=== PATIENT | female | born 1950 | race Caucasian/White ===

== ENCOUNTER → 2020-03-18 | Outpatient (REF) | payer MEDICARE, OTHER ==
[2020-03-18 16:25] LABS: BLOOD UREA NITROGEN 38 MG/DL (7-18); CALCIUM LEVEL 9.4 MG/DL (8.8-10.2); CARBON DIOXIDE LEVEL 29 MEQ/L (21-32); CHLORIDE LEVEL 104 MEQ/L (98-107); CREATININE FOR GFR 0.88 MG/DL (0.55-1.30); GLOMERULAR FILTRATION RATE > 60.0 (>39); GLUCOSE, FASTING 100 MG/DL (70-100); POTASSIUM SERUM 4.4 MEQ/L (3.5-5.1); SODIUM LEVEL 137 MEQ/L (136-145)
== END ==
LOC: M PLALAB 13:08
PROVIDERS: ATTEND Surgery
DX: C50.912 Malignant neoplasm of unspecified site of left female breast (principal)

== ENCOUNTER → 2020-03-24 | Outpatient (CLI) | payer MEDICARE, OTHER ==
[~2020-03-24] MED LIST: INDE120C5 PO
[2020-03-24 12:42] VITALS: BP 140/82
--- NOTE | 2020-03-24 16:33 | REP ---
INDICATION: C50.912 LT AXILLARY LYMPH NODE BIOPSY. COMPARISON: None TECHNIQUE: Ultrasound guidance provided for biopsy of 2 nodules in the left axilla. FINDINGS: Ultrasound guidance provided for biopsy of 2 nodules in the left axilla. IMPRESSION: Ultrasound guidance provided for biopsy of 2 nodules in the left axilla. RECOMMENDATION: Clinical follow-up. <Electronically signed by Royce Loera > 03/24/20 0343
--- NOTE | 2020-03-27 13:42 | ROOPDOC ---
[facility] Report Of Operation Report of Operation DATE OF PROCEDURE: 03/24/20 Pre- procedure DIAGNOSIS: Left axillary lymph node with thickened cortex Post-procedure DIAGNOSIS: Left axillary lymph node with thickened cortex and suspicious Left axillary suspicious nodule PROCEDURE: Ultrasound guided biopsy of the Left axillary lymph node with thickened cortex with clip placement and Ultrasound guided biopsy of the left axillary suspicious nodule with clip placement SURGEON: Yesy Martinez BLOOD LOSS: minimal COMPLICATIONS: none Lidocaine 1% LOT [id number] Expiration 05/2023 Sodium Bicarbonate 8.4% LOT [id number] Expiration 08/2020 LEFT AXILLARY SUSPICIOUS NODULE BIOPSY Hydromark clip LOT [id number] Oxesqkqije68/2023 SHAPE 4 Bx device: TEMNO 18G x 20 cm LOT [id number] Expiration 12/2022 LEFT AXILLARY LYMPH NODE WITH THICKENED CORTEX Hydromark clip LOT [id number] Expiration 12/2022 SHAPE 3 Bx device: TEMNO 18G x 20 cm LOT [id number] Expiration 12/2022 Informed consent was obtained. The most common risk and possible complications including bleeding, hematoma, bruising, infection, injury to surrounding structures were explained to the patient and the patient expressed understanding. Patient was placed on the bed in the supine position. Appropriate time out was done stating patients name, date of , and the procedure to be performed. The ultrasound was used to confirm the location of enlarged lymph node with cortex measuring 4.2 mm. Upon examination of left axillary lymph node, a small hypoechoic nodule with Doppler flow was noted which was considered suspicious on my evaluation. Decision was made to biopsy the lymph node with thickened cortex and the suspicious axillary nodule. Consent was addended and patient placed her initials next to the addendum. The left axilla was prepped and draped in the usual fashion. The procedure was started with targeting of the suspicious nodule as it was harder to see on sonography. The nodule was inferior and medial to the suspicious lymph node which was in the upper axilla and more lateral. Plain Lidocaine 1% and 8.4% sodium bicarbonate 10:1 mix was used to anesthetize the skin, the biopsy site and tissues along the anticipated biopsy tract. Small skin incision was made with blade number 11. Temno 18G cannula with introducer was inserted through the incision and advanced under the ultrasound guidance to position immediately adjacent to the suspicious axillary nodule. Next, the introducer was removed and Temno 18G biopsy device was places in the cannula. The nodule was very hard to spear through and was rolling. It appeared very dense. Extreme care was used as the vein was seen in the proximity of the nodule. Pre-biopsy imaging, and post-biopsy imaging were captured. Five good core biopsies were taken at various levels of the lesion. Specimen was placed in formaldehyde, labeled with left axillary nodule and patients name, and sent to pathology for evaluation. Next, the biopsy device and cannula were withdrawn and a clip introducer was inserted into the position immediately adjacent to the biopsied lymph node. The SHAPE 4 Hydromark clip was deployed under sonographic guidance. Post-clip placement image was captured. Manual pressure over the biopsy cavity and tract was held intermittent through the procedure due to intermittent bleeding. Upon completion of this biopsy site evaluation, additional pressure was held to assure adequate hemostasis, prior to moving toward the lymph node. No bleeding was noted upon removal of the post biopsy pressure. At this point, our attention was turned toward the left axillary lymph node with thickened cortex. Plain Lidocaine 1% and 8.4% sodium bicarbonate 10:1 mix was used to anesthetize the skin, the biopsy site and tissues along the anticipated biopsy tract. Small skin incision was made with blade number 11. Temno 18G cannula with introducer was inserted through the incision and advanced under the ultrasound guidance to position immediately adjacent to the enlarged lymph node with 4.2 mm cortex. Next, the introducer was removed and Temno 18G biopsy device was places in the cannula. Pre-biopsy imaging, and post-biopsy imaging were captured. Five good core biopsies were taken at various levels of the lesion. Specimen was placed in formaldehyde, labeled with appropriate biopsy site and patients name, and sent to pathology for evaluation. Next, the biopsy device and cannula were withdrawn and a clip introducer was inserted into the position immediately adjacent to the biopsied lymph node. The SHAPE 3 Hydromark clip was deployed under sonographic guidance. Post-clip placement image was captured. Manual pressure over the biopsy cavity and tract was held again intermittently throughout the procedure due to intermittent bleeding. Upon completion of this biopsy site evaluation, additional pressure was held to assure adequate hemostasis. No bleeding was noted upon removal of the post biopsy pressure. Postprocedural dressing was placed. Patient tolerated procedure well. Discharge instructions were discussed with the patient and the patient expressed understanding. YESY MARTINEZ DO Mar 27, 2020 13:42
== END ==
LOC: M WHCPRO 09:28
PROVIDERS: ATTEND Surgery
DX: C77.3 Secondary and unspecified malignant neoplasm of axilla and upper limb lymph nodes (principal); C50.912 Malignant neoplasm of unspecified site of left female breast

== ENCOUNTER → 2020-03-26 | Outpatient (CLI) | payer MEDICARE, OTHER ==
[~2020-03-26] MED LIST changes: +PROHANCE 279.3MG/ML 15ML VIAL As Ordered ONE
--- NOTE | 2020-03-29 08:43 | REP ---
INDICATION: MALIGNANT NEOPLASM LT BREAST. Status post ultrasound-guided needle biopsy left breast lesion February 18, 2020 at [facility]. Status post ultrasound-guided needle biopsy left axillary lymph node March 24, 2020. COMPARISON: Comparison mammography February 18, 2020 and February 12, 2020. TECHNIQUE: Three [place] MRI imaging was performed with a dedicated breast coil. Axial, coronal, and sagittal T1 and T2 weighted scans were obtained with and without fat saturation in the usual fashion. The study includes dynamically acquired post gadolinium-enhanced imaging with image subtraction. Maximum intensity projection and multi planar reformation imaging is included as well. This study is interpreted with the aid of Monitoring Division[employer], an FDA approved computer aided detection (CAD) software program, on a dedicated breast MRI workstation. The gadolinium enhancement dose is 13 mL of intravenous ProHance. FINDINGS: There are scattered fibroglandular elements bilaterally. There is a mild pattern of background parenchymal enhancement. In the left breast medially there are 2 spiculated enhancing suspicious mass is 1 very superficial and anterior in the medial aspect of the left breast measuring 8 mm in greatest diameter and the other located 2.7 cm posterior to the 1st in the medial left breast. This 2nd lesion measures 7 mm in greatest diameter. These both spiculated morphologically and both display post biopsy marker clips in their periphery. No other suspicious lesion is seen within the left breast. No suspicious lesion is seen in the right breast on pre or postcontrast imaging. There are 2 lymph nodes in the left axilla which are larger than the rest of the lymph nodes in either breast. These are not definitely abnormal by MR criteria. They measure 1 cm each in short axis dimension. Each of these displays in magnetic field susceptibility artifact from a ultrasound-guided needle biopsy marker clip. There is some post biopsy edema in the axillary subcutaneous tissues. There are 4 - 5 other axillary lymph nodes visible which are smaller and not enlarged. No internal mammary adenopathy is appreciated. Study is otherwise unremarkable. IMPRESSION: BI-RADS category 6 known left breast malignancy with 2 suspicious spiculated small masses in the medial aspect of the left breast, each of which displays a marker clip post biopsy. Marker clips are noted in 2 biopsied left axillary lymph nodes. These 2 nodes are the largest lymph nodes visible in either axilla. No other suspicious finding. <Electronically signed by Nelson Garcia > 03/29/20 1225
== END ==
LOC: M RAD 14:16
PROVIDERS: ATTEND Surgery
DX: C50.912 Malignant neoplasm of unspecified site of left female breast (principal)
CPT/HCPCS: A9576; C8908

== ENCOUNTER → 2020-04-23 | Outpatient (CLI) | payer MEDICARE, OTHER ==
[~2020-04-23] MED LIST changes: -PROHANCE 279.3MG/ML 15ML VIAL As Ordered ONE
== END ==
LOC: M LABSMTC 11:11
PROVIDERS: ATTEND Anesthesiology
DX: Z01.812 Encounter for preprocedural laboratory examination (principal); Z20.822 Contact with and (suspected) exposure to COVID-19

== ENCOUNTER 2020-04-28 10:48 | Day surgery (SDC) | payer MEDICARE, OTHER ==
[~2020-04-28] VITALS: Ht 152.4 cm; Wt 67.5 kg
[~2020-04-28 10:48] MED LIST changes: +HEPARIN SOD (PORCINE) 5000UNITS/ML 1ML VIAL/SYRINGE SQ ONE; +LIDOCAINE 1% MDV 20ML VIAL SQ PRN; +LR 1,000 ML IV ONE; +NS 1,000 ML IV ONE; +ceFAZolin SOD 2 GM in IV 1 EA IV ONE
--- OUTSIDE RECORDS SUMMARY | 2020-04-28 10:53 | CCD | Continuity of Care Document ---
Author Author [facility] Organization [facility] Address [address] [place] [address] Phone Support Name Relationship Address Phone Jeff Flowers PRS [address] [place] [address] Doctor Provided, Family No PRS Unknown Unava ilable Anuja Lopez PRS [address] [place] [address] Allergies, Adverse Reactions, Alerts No known allergies. Medications Medication Status Dose Units Route Directions Qty Days Start Date End Date Instructions Tramadol Discontinued 50 MG PO 2 Times Per Day 60 August 08, 2018 10:53am January 17, 2019 8:51am Conjugated Estrogens (Premarin) 0.625 mg tablet Discontinued 0.625 MG PO Once Per Day January 17, 2019 9:13am 2020 9:23am Propranolol Discontinued 120 MG PO Once Per Day January 17, 2019 9:14am 2020 9:23am Conjugated Estrogens (Premarin) 0.625 mg tablet Active 0.625 MG PO Once Per Day 2020 9:23am Propranolol Discontinued 120 MG PO Once Per Day 2020 9:23am 2020 9:39am Propranolol Active 120 MG PO Once Per Day 2020 9:39am Conjugated Estrogens (Premarin) 0.3 MG tablet Discontinued 0.6 MG PO Once Per Day May 02, 2018 11:34am August 08, 2018 10:13am Propranolol Discontinued 2 TAB PO Once Per Day 180 July 21, 2014 7:43am August 31, 2015 9:02am Naproxen Sodium (Aleve) 220 MG tablet Discontinued 220 MG PO Every 12 Hours 100 July 21, 2014 7:43am October 05, 2016 8:45am prn Conjugated Estrogens (Premarin) 0.625 MG tablet Discontinued 0.625 MG PO Once Per Day 90 July 21, 2014 7:43am August 31, 2015 9:02am Aspirin (Aspirin Low-Strength) 81 MG tablet,chewable Active 81 MG PO Once Per Day July 21, 2014 7:43am Conjugated Estrogens (Premarin) 0.625 MG tablet Discontinued 0.625 MG PO Once Per Day 90 August 31, 2015 9:02am October 05, 2016 9:36am Acetaminophen (Acetaminophen Extra Strength) 500 MG ta blet Discontinued 1000 MG PO Every 6 hours October 05, 2016 8:45am November 212016 10:05am Tramadol Discontinued 50 MG PO 2 Times Per Day 60 October 05, 2016 9:36am November 21, 2016 10:30am Conjugated Estrogens (Premarin*) 0.625 MG tablet Discontinued 0.625 MG PO Once Per Day 90 October 05, 2016 9:36am October 04, 2017 1:05pm Propranolol Discontinued 120 MG PO Once Per Day 90 October 05, 2016 9:36am October 04, 2017 1:05pm Tramadol Discontinued 50 MG PO 2 Times Per Day 60 November 21, 2016 10:30am January 30, 2017 9:40am Tramadol Discontinued 50 MG PO 2 Times Per Day 60 January 30, 2017 9:40am June 28, 2017 1:21pm Tramadol Discontinued 50 MG PO 2 Times Per Day 60 June 28, 2017 1:21pm August 21, 2017 8:40am Omeprazole Discontinued 20 MG PO Once Per Day 90 June 28, 2017 1:21pm July 03, 2018 6:41am Omeprazole Discontinued 20 MG PO Once Per Day 90 June 28, 2017 1:21pm January 17, 2019 8:51am Tramadol Discontinued 50 MG PO 2 Times Per Day 60 August 21, 2017 8:40am October 30, 2017 11:51am Conjugated Estrogens (Premarin) 0.625 MG tablet Discontinued 0.625 MG PO Once Per Day October 04, 2017 1:05pm July 03, 2018 7:21am Conjugated Estrogens (Premarin) 0.625 MG tablet Discontinued 0.625 MG PO Once Per Day 90 October 04, 2017 1:05pm November 05, 2018 1:58pm Propranolol Discontinued 120 MG PO Once Per Day 90 October 04, 2017 1:05pm July 03, 2018 7:21am Propranolol Discontinued 120 MG PO Once Per Day October 04, 2017 1:05pm November 05, 2018 1:58pm Tramadol Discontinued 50 MG PO 2 Times Per Day 60 October 30, 2017 11:52am November 27, 2017 8:35am Tramadol Discontinued 50 MG PO 2 Times Per Day 60 November 27, 2017 8:35am January 10, 2018 3:10pm Tramadol Discontinued 50 MG PO 2 Times Per Day 60 January 10, 2018 3:10pm May 09, 2018 2:07pm Tramadol Discontinued 50 MG PO 2 Times Per Day 60 May 09, 2018 2:07pm May 09, 2018 2:12pm Tramadol Discontinued 50 MG PO 2 Times Per Day 60 May 09, 2018 2:12pm May 09, 2018 2:13pm Tramadol Discontinued 50 MG PO 2 Times Per Day 60 May 09, 2018 2:13pm July 02, 2018 9:50am Tramadol Discontinued 50 MG PO 2 Times Per Day 60 July 02, 2018 9:50am July 03, 2018 10:59am Tramadol Discontinued 50 MG PO 2 Times Per Day 60 July 02, 2018 9:50am August 08, 2018 10:53am Conjugated Estrogens (Premarin) 0.625 mg tablet Discontinued 0.625 MG PO Once Per Day 90 November 05, 2018 1:57pm January 17, 2019 9:18am Propranolol Discontinued 120 MG PO Once Per Day 90 November 05, 2018 1:58pm January 17, 2019 9:18am Problems Active Problems Medical Problem Onset Date Status Migraine Active Breast cancer Active Postmenopausal disorder Active Inactive/Resolved Problems Medical Problem Onset Date Status Acute appendicitis Res olved Acute appendicitis with rupture Resolved Procedures Procedure Date Performed Status US BREAST BIOPSY W/ GUID ADDL Decemb er 2019 11:10am active US BREAST BIOPSY W/ GUIDANCE Decembe r 2019 11:10am active DIG MAMMO DIAG LT 2D ONLY February 022019 11:12am active US Breast - Limited Unilat February 12, 2020 8:34am completed 3D DIG MAMMO DIAG YOSSI February 12, 2020 3:45pm completed Relevant Diagnostic Tests and/or Laboratory Data Laboratory Results Test Date/Time Result Interpretation Reference Range Result Comment Performing Site White Blood Count January 20 0 8:15am 6.4 10e3/uL 4.45-10.71 [facility], [address] [facility] [address] Red Blood Count January 21, 2020 8:15am 4.41 10e6/uL 4.20-5.40 [facility], [address] [place] [address] Hemoglobin January 21, 2020 8:15am 12.7 g/dL 10.7-15.4 [facility], [address] [place] [address] Hematocrit January 21, 2020 8:15am 40.9 % 37-47 [facility], [address] [place] [address] Mean Corpuscular Volume January 8:15am 92.7 fl 80-96 [facility], [address] [place], [place] [id number] Mean Corpuscular Hemoglobin January 21, 2020 8:15am 28.8 pg 27-31 [facility], [address] [place], [place] [id number] Mean Corpuscular Hemoglobin Concent January 21, 2020 8:15am 31.1 g/dl 33-37 [facility], [address] [place] [address]402 Red Cell Distribution Width January 21, 2020 8:15am 14 % 11-15 [facility], [address] [place], [place] [id number] Platelet Count January 21, 2020 8:15am 260 10e3/ul 130-472 [facility], [address] [place], [place] [id number] Mean Platelet Volume January 21, 2020 8:15am 9.7 fl 9.1-13.1 [facility], [address] [place] [address] 24198 Neutrophils (%) (Auto) January 8:15am 50.9 % 41-77 [facility], [address] [place] [address] 22752 Absolute Neutrophil January 20, 2 020 8:15am 3.3 # 1.7-7.6 [facility], [address] [place] [address] 12973 Lymphocytes (%) (Auto) January 8:15am 38.8 % 14-46 [facility], [address] [place] [address]61 Lymphocytes # (Auto) January 21, 2020 8:15am 2.5 # 0.6-4.6 [facility], [address] [place] [address] 86868 Monocytes (%) (Auto) January 21, 2020 8:15am 6.1 % 4-12 [facility], [address] [place] [address] 85550 Monocytes # January 21, 2020 8:15am 0.4 # 0.2-1.2 [facility], [address] [place] [address] 97606 Eosinophils (%) (Auto) January 8:15am 3.0 % 0-7 [facility], [address] [place] [address] 52576 Absolute Eosinophils (CBC) January 21, 2020 8:15am 0.2 # 0.0-0.5 [facility], [address] [place] [address] 27402 Basophils (%) (Auto) January 21, 2020 8:15am 0.9 % 0.4-1.3 [facility], [address] [place] [address] 65576 Absolute Basophils (CBC) January 202019 8:15am 0.1 # 0.0-0.2 [facility], [address] [place] [address] 22813 Immature Granulocyte % (Auto) Novemb 2019 8:15am 0.3 % 0-2 [facility], [address] [place] [address] 39397 Absolute Immature Granulocyte (auto January 21, 2020 8:15am 0.0 # 0-0.1 [facility], [address] [place] [address] 71634 Add Manual Differential January 8:15am No [facility], [address] [place] [address] 11705 Blood Urea Nitrogen January 20 020 8:15am 18 mg/dL 9 [facility], [address] [place] [address] 95409 Sodium Level January 21, 2020 8:15am 140 mmol/L 132-146 [facility], [address] [place] [address] 77214 Potassium Level January 21, 2020 8:15am 4.6 mmol/L 3.5-5.5 [facility], [address] [place] [address] 03125 Chloride Level January 21, 2020 8:15am 105 mmol/l 99-109 [facility], [address] [place] [address] 86695 Carbon Dioxide Level January 21, 2020 8:15am 30 mmol/l 20-31 [facility], [address] [place] [address] 70946 Anion Gap January 21, 2020 8:15am 10 mmol/l 8-16 [facility], [address] [place] [address] 58332 Glucose Level January 21, 2020 8:15am 104 mg/dL 74-106 [facility], [address] [place] [address] 7[address]20 Creatinine January 21, 2020 8:15am 0.8 mg/dL 0.5-1.1 [facility], [address] [place] [address] 31695 Glomerular Filtration Rate Calc Nove mber 2019 8:15am Greater than 60 ml/min ABOVE 60 [facility], [address] [place] [address] 01363 Alanine Aminotransferase (ALT/SGPT) January 21, 2020 8:15am 14 U/L 10-49 [facility], [address] [place] [address] 38290 Aspartate Amino Transf (AST/SGOT) No vember 2019 8:15am 17 U/L 0-33 [facility], [address] [place] [address] Alkaline Phosphatase January 21, 2020 8:15am 62 U/L 45-129 [facility], [address] [place] [address] 62825 Calcium Level January 21, 2020 8:15am 9.1 mg/dL 8.5-10.1 [facility], [address] [place] [address] 27048 Total Bilirubin January 21, 2020 8:15am 0.3 mg/dL 0.3-1.2 [facility], [address] [place] [address] 81578 Albumin January 21, 2020 8:15am 3.3 g/dL 3.2-4.8 [facility], [address] [place] [address] 08566 Serum Total Protein January 20 8:15am 7.1 g/dL 5.7-8.2 [facility], [address] [place] [address] 81144 Triglycerides Level January 20 8:15am 255 mg/dL 0-150 [facility], [address] [place] [address] 58267 Cholesterol Level January 20 0 8:15am 247 mg/dL 120-200 [facility], [address] [place] [address] 48299 HDL Cholesterol January 21, 2020 8:15am 63 mg/dL HDL Less than 40 mg/dL: Major risk for CHDHDL Greater than 59 mg/dL: Low risk for CHD [facility], [address] [facility] [address] LDL Cholesterol, Calculated January 21, 2020 8:15am 133 mg/dL 0-100 [facility], [address] [facility] [address] Surgical Pathology Specimen February 18, 2020 11:11am See scanned report [facility], [address] [facility] [address] Diagnostic Imaging Reports Report Dictated Date/Time Dictated By Status Radiology Report February 13, 2020 9:27a m Lucille Santo MD completed [facility] [address] [place] [address] [phone] NAME SEX PT STATUS ACCOUNT NUMBER JORGE RUANO REG REF [id number] ORDERING PHYSICIAN LOCATION MEDICAL RECORD NO. Anuja JORGE LUIS Lopez MAMMO [id number] ATTENDING PHYSICIAN DATE OF DATE OF EXAM/TIME Anuja Lopez NP 1950 02[birth year]12/20833 TYPE / EXAM US Breast - Limited Unilat REASON FOR EXAM LEFT BREAST LUMP COMPARISON: None Multiple images of the left breast at the 8:00 location were obtained, encompassing the area of clinical concern. FINDINGS: There are 2 solid masses identified ON seen at 8:00 just beneath the skin measuring approximately 7.3 x 7.8 x 0.8 by 6.1 mm. The second is demonstrated mid depth at 8:00 measuring approximately 8.2 x 8.7 x 9.3 mm with posterior shadowing and tolerated than wide appearance indistinct margins. Both masses are considered highly suspicious for neoplasia. IMPRESSION: Two suspicious masses at 8:00. Ultrasound-guided biopsy of both masses is recommended for further evaluation. OVERALL FINAL ASSESSMENT OF FINDINGS BI-RADS 5 - Highly Suggestive of Malignancy Reported By Lucille Santo MD on 02/13/20926 Signed By Lucille Santo MD on 02/13/20928 Date Time CC: Anuja KANG John; Lucille Santo MD Techn: JOSE RAUL Trans Dt/Tm: Trans by: DT Prt Dt/Tm: [id number]: Total DLP = 0.00 mGy-cm 7369-4006: Total Radiation Dose = 0.0000 mSv Lifetime Dose: 0 mSv Radiology Report February 13, 2020 3:55p m Lucille Santo MD [facility] [address] [place] [address] [phone] NAME SEX PT STATUS ACCOUNT NUMBER JORGE RUANO REG REF [id number] ORDERING PHYSICIAN LOCATION MEDICAL RECORD NO. 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 FINDINGS: Craniocaudad and oblique lateral views of the breasts were obtained. The b reasts are primarily of fat density. There is an 8 mm mass seen in the medial aspect of the left breast in the palpable region indicated by the patient. There is an additional 8mm mass seen posterior to that region which appears to be connected to the palpable area TARGETED ULTRASOUND OF THE LEFT BREAST. COMPARISON: None FINDINGS: Ultrasound left breast in the palpable region reveals a subcutaneous mass measuring approximately 0.73 x 0.7 85.61 cm with ill-defined margins and features highly suspicious of neoplasia. A second mass is seen posteriorly and slightly medially at 8:00 with posterior shadowing measuring approximately 0.82 x 0.87 x 0.93 cm that also has features considered highly suspicious for neoplasia. Ultrasound left axilla revealed morphologically normal lymph nodes. However one lymph node had a cortical thickness of approximately 4.1 mm. IMPRESSION: There is an area of spiculated mass seen in the corresponds to the palpable region in the left breast. A second area is noted posteriorly and appears to be connected to the first mass. This mass is also considered highly suspicious for malignancy. Both masses are identified on ultrasound. Ultrasound-guided biopsy is recommended for further evaluation. Ultrasound the axilla revealed one lymph node that has a cortical thickness of 4 mm. This area will be rescanned and co nsidered for biopsy as well at the time of biopsy of the 2 masses in the left breast.. OVERALL FINAL ASSESSMENT OF FINDINGS BI-RADS 5 - Highly Suggestive of Malignancy OVERALL FINAL ASSESSMENT OF THE BREAST COMPOSITION Breast Density Classification: A Description: The breasts are almost entirely fatty. Reported By Lucille Santo MD on 02/13/20 1555 Signed By Lucille Santo MD on 02/13/20 1630 Date Time CC: Anuja Lopez; Lucille Santo MD Techn: PELBU Trans Dt/Tm: Trans by: DT Prt Dt/Tm: : Total DLP = 0.00 mGy-cm : Total Radiation Dose = 0.0000 mSv Lifetime Dose: 0 mSv Health Concerns Health Concerns may be documented in an alternate section. Advance Directives Advance Directive Response Recorded Date/Time Advanced Directive No Ma 2018 1:17pm Does Patient have a DNR? No July 24, 2018 1:17pm Healthcare Proxy No July 24, 2018 1:17pm Living Will No July 24, 2018 1:17pm Chief Complaint and Reason for Visit Chief Complaint Medicare Annual Well ness subsequent Encounter to Establish Care Z09,E78.5 LUMP LEFT BREAST BIOPSY X 2 Test result Reason for Visit Migraine Encounters Encounter Location(s) Ar rival/Admit Date Discharge/Depart Date Provider(s) Departed Physician/Provider Office Visit -[facility] May 27, 2019 7:59am May 27, 2019 9:17am Jeff Flowers MD Departed Physician/Provider Office Visit -[facility] 2020 9:09am 2020 10:08am Anuja Lopez Registered Referred -Laboratory January 21, 2020 8:07am Anuja Lopez Registered Referred -Mammography February 12, 2020 7:34am Anuja Lopez Registered Referred -Ultrasound February 18, 2020 9:48am Anuja Lopez Departed Physician/Provider Office Visit -[facility] February 25, 2020 1:56pm February 25, 2020 2:41pm Anuja Lopez Recent Diagnosis Onset Date Migraine Assessments Diagnosis Onset Date Res olution Status Migraine acute Family History Relationship Condition A ge at Onset Recorded Date/Time Not Specified Vision disorder Unknown Diabetes mellitus Unkn own Cerebrovascular accident (CVA) Unknown Carcinoma of prostate Unknown Blindness of both eyes Unknown Functional Status No Functional Status information available Goals Goals may be documented in an alternate section. Immunizations No Immunization Information Available Mental Status No Mental Status Information Available Medical Equipment No Medical Equipment Information available Insurance Providers Guarantor JORGE RUANO Address [address] [place] [address] Contact Info. Home Phone: Payer Policy Id Coverage Id Subscriber's Name Subscriber Id Effective Date Expiration Date MEDICARE [employer] [id number] Jorge Ruano [id number] 2014 [facility] [id number] Jorge Ruano [id number] 2014 [facility] SA[facility] [id number] Jorge Ruano [id number] MEDICARE [id number] Jorge Ruano [id number] Self Pay Self N/A [facility] [id number] Jorge Ruano [id number] Plan of Treatment DUE FOR FLU SHOT, PNEUMONIA SHOT, SHINGRIX WANTS TO THINK ABOUT IT. IS IN HOSPITAL. DOESN'T WANT TO DO THEM TODAY. RTC MAY 2020 Doing well. Continue current plan and recheck 12 months for next annual wellness visit. Future Tests Future scheduled test information is unavailable Pending Tests Pending diagnostic test information is unavailable Future Visits Future appointment information is unavailable Referrals to Other Providers Referral information is unavailable Future Procedures Future procedure information is unavailable Future Medications Future medication information is unavailable Patient Instructions Patient instructions are unavailable Social History Smoking Status Status Date of Observation Never smoker December 22, 2019 11:0 8am Observation Status Date of Observation Not July 24, 2018 Observation Status Observation Response Rigoberto e of Response Smoking Status Never smoker December 22, 2019 10:08am Alcohol Use No July 24, 2018 1:17pm Substance Use No July 1:17pm Assigned Sex Female Vital Signs Vital Reading Result Ref erence Range Collection Date/Time Height 61 [in_i] May 27, 2019 9:07am Weight 151.12 [lb_av] May 27, 2019 9:07am Body Temperature 98 [degF] 97.6-99.5 May 27, 2019 9:07am Heart Rate 82 /min 60-100 May 27, 2019 9:07am Respiratory rate 18 /min 12-May 27, 2019 9:07am Oxygen saturation by Pulse oximetry 98 % 95- 100 May 27, 2019 9:07am BP Systolic 102 mm[Hg] May 27, 2019 9:07am BP Diastolic 64 mm[Hg] May 27, 2019 9:07am BMI (Body Mass Index) 28.5 kg/m2 May 27, 2019 9:07am Height 61 [in_i] 2020 9:20am Weight 148.05 [lb_av] 2020 9:20am Heart Rate 68 /min 60-100 2020 9:20am Respiratory rate 18 /min -2020 9:20am Oxygen saturation by Pulse oximetry 98 % 95- 100 2020 9:20am BP Systolic 120 mm[Hg] 2020 9:20am BP Diastolic 60 mm[Hg] 2020 9:20am BMI (Body Mass Index) 27.9 kg/m2 2020 9:20am
--- OUTSIDE RECORDS SUMMARY | 2020-04-28 10:53 | CCD ---
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 Name Role Phone Chary Park MD Unavailable Unavailable Chary Park MD Unavailable Unavailable Chary Park MD Unavailable Unavailable Chary Park MD Unavailable Unavailable Chary Park MD Unavailable Unavailable Chary Park MD Unavailable Unavailable John, H Anuja JIRA ADMINISTRATOR Unavailable Unavailable John, H Anuja JIRA ADMINISTRATOR Unavailable Unavailable John, H Anuja JIRA ADMINISTRATOR Unavailable Unavailable John, H Anuja JIRA ADMINISTRATOR Unavailable Unavailable John, H Anuja JIRA ADMINISTRATOR Unavailable Unavailable John, H Anuja JIRA ADMINISTRATOR Unavailable Unavailable John, H Anuja JIRA ADMINISTRATOR Unavailable Unavailable John, H Anuja JIRA ADMINISTRATOR Unavailable Unavailable John, H Anuja JIRA ADMINISTRATOR Unavailable Unavailable John, H Anuja JIRA ADMINISTRATOR Unavailable Unavailable John, H Anuja JIRA ADMINISTRATOR Unavailable Unavailable John, H Anuja JIRA ADMINISTRATOR Unavailable Unavailable John, H Anuja JIRA ADMINISTRATOR Unavailable Unavailable John, H Anuja JIRA ADMINISTRATOR Unavailable Unavailable John, H Anuja JIRA ADMINISTRATOR Unavailable Unavailable John, H Anuja JIRA ADMINISTRATOR Unavailable Unavailable John, H Anuja JIRA ADMINISTRATOR Unavailable Unavailable John, H Anuja JIRA ADMINISTRATOR Unavailable Unavailable John, H Anuja JIRA ADMINISTRATOR Unavailable Unavailable John, H Anuja JIRA ADMINISTRATOR Unavailable Unavailable John, H Anuja JIRA ADMINISTRATOR Unavailable Unavailable John, H Anuja JIRA ADMINISTRATOR Unavailable Unavailable John, H Anuja JIRA ADMINISTRATOR Unavailable Unavailable John, H Anuja JIRA ADMINISTRATOR Unavailable Unavailable John, H Anuja JIRA ADMINISTRATOR Unavailable Unavailable Jonh, H Anuja JIRA ADMINISTRATOR Unavailable Unavailable John, H Anuja JIRA ADMINISTRATOR Unavailable Unavailable John, H Anuja JIRA ADMINISTRATOR Unavailable Unavailable John, H Anuja JIRA ADMINISTRATOR Unavailable Unavailable John, H Anuja JIRA ADMINISTRATOR Unavailable Unavailable John, H Anuja JIRA ADMINISTRATOR Unavailable Unavailable John, H Anuja JIRA ADMINISTRATOR Unavailable Unavailable Ojhn, H Anuja JIRA ADMINISTRATOR Unavailable Unavailable John, H Anuja JIRA ADMINISTRATOR Unavailable Unavailable John, H Anuja JIRA ADMINISTRATOR Unavailable Unavailable John, H Anuja JIRA ADMINISTRATOR Unavailable Unavailable John, H Anuja JIRA ADMINISTRATOR Unavailable Unavailable John, H Anuja JIRA ADMINISTRATOR Unavailable Unavailable John, H Anuja JIRA ADMINISTRATOR Unavailable Unavailable John, H Anuja JIRA ADMINISTRATOR Unavailable Unavailable John, H Anuja JIRA ADMINISTRATOR Unavailable Unavailable John, H Anuja JIRA ADMINISTRATOR Unavailable Unavailable John, H Anuja JIRA ADMINISTRATOR Unavailable Unavailable John, H Anuja JIRA ADMINISTRATOR Unavailable Unavailable John, H Anuja JIRA ADMINISTRATOR Unavailable Unavailable John, H Anuja JIRA ADMINISTRATOR Unavailable Unavailable John, H Anuja JIRA ADMINISTRATOR Unavailable Unavailable John, H Anuja JIRA ADMINISTRATOR Unavailable Unavailable John, H Anuja JIRA ADMINISTRATOR Unavailable Unavailable John, H Anuja JIRA ADMINISTRATOR Unavailable Unavailable John, H Anuja JIRA ADMINISTRATOR Unavailable Unavailable John, H Anuja JIRA ADMINISTRATOR Unavailable Unavailable John, H Anuja JIRA ADMINISTRATOR Unavailable Unavailable John, H Anuja JIRA ADMINISTRATOR Unavailable Unavailable John, H Anuja JIRA ADMINISTRATOR Unavailable Unavailable John, H Anuja JIRA ADMINISTRATOR Unavailable Unavailable John, H Anuja JIRA ADMINISTRATOR Unavailable Unavailable Ramiro Holland MD Unavailable Unavailable Ramiro Holland MD Unavailable Unavailable Ramiro Holland MD Unavailable Unavailable Ramiro Holland MD Unavailable Unavailable Ramiro Holland MD Unavailable Unavailable Ramiro Holland MD Unavailable Unavailable Ramiro Holland MD Unavailable Unavailable Ramiro Holland MD Unavailable Unavailable Ramiro Holland MD Unavailable Unavailable Ramiro Holland MD Unavailable Unavailable Ramiro Holland MD Unavailable Unavailable Ramiro Holland MD Unavailable Unavailable Ramiro Holland MD Unavailable Unavailable Ramiro Holland MD Unavailable Unavailable Ramiro Holland MD Unavailable Unavailable Ramiro Holland MD Unavailable Unavailable Ramiro Holland MD Unavailable Unavailable Ramiro Holland MD Unavailable Unavailable Ramiro Holland MD Unavailable Unavailable Ramiro Holland MD Unavailable Unavailable Ramiro Holland MD Unavailable Unavailable Ramiro Holland MD Unavailable Unavailable Ramiro Holland MD Unavailable Unavailable Ramiro Holland MD Unavailable Unavailable Ramiro Holland MD Unavailable Unavailable Ramiro Holland MD Unavailable Unavailable Ramiro Holland MD Unavailable Unavailable Ramiro Holland MD Unavailable Unavailable Ramiro Holland MD Unavailable Unavailable Ramiro Holland MD Unavailable Unavailable Ramiro Holland MD Unavailable Unavailable Ramiro Holland MD Unavailable Unavailable Ramiro Holland MD Unavailable Unavailable Ramiro Holland MD Unavailable Unavailable Ramiro Holland MD Unavailable Unavailable Ramiro Holland MD Unavailable Unavailable Ramiro Holland MD Unavailable Unavailable Ramiro Holland MD Unavailable Unavailable Ramiro Holland MD Unavailable Unavailable Ramiro Holland MD Unavailable Unavailable Ramiro Hloland MD Unavailable Unavailable Ramiro Holland MD Unavailable Unavailable Ramiro Holland MD Unavailable Unavailable Ramiro Holland MD Unavailable Unavailable Ramiro Holland MD Unavailable Unavailable Ramiro Holland MD Unavailable Unavailable Ramiro Holland MD Unavailable Unavailable Ramiro Holland MD Unavailable Unavailable Ramiro Holland MD Unavailable Unavailable Ramiro Holland MD Unavailable Unavailable Ramiro Holland MD Unavailable Unavailable Ramiro Holland MD Unavailable Unavailable Ramiro Holland MD Unavailable Unavailable Ramiro Holland MD Unavailable Unavailable Ramiro Holland MD Unavailable Unavailable Ramiro Holland MD Unavailable Unavailable Ramiro Holland MD Unavailable Unavailable Ramiro Holland MD Unavailable Unavailable Ramiro Holland MD Unavailable Unavailable Ramiro Holland MD Unavailable Unavailable Ramiro Holland MD Unavailable Unavailable Ramiro Holland MD Unavailable Unavailable Ramiro Holland MD Unavailable Unavailable Ramiro Holland MD Unavailable Unavailable Ramiro Holland MD Unavailable Unavailable Ramiro Holland MD Unavailable Unavailable Ramiro Holland MD Unavailable Unavailable Ramiro Holland MD Unavailable Unavailable Ramiro Holland MD Unavailable Unavailable Ramiro Holland MD Unavailable Unavailable Ramiro Holland MD Unavailable Unavailable Ramiro Holland MD Unavailable Unavailable Ramiro Holland MD Unavailable Unavailable Ramiro Holland MD Unavailable Unavailable Ramiro Holland MD Unavailable Unavailable Ramiro Holland MD Unavailable Unavailable Ramiro Holland MD Unavailable Unavailable Ramiro Holland MD Unavailable Unavailable Ramiro Holland MD Unavailable Unavailable Ramiro Holland MD Unavailable Unavailable Ramiro Holland MD Unavailable Unavailable Ramiro Holland MD Unavailable Unavailable Ramiro Holland MD Unavailable Unavailable Ramiro Holland MD Unavailable Unavailable Ramiro Holland MD Unavailable Unavailable Ramiro Holland MD Unavailable Unavailable Ramiro Holland MD Unavailable Unavailable Ramiro Holland MD Unavailable Unavailable Ramiro Holland MD Unavailable Unavailable Doctor Provided, Family PHYS No Family Unavailable U navailable YENI DC MD Unavailable Unavailable YENI DC MD Unavailable Unavailable YENI DC MD Unavailable Unavailable YENI DC MD Unavailable Unavailable YENI DC MD Unavailable Unavailable YENI DC MD Unavailable Unavailable YENI DC MD Unavailable Unavailable YENI DC MD Unavailable Unavailable YENI DC MD Unavailable Unavailable YENI DC MD Unavailable Unavailable YENI DC MD Unavailable Unavailable YENI DC MD Unavailable Unavailable YENI DC MD Unavailable Unavailable JEN, YENI MD Unavailable Unavailable JEN, YENI MD Unavailable Unavailable JEN, YENI MD Unavailable Unavailable JEN, YENI MD Unavailable Unavailable JEN, YENI MD Unavailable Unavailable JEN, YENI MD Unavailable Unavailable JEN, YENI MD Unavailable Unavailable JEN, YENI MD Unavailable Unavailable JEN, YENI MD Unavailable Unavailable JEN, YENI MD Unavailable Unavailable JEN, YENI MD Unavailable Unavailable JEN, YENI MD Unavailable Unavailable JEN, YENI MD Unavailable Unavailable JEN, YENI MD Unavailable Unavailable JEN, YENI MD Unavailable Unavailable JEN, YENI MD Unavailable Unavailable JEN, YENI MD Unavailable Unavailable JEN, YENI MD Unavailable Unavailable JEN, YENI MD Unavailable Unavailable JEN, YENI MD Unavailable Unavailable JEN, YENI MD Unavailable Unavailable JEN, YENI MD Unavailable Unavailable JEN, YENI MD Unavailable Unavailable JEN, YENI MD Unavailable Unavailable JEN, YENI MD Unavailable Unavailable JEN, YENI MD Unavailable Unavailable JEN, YENI MD Unavailable Unavailable JEN, YENI MD Unavailable Unavailable JEN, YENI MD Unavailable Unavailable JEN, YENI MD Unavailable Unavailable JEN, YENI MD Unavailable Unavailable JEN, YENI MD Unavailable Unavailable JEN, YENI MD Unavailable Unavailable JEN, YENI MD Unavailable Unavailable JEN, YENI MD Unavailable Unavailable JEN, YENI MD Unavailable Unavailable JEN, YENI MD Unavailable Unavailable JEN, YENI MD Unavailable Unavailable JEN, YENI MD Unavailable Unavailable Re-disclosure Warning The records that you are about to access may contain information from federally-assisted alcohol or drug abuse programs. If such information is present, then the following federally mandated warning applies: This information has been disclosed to you from records protected by federal confidentiality rules (42 CFR part 2). The federal rules prohibit you from making any further disclosure of this information unless further disclosure is expressly permitted by the written consent of the person to whom it pertains or as otherwise permitted by 42 CFR part 2. A general authorization for the release of medical or other information is NOT sufficient for this purpose. The Federal rules restrict any use of the information to criminally investigate or prosecute any alcohol or drug abuse patient.The records that you are about to access may contain highly sensitive health information, the redisclosure of which is protected by Article 27-F of the [facility] Public Health law. If you continue you may have access to information: Regarding HIV / AIDS; Provided by facilities licensed or operated by the [facility] Office of Mental Health; or Provided by the [facility] Office for People With Developmental Disabilities. If such information is present, then the following [facility] mandated warning applies: This information has been disclosed to you from confidential records which are protected by state law. State law prohibits you from making any further disclosure of this information without the specific written consent of the person to whom it pertains, or as otherwise permitted by law. Any unauthorized further disclosure in violation of state law may result in a fine or halfway sentence or both. A general authorization for the release of medical or other information is NOT sufficient authorization for further disc losure. Allergies and Adverse Reactions Type Description Substance Reaction Status Data Source(s ) Drug allergy No Known Drug Allergies No Known Drug Allergies [facility] Family History Family Member Name Family Member Gender Family Member Status Date o f Status Description Data Source(s) Unknown Condition [facility] Unknown Condition [facility] Unknown Condition [facility] Unknown Condition [facility] Unknown Condition [facility] Condition [facility] Condition [facility] Condition [facility] Condition [facility] Condition [facility] Condition [facility] Condition [facility] Condition [facility] Condition [facility] Condition [facility] Condition [facility] Condition [facility] Condition [facility] Condition [facility] Condition [facility] Condition [facility] Unknown Condition [facility] Unknown Condition [facility] Unknown Condition [facility] Encounters Encounter Providers Location Date Indications Data Source(s ) Outpatient Attender: YENI DC MD 04/20/2020 09:52:00 AM ES T R94.5 [facility] R94.5 Outpatient Attender: YENI DC MDReferrer: Anuja Lopez NP 04/20/2020 08:35:00 AM EST - 04/20/2020 09:28:00 AM EST [facility] Outpatient Attender: YENI DC MD 04/19/2020 07:44:00 AM EST PREOP Z01.818,C50.912,Z17.0 [facility] PREOP Z01.818,C50.912,Z17.0 Unknown [address] [facility] [address] 04/14/2020 12:00:00 AM EST eCW1 ([facility] hospital[facility] [place] [address] [facility] [address] 04/08/2020 12:00:00 AM EST eCW1 (Critical access hospital) [place] [address] [facility] [address] 04/07/2020 12:00:00 AM EST eCW1 (Critical access hospital) Outpatient Admitter: Chary Park MDReferrer: Chary Park MD 03/30/2020 12:00:00 AM EST Malignant neoplasm of unspecified site o f right female [facility] Malignant neoplasm of unspecified site o f right female breast Outpatient [address] [facility] [address] 03/29/2020 12:00:00 AM EST eCW1 (Critical access hospital) [place] [address] [facility] [address] 03/18/2020 12:00:00 AM EST eCW1 (Critical access hospital) Outpatient Attender: Anuja Ybarraeferrer: Anuja Lopez NP 02/25/2020 01:56:00 PM EST - 02/25/2020 02:41:00 PM EST [facility] Outpatient Attender: Anuja Lopez NP 02/18/2020 09:48:0 0 AM EST LEFT BREAST BIOPSY X 2 [facility] LEFT BREAST BIOPSY X 2 Outpatient Attender: Anuja Lopez NP 02/12/2020 07:34:[address] [facility] Outpatient Attender: Anuja Lopez NP 01/21/2020 08:07:[address] Z09,E78.5 [facility] Z09,E78.5 Outpatient Attender: Anuja Ybarraeferrer: No Family Doctor Provided 2020 09:09:[facility]ender: Jeff Holland MDReferrer: Jeff Holland MD 05/27/2019 08:59:00 AM EDT - 05/27/2019 10:17:00 AM EDT [facility] Medications Medication Brand Name Start Date Product Form Dose Route Admi nistrative Instructions Pharmacy Instructions Status Indications Reaction Description Data Source(s) Lidocaine 25 MG/ML / Prilocaine 25 MG/ML Topical Cream Lidocaine-Prilocaine 2.5- 2.5 % Lidocaine-Prilocaine 2.5-2.5 % 03/26/2020 12:00:00 AM EST active Lidocaine-Prilocaine 2.5-2.5 % e CW1 ([facility]) Lidocaine 25 MG/ML / Prilocaine 25 MG/ML Topical Cream Lidocaine-Prilocaine 2.5- 2.5 % Lidocaine-Prilocaine 2.5-2.5 % 03/26/2020 12:00:00 AM EST active Lidocaine-Prilocaine 2.5-2.5 % e CW1 ([facility]) Lidocaine 25 MG/ML / Prilocaine 25 MG/ML Topical Cream Lidocaine-Prilocaine 2.5- 2.5 % Lidocaine-Prilocaine 2.5-2.5 % 03/26/2020 12:00:00 AM EST active Lidocaine-Prilocaine 2.5-2.5 % e CW1 ([facility]) Lidocaine 25 MG/ML / Prilocaine 25 MG/ML Topical Cream Lidocaine-Prilocaine 2.5- 2.5 % Lidocaine-Prilocaine 2.5-2.5 % 03/26/2020 12:00:00 AM EST active Lidocaine-Prilocaine 2.5-2.5 % e CW1 ([facility]) 24 HR Propranolol Hydrochloride 120 MG Extended Releas e Oral Capsule Propranolol 2020 09:39:17 AM EST 120 MG active [facility] 24 HR Propranolol Hydrochloride 120 MG Extended Releas e Oral Capsule Propranolol 2020 09:39:17 AM EST 120 MG active [facility] 24 HR Propranolol Hydrochloride 120 MG Extended Releas e Oral Capsule Propranolol 2020 09:39:17 AM EST 120 MG active [facility] 24 HR Propranolol Hydrochloride 120 MG Extended Releas e Oral Capsule Propranolol 2020 09:23:47 AM EST 120 MG completed [facility] 24 HR Propranolol Hydrochloride 120 MG Extended Releas e Oral Capsule Propranolol 2020 09:23:47 AM EST 120 MG completed [facility] 24 HR Propranolol Hydrochloride 120 MG Extended Releas e Oral Capsule Propranolol 2020 09:23:47 AM EST 120 MG completed [facility] Estrogens, Conjugated (HALF-WAY) 0.625 MG Ora l Tablet [Premarin] Conjugated Estrogens (Premarin) 0.625 mg tablet Conjugated Estrogens (Premarin) 0.625 mg tablet 2020 09:23:43 AM EST 0.625 MG active [facility] Estrogens, Conjugated (HALF-WAY) 0.625 MG Ora l Tablet [Premarin] Conjugated Estrogens (Premarin) 0.625 mg tablet Conjugated Estrogens (Premarin) 0.625 mg tablet 2020 09:23:43 AM EST 0.625 MG active [facility] Estrogens, Conjugated (HALF-WAY) 0.625 MG Ora l Tablet [Premarin] Conjugated Estrogens (Premarin) 0.625 mg tablet Conjugated Estrogens (Premarin) 0.625 mg tablet 2020 09:23:43 AM EST 0.625 MG completed [facility] 24 HR Propranolol Hydrochloride 120 MG Extended Releas e Oral Capsule Propranolol 01/17/2019 09:14:16 AM EST 120 MG completed [facility] 24 HR Propranolol Hydrochloride 120 MG Extended Releas e Oral Capsule Propranolol 01/17/2019 09:14:16 AM EST 120 MG completed [facility] 24 HR Propranolol Hydrochloride 120 MG Extended Releas e Oral Capsule Propranolol 01/17/2019 09:14:16 AM EST 120 MG completed [facility] Estrogens, Conjugated (HALF-WAY) 0.625 MG Ora l Tablet [Premarin] Conjugated Estrogens (Premarin) 0.625 mg tablet Conjugated Estrogens (Premarin) 0.625 mg tablet 01/17/2019 09:13:46 AM EST 0.625 MG completed [facility] Estrogens, Conjugated (HALF-WAY) 0.625 MG Ora l Tablet [Premarin] Conjugated Estrogens (Premarin) 0.625 mg tablet Conjugated Estrogens (Premarin) 0.625 mg tablet 01/17/2019 09:13:46 AM EST 0.625 MG completed [facility] Estrogens, Conjugated (HALF-WAY) 0.625 MG Ora l Tablet [Premarin] Conjugated Estrogens (Premarin) 0.625 mg tablet Conjugated Estrogens (Premarin) 0.625 mg tablet 01/17/2019 09:13:46 AM EST 0.625 MG [facility] Insurance Providers Payer name Policy type / Coverage type Policy ID Covered libertarian ID Covered libertarian's relationship to marino Policy [place] Plan Information FOR LIFE [id number] MEDICARE [id number] SP [id number] FOR LIFE U [id number] Self [id number] MEDICARE A [id number] Self [id number] K55 FOR LIFE [id number] SP [id number] MEDICARE PART A -O/P [id number] FOR LIFE -O/P [id number] 01 [id number] MEDICARE -O/P [id number] N REGIONAL CLAIMS [place]-O/P [id number] 01 [id number] [facility] [id number] Problems, Conditions, and Diagnoses Code Display Name Description Problem Type Effective Dates Data Source(s) C50.912 [id number] Malignant neoplasm of unspecifie d site of left female breast Problem 03/18/2020 12:00:00 AM [facility] eCW1 ([facility]) C50.911 Malignant neoplasm of unspecified site o f right female breast Malignant neoplasm of unspecified site of right female breast Diagnosis 10:27:00 AM [facility] Surgeries/Procedures Procedure Description Date Indications Data Source(s) Plain chest X-ray (procedure) 04/19/2020 08:07:00 AM E [facility] Mammography (procedure) 02/18/2020 11:12:00 AM [facility] Mammography (procedure) 02/18/2020 11:12:00 AM [facility] Percutaneous needle biopsy of breast using ultrasound adrien ce (procedure) 02/18/2020 11:10:00 [facility] W/ GUIDANCE 02/18/2020 11:10:00 AM [facility] US BREAST BIOPSY W/ GUIDANCE 02/18/2020 11:10:00 AM [facility] Ultrasound scan and biopsy of breast (procedure) 02/17 11:10:00 AM [facility] 3D DIG MAMMO DIAG YOSSI 02/12/2020 03:45:00 PM [facility] 3D DIG MAMMO DIAG YOSSI 02/12/2020 03:45:00 PM [facility] Ultrasonography of breast (procedure) 02/12/2020 08:34 :00 AM [facility] Ultrasonography of breast (procedure) 02/12/2020 08:34 :00 AM [facility] Results ID Date Data Source [id number] 04/23/2020 11:52:00 AM [facility] Name Value Range Interpretation Code Description Data Roxana rce(s) Supporting Document(s) SARS coronavirus 2 RNA Not Detected [facility] This lab was ordered by [facility] and reported by [facility]. ID Date Data Source [id number] 04/20/2020 12:28:00 PM [facility] Name Value Range Interpretation Code Description Data Roxana rce(s) Supporting Document(s) Alanine aminotransferase [Enzymatic acti vity/volume] in Serum or Plasma by With P-5'-P 135 U/L 10-49 Above high normal [facility] Aspartate aminotransferase [Enzymatic ac tivity/volume] in Serum or Plasma by With P-5'-P 63 U/L 0-33 Above high normal [facility] Alkaline phosphatase [Enzymatic activity/volume] in Serum or Plasma 115 U/L 45-129 [facility] Bilirubin.total [Mass/volume] in Serum or Plasma 0.3 mg/dL 0.3-1.2 [facility] Bilirubin.direct [Mass/volume] in Serum or Plasma Less Than 0.1 0.0-0 .2 [facility] Albumin [Mass/volume] in Serum or Plasma by Bromocresol purple (BCP) dye binding method 3.6 g/dL 3.2-4.8 [facility] ital Protein [Mass/volume] in Serum or Plasma 7.8 g/dL 5.7-8.2 [facility] ID Date Data Source [id number] 04/20/2020 08:42:00 AM [facility] Patient Name: ELIN RUANO : 1950 Sex: F Pt Unit #: [id number] Location:[facility] Provider: Visit Date/Time: 04/20/20 Primary Insurance: MEDICARE [facility] Secondary Insurance: [facility] Intake Vital Signs 04/20/20 08:42 Current Height 5 ft 1 in Current Weight 149 lb 4 oz Weight Measurement Method Standing Scale BMI 28.2 BP 130/70 Blood Pressure Location Rt brachial Position Sitting Respiration 16 Pulse 75 Pulse Source Pulse Oximeter Temp 98.1 F Temp Source Oral Pulse Oximetry (%) 97 Intake Visit Reasons: Pre-operative H P Nurse Note: 70 YEAR OLD FEMALE HERE FOR PRE-OP for left breast lumpectomy, is scheduled 04/28/20 with Andria Manzanares in [place]. 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: No Accompanied by: Self / Same as Patient Is patient in pain?: No Allergies No Known Drug Allergies Allergy (Verified 04/20/20 08:57) Medications - Last Reconciled 04/20/20 by Yeni Dc DO aspirin (Aspirin Low-Strength) 81 mg PO DAILY propranolol ER 120 mg PO DAILY Fall Risk History of falls: No Ambulatory Aid:: None Gait/Transferring:: Normal Medications:: No High Risk Medications HIV Testing Offer - ages 13-64 Requirement for HIV testing offer been met?: Not in age range Hep C Testing Offered: Yes Hep C Requirement met: Refuses today SBIRT Annual Questionnaire Are you currently in recovery for alcohol or substance use?: No How many times in the past year have you had 4 or more drinks in a day?: None How many times in the past year have you used a recreational drug or used a prescription medication for nonmedical reasons?: None Do you need a note to return Do you need a note to return to daycare/school/sports/work: No Coronavirus Screening Screening Are you currently positive or on isolation for COVID ?: No Do you have any NEW signs of one or more of the following?: no symptoms PFSH Medical History Hypovitaminosis D Menopause menses @ 12,menopause @ 44,2 pregnancies w/2 live births Migraine Surgical History Appendectomy ( 2019) History of hysterectomy Family History Father Disorder of vision Diabetes Stroke Carcinoma of prostate Blind in both eyes Social History (Updated 04/20/20 @ 09:01 by Yeni Dc DO) Does the Patient have a Healthcare Proxy: Yes (, Viola Ruano) Does Patient have a DNR?: No Does Patient have a Living Will?: No Does the Patient have a MOLST?: No Advance Directives on File or in chart?: No household members: spouse housing: house marital status: number of children: 2 number of grandchildren: 2 highest education level completed: Associate degr ee: occupational, technical, vocational program service: No halfway: No current occupational status: retired pets and animals: Yes Hx Recent Travel (where): No Smoking Status: Never smoker HPI Pre-Operative H P Surgery Information Proposed Surgical Procedure: left breast lumpectomy Date of surgery: 04/28/20 Surgeon: dr. Brown Anesthesia: general Covid Screening Pre-Op Covid testing ordered?: No Exercise tolerance Can climb one flight of stairs (12-13 steps) in less than 30 seconds without stopping and without symptoms: Yes Distance able to walk (blocks): 4 Risk factors Pulmonary risk factors: age > 60 Active cardiac conditions: none Active risk factors: none Sleep apnea risks: No Pertinent Past History Previous surgical complications: No Previous anesthesia intolerance: No Steroid use in last 6 months: No Allergies to meds or foods: No Pertinent Family History Family hx adverse reaction to anesthesia: No Family history coagulopathy: No Menstrual History Menopausal?: Yes Surgical Risk Surgical risk for this patient: Intermediate Review of Systems Const Reports as per HPI Eyes Reports system reviewed and no additional complaints, except as documented ENT Reports system reviewed and no additional complaints, except as documented Card Reports system reviewed and no additional complaints, except as documented Resp Reports system reviewed and no additional complaints, except as documented GI Reports system reviewed and no additional complaints, except as documented Genitourinary: Reports system reviewed and no additional complaints, except as documented Musc Reports system reviewed and no additional complaints, except as documented Skin/Breast Reports as per HPI Neuro Reports system reviewed and no additional complaints, except as documented Psych Reports system reviewed and no additional complaints, except as documented Endo Reports system reviewed and no additional complaints, except as documented Denzel/Lymph Reports system reviewed and no additional complaints, except as documented Aller/Immun Reports system reviewed and no additional complaints, except as documented Exam Const General: cooperative, healthy appearing, no acute distress, well developed and well groomed Nutritional Appearance: well nourished and overweight Orientation: alert, awake and oriented x3 [facility] Head: normal to inspection, normocephalic, atraumatic and no scalp tenderness Ears: hearing grossly normal bilaterally, external ears normal, TM's normal bilaterally, EAC's normal and no periauricular adenopathy General nose exam: external nose normal, nares normal, no nasal polyps, septum normal and no nasal discharge Face and sinus: normal facial exam and sinuses nontender Mouth: oral mucosae normal, lip normal, tongue normal, oropharynx normal and moist mucous membranes Throat: posterior oropharynx normal Eyes General: appearance normal, both eyes and all related structures Periorbital: periorbital findings normal Eyelids: eyelids normal Conjunctivae: conjunctivae normal Sclera: sclerae normal Pupils: PERRL EOM: EOM intact bilaterally Direct ophthalmoscopy: normal light reflex Neck Neck: normal visual inspection, full ROM, no lymphadenopathy, supple and no JVD present Neck mass: No Thyroid: thyroid normal Carotids: normal carotid upstroke Resp Effort Inspection: normal respiratory effort Auscultation: clear to auscultation bilaterally Percussion: percussion normal Cardio Jugular venous pressure: no JVD Palpation: normal PMI Rate: regular rate Rhythm: regular rhythm Heart Sounds: S1 normal and S2 normal Pulses: normal peripheral pulses GI Inspection: Yes scar (from appendectomy) Palpation: soft Auscultation: normal bowel sounds General: deferred Musc Cervical Spine: normal cervical lordosis Thoracic/Lumbar Spine: thoracic and lumbar spine normal to inspection Skin Lesions: no lesions Rashes: no rashes Trauma: no lacerations or abrasions Wounds: no wounds Neuro General: patient alert, patient awake, patient oriented x3, gait normal, moves all extremities and normal light touch, pain and propioception Cranial Nerves: CN's II-XII intact bilaterally Cognition: normal cognition Speech: speech normal Gait: normal gait Motor: muscle tone normal throughout and strength 5/5 throughout Sensory Exam: no sensory deficits noted Extrem General: normal to inspection, full ROM, capillary refill normal, no clubbing, cyanosis or edema andno muscle atrophy Psych Appearance: grossly normal and well kempt Mental Status: mental status grossly normal Speech and Movement: speech and movement normal Affect: normal affect Attitude: cooperative Thought Process: normal Thought Content: normal Insight: insight good Judgment: judgment good Assessment Plan Assessment Plan (1) Pre-Operative Examination: Code(s): Z01.818 - Encounter for other preprocedural examination Plan - Yeni Dc DO: reviewed ekg with patient reviewed cxr with patient (stable left lung nodule) reviewed labs with patient (elevated lft ) Repeat abnormal lft has improved compared to yesterday. Patient is sufficiently medical stable for left breast lumpectomy with general anesthesia. She willhold aspirin 7 days prior to surgery. Orders Other Orders: Orders: HGBA1C + EAG Today E11.9 HEPATIC PANEL (LFT's - lab) Today R94.5 Follow Up: 1 (test results) Coding Level of Care Code 10978 Est Pt Extended Comp Exam Detailed Diagnoses Pre-Operative Examination Z01.818 <Electronically signed by Yeni Dc DO> 04/20/20 1310 Name Value Range Interpretation Code Description Data Roxana rce(s) Supporting Document(s) ID Date Data Source [id number] 04/20/2020 01:27:00 PM EST [facility] @ [facility] DATE was changed from 04/20/20 to 04/19/20@ by HEREL. Old specimen was [id number].TEST ADDED TO BLOOD DRAWN 04/19/20-[facility] Name Value Range Interpretation Code Description Data Roxana rce(s) Supporting Document(s) Hemoglobin A1c [Mass/volume] in Blood 6.0 % 3.8-5.6 Above hig h normal [facility] The following ranges may be u sed for interpretation of results: HGBA1C degree of glucose control: Greater than 8%: Action Suggested * Less than 7%: Goal of Diabetic Therapy Less than 5.6%: NormalFactors such as duration of diabetes, adherence to therapyand the age of the patient should also be considered inassessing the degree of blood glucose control.* High risk of developing watermaster complications such asretinopathy, nephropathy, neuropathy, cardiopathy, etc. Some danger of hypoglycemic reaction in Type I diabetics.Some glucose intolerant individuals and "Sub Clinical"diabetics may demonstrate HGBA1C levels in this area. Glucose mean value [Moles/volume] in Blood Estimated f rom glycated hemoglobin 126 mg/dL [facility] l An A1C of 7% - the goal of diabetic ther apy - is equivalentto an EAG of 154 mg/dl. ID Date Data Source [id number] 04/19/2020 09:40:00 AM EST [facility] Name Value Range Interpretation Code Description Data Roxana rce(s) Supporting Document(s) Leukocytes [#/volume] in Blood by Automated count 6.0 10*3/uL 4.45-10 .71 N [facility] Erythrocytes [#/volume] in Blood by Automated count 4.23 10*6/uL 4.20 -5.40 N [facility] Hemoglobin [Moles/volume] in Blood 12.0 g/dL 10.7-15.4 N [facility] Hematocrit [Volume Fraction] of Blood by Automated count 38.3 % 3 7-47 N [facility] Erythrocyte mean corpuscular volume [Ent itic volume] in Cord blood by Automated count 90.5 fL 80-96 N [facility] Erythrocyte mean corpuscular hemoglobin [Entitic mass] by Automated count 28.4 pg 27-31 N [facility] Erythrocyte mean corpuscular hemoglobin concentration [Mass/volume] in Cord blood 31.3 g/dL 33-37 Below low normal [facility] Erythrocyte distribution width [Entitic volume] by Automated count 13 % 11-15 N [facility] Platelets [#/volume] in Blood by Automated count 260 10*3/uL 130-472 N [facility] Platelet mean volume [Entitic volume] in Blood 10.3 fL 9.1-13.1 N [facility] Neutrophils/100 leukocytes in Blood by Automated count 45.8 % 41- 77 N [facility] Neutrophils [#/volume] in Blood by Automated count 2.8 U 1.7-7.6 N [facility] Lymphocytes/100 leukocytes in Blood by Automated count 41.6 % 14- 46 N [facility] Lymphocytes [#/volume] in Blood by Automated count 2.5 U 0.6-4.6 N [facility] Monocytes/100 leukocytes in Blood by Automated count 7.8 % 4-12 N [facility] Monocytes [#/volume] in Blood by Automated count 0.5 U 0.2-1.2 N [facility] Eosinophils/100 leukocytes in Blood by Automated count 3.6 % 0-7 N [facility] Eosinophils [#/volume] in Blood by Automated count 0.2 U 0.0-0.5 N [facility] Basophils/100 leukocytes in Blood by Automated count 1.0 % 0.4-1 .3 N [facility] Basophils [#/volume] in Blood by Automated count 0.1 U 0.0-0.2 N [facility] NUCLEATED RED BLOOD CELL 0 % [facility] NUCLEATED RED BLOOD CELL# 0 U [facility] Immature granulocytes [Presence] in Blood by Automated count 0-2 N [facility] Immature granulocytes [#/volume] in Blood by Automated count 0.0 U 0-0.1 N [facility] Manual Differential panel - Blood NO [facility] ID Date Data Source [id number] 04/19/2020 10:28:00 AM EST [facility] Name Value Range Interpretation Code Description Data Roxana rce(s) Supporting Document(s) Urea nitrogen [Mass/volume] in Serum or Plasma 15 mg/dL 9-23 N [facility] Sodium [Moles/volume] in Serum or Plasma 140 mmol/L 132-146 N [facility] Potassium [Moles/volume] in Serum or Plasma 4.7 mmol/L 3.5-5.5 [facility] Chloride [Moles/volume] in Serum or Plasma 106 mmol/L 99-109 [facility] Carbon dioxide, total [Moles/volume] in Serum or Plasma 29 mmol/L 20 -31 [facility] Anion gap in Serum or Plasma 10 mmol/L 8-16 [facility] Glucose [Mass/volume] in Serum or Plasma 109 mg/dL 74-106 Above high normal [facility] Creatinine 0.8 mg/dL 0.5-1.1 [facility] Glomerular filtration rate/1.73 sq M.pre dicted [Volume Rate/Area] in Serum or Plasma Greater Than 60 ABOVE 60 [facility] Alanine aminotransferase [Enzymatic acti vity/volume] in Serum or Plasma by With P-5'-P 144 U/L 10-49 Above high normal [facility] Aspartate aminotransferase [Enzymatic ac tivity/volume] in Serum or Plasma by With P-5'-P 74 U/L 0-33 Above high normal [facility] Alkaline phosphatase [Enzymatic activity/volume] in Serum or Plasma 115 U/L 45-129 N [facility] Calcium [Mass/volume] in Serum or Plasma 9.8 mg/dL 8.5-10.1 N [facility] Bilirubin.total [Mass/volume] in Serum or Plasma 0.4 mg/dL 0.3-1.2 [facility] Albumin [Mass/volume] in Serum or Plasma by Bromocresol purple (BCP) dye binding method 3.6 g/dL 3.2-4.8 [facility] Protein [Mass/volume] in Serum or Plasma 7.6 g/dL 5.7-8.2 [facility] ID Date Data Source [id number] 04/19/2020 08:12:00 AM EST [facility] [address], [place] [id number] [phone] NAME SEX PT STATUS ACCOUNT NUMBER ELIN RUANO F REG REF [id number] ORDERING PHYSICIAN LOCATION MEDICAL RECORD NO. Yeni Dc DO EKG [id number] ATTENDING PHYSICIAN DATE OF DATE OF EXAM/TIME Anuja Lopez JIRA ADMINISTRATOR 1950 04/19/20806 TYPE / EXAM Xray Chest 2 view PA/LAT REASON FOR EXAM pre op testing ELIN RUANO [id number] 1950 ADDENDUM Please note that in the body of the report, a nodule measuring approximately 8.3 mm is seen at the left lung base. It remains stable. Addendum Reported By Larry Ritchie MD on 04/20/20 1148 Signed By Larry Ritchie MD on 04/20/20 1149 Trans Dt/Tm: Trans by: MARK [p pg] COMPARISON: Abdomen and pelvis CT dated May 01, 2018 FINDINGS: The cardiac and mediastinal silhouettes appear normal and the lungs are grossly clear. However, at approximately 8.3 cm nodule seen towards the left lung base is a stable finding compared to prior CTscan dated April 2018. The bones and soft tissues are normal. The upper abdomen is unremarkable. IMPRESSION: No acute cardiopulmonary disease. Stable pulmonary nodule towards the left lung base. Reported By Larry Ritchie MD on 04/19/20811 Signed By Larry Ritchie MD on 04/19/20812 Date Time CC: Larry Ritchie MD; Anuja KANG John Techn: RADTC Trans Dt/Tm: Trans by: DT Prt Dt/Tm: 9737-7101: Total DLP = 0.00 mGy-cm Fluoroscopy Time (in secs): Name Value Range Interpretation Code Description Data Roxana rce(s) Supporting Document(s) ID Date Data Source [id number] 03/31/2020 05:53:00 PM [facility] Surgical Pathology ReportName: Bev RUANO HERNANDEZSIVA GillisAndriaMRN: [id number] Number: [id number] Date: 03/30/2020 00:00Received Date: 03/30/2020 10:30Physician(s): CHARY PARK MD HAGHIR, SHAHANDEH F[facility] [place]) ReceivedA: Material received for consultation, [facility], [id number] HistoryPlease do ER, [place], HER2, reflex to HER2 FISH. Metastatic carcinoma toaxilla, consistent with breast primary (tumor cells positive for GATA3 peroutside pathology report).DiagnosisIMMUNOHISTOCHEMISTRY, LEFT AXILLARY NODULE, BIOPSY ([id number], part A;03/24/20): ESTROGEN RECEPTORS: Positive (moderate intensity in 100% of tumor cells).PROGESTERONE RECEPTORS: Positive (moderate to strong intensity in 80% oftumor cells).HER2: Negative (1+).Electronically Signed By Tamir Goldstein MD;, Attending Pathologist03/31/2020 17:53:54 Unless 'gross-only' is specified, the final diagnosis is based on amicroscopic examination of technical services representative sections of tissue.Gross DescriptionReceived from [facility] in [place], [place], is one paraffinblock, labeled [id number], with the corresponding pathology report. This report may include one or more immunohistochemical stain results thatuse analyte specific reagents. All positive and negative controls havebeen reviewed by the attending pathologist and are satisfactory. The testswere developed and their performance characteristics determined by [facility] Pathology department. They have not been cleared or approved by the USFood and Drug Administration. The FDA has determined that such clearanceor approval is not necessary. Name Value Range Interpretation Code Description Data Roxana rce(s) Supporting Document(s) ID Date Data Source Basic Metabolic Profile (BMP) 03/18/2020 12:00:00 AM EST eCW 1 ([facility]) Name Value Range Interpretation Code Description Data Roxana rce(s) Supporting Document(s) 100 70-100 GLUCOSE, FASTING eCW1 ([facility]) 137 136-145 SODIUM LEVEL eCW1 ([facility]) 0.88 0.55-1.30 CREATININE FOR GFR eCW1 ([facility]) > 60.0 >39 GLOMERULAR FILTRATION RATE eCW 1 ([facility]) 38 7-18 BLOOD UREA NITROGEN eCW1 ([facility]) 29 21-32 CARBON DIOXIDE LEVEL eCW1 ([facility]) 9.4 8.8-10.2 CALCIUM LEVEL eCW1 ([facility]) 4.4 3.5-5.1 POTASSIUM SERUM eCW1 ([facility]) 104 98-107 CHLORIDE LEVEL eCW1 ([facility]) ID Date Data Source [id number] 02/25/2020 02:00:00 PM EST [facility] Patient Name: ELIN RUANO : 1950 Sex: F Pt Unit #: [id number] Location:[facility] Provider: Visit Date/Time: 02/25/20 Primary Insurance: MEDICARE [employer] Secondary Insurance: [facility] Intake Intake Visit Reasons: Test result Nurse Note: pt is here today to discuss biopsy results Is patient in pain?: No Allergies No Known Drug Allergies Allergy (Verified 08/08/18 15:04) Fall Risk History of falls: No Ambulatory Aid:: None Gait/Transferring:: Normal Medications:: No High Risk Medications HIV Testing Offer - ages 13-64 Requirement for HIV testing offer been met?: Not in age range Coronavirus Screening Screening Have you traveled outside of [facility] or [facility] in the last 14 days.: No Has patient experienced coronavirus symptoms: No PFSH Medical History (Updated 02/25/20 @ 14:55 by Anuja Lopez NP) Hypovitaminosis D Menopause menses @ 12,menopause @ 44,2 pregnancies w/2 live births Migraine Surgical History (Updated 08/27/18 @ 11:55 by VoAPPs DC) Appendectomy ( 2019) History of hysterectomy Family History Father Disorder of vision Diabetes Stroke Carcinoma of prostate Blind in both eyes Social History Does the Patient have a Healthcare Proxy: No Does Patient have a DNR?: No Does Patient have a Living Will?: No Hx Recent Travel (where): No Smoking Status: Never smoker HPI Additional HPI HPI Details: HERE TO DISCUSS BREAST BIOPSY RESULTS. 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 Review of Systems Const All systems reviewed are unremarkable except as noted in HPI and below Reports system reviewed and no additional complaints, except as documented Eyes Reports system reviewed and no additional complaints, except as documented ENT Reports system reviewed and no additional complaints, except as documented Card Reports system reviewed and no additional complaints, except as documented Resp Reports system reviewed and no additional complaints, except as documented GI Reports system reviewed and no additional complaints, except as documented Genitourinary: Reports system reviewed and no additional complaints, except as documented Musc Reports system reviewed and no additional complaints, except as documented Neuro Reports system reviewed and no additional complaints, except as documented Psych Reports system reviewed and no additional complaints, except as documented and Reports anxiety Details: R/T BREAST CANCER DIAGNOSIS Endo Reports system reviewed and no additional complaints, except as documented Denzel/Lymph Reports system reviewed and no additional complaints, except as documented Aller/Immun Reports system reviewed and no additional complaints, except as documented Exam Const General: cooperative Orientation: alert and oriented x3 Psych Appearance: grossly normal and well kempt Mental Status: mental status grossly normal Speech and Movement: speech and movement normal Affect: normal affect Attitude: cooperative Thought Process: normal Thought Content: normal Insight: insight good Judgment: judgment good Other: DISCUSSED PATHOLOGY REPORT WITH PATIENT AND . POSITIVE FOR BREAST CANCER. WOULD LIKE TO SEE [facility]. REFERRAL WILL BE SENT. Assessment Plan Assessment Plan (1) Encounter to discuss test results: Code(s): Z71.2 - Person consulting for explanation of examination or test fin dings (2) Breast cancer: Status: Acute Code(s): C50.919 - Malignant neoplasm of unspecified site of unspecified female breast SNOMED Code(s): 563522997 Category: Medical Qualifiers: Breast location: unspecified site of breast Estrogen receptor status: positive Patient sex: female Laterality: left Qualified Code(s): C50.912 - Malignant neoplasm of unspecified site of left female breast; Z17.0 - Estrogen receptor positive status [ER+] Plan - Anuja Lopez NP: WILL REFER TO [facility]. KEEP SCHEDULED APPT. Coding [place] [address] Est Pt Extended Comp Patient Type Established History Expanded Problem Focused Exam Expanded Problem Focused Medical Decision Making Moderate Complexity Diagnoses Encounter to discuss test results Z71.2 Breast cancer C50.912; Z17.0 Breast location: unspecified site of breast Estrogen receptor status: positive Patient sex: female Laterality: left <Electronically signed by Anuja Lopez NP> 02/25/20 5311 Name Value Range Interpretation Code Description Data Roxana rce(s) Supporting Document(s) ID Date Data Source [id number] 02/18/2020 03:59:00 PM EST [facility] [address] [place] [address] [phone] NAME SEX PT STATUS ACCOUNT NUMBER ELIN RUANO REG REF [id number] ORDERING PHYSICIAN LOCATION MEDICAL RECORD NO. Anuja INTERACTIVE ART DIRECTOR John [id number] ATTENDING PHYSICIAN DATE OF DATE OF EXAM/TIME Anuja Lopez NP 1950 02/18/20 / 0 TYPE / EXAM US BREAST BIOPSY W/ GUID ADDL REASON FOR EXAM LT BREAST BIOPSY X2 COMPARISON: COMPARISON: None FINDINGS: 2 breast masses in the left breast one superficial at approximately 10-11 o'clock was scanned. There is a second mass that is deeper and slightly more laterally that was also biopsied at the sametime. Written, informed consent obtained. All questions answered. No guarantees given. The patient understood and agreed to proceed. Following sterile prep and drape, local anesthesia given with 1% lidocaine. A small skin incision was made. Using ultrasound guidance, 4/5 core biopsies of the first mass were obtained with a 12-gauge biopsy instrument. The specimens were takento Pathology. Following sterile prep and drape, local anesthesia given with 1% lidocaine. A small skin incision was made. Using ultrasound guidance, 4/5 core biopsies of the second mass mass were obtained with [id number] biopsy instrument. The specimens were taken to Pathology. Using ultrasound guidance, a biopsy clip was placed at both sites.. The patient tolerated the procedure well, without immediate complications. IMPRESSION: ultrasound guided biopsy to adjacent breast mass, and placement of a biopsy clip. Pathology reportsare pending. Reported By Lucille Santo MD on 02/18/20 155 Signed By Lucille Santo MD on 03/15/20 1535 Date Time CC: Anuja KANG John; Lucille Santo MD Techn: BUSMI Trans Dt/Tm: Trans by: DT Prt Dt/Tm: 3164-1461: Total DLP = 0.00 mGy-cm 5893-7961: Total Radiation Dose = 0.0000 mSv Lifetime Dose: 0 mSv Name Value Range Interpretation Code Description Data Roxana rce(s) Supporting Document(s) ID Date Data Source [id number] 02/18/2020 03:59:00 PM [facility] [address] [facility] [place] [address] [phone] NAME SEX PT STATUS ACCOUNT NUMBER ELIN RUANO REG REF [id number] ORDERING PHYSICIAN LOCATION MEDICAL RECORD NO. Anuja Lopez [id number] ATTENDING PHYSICIAN DATE OF DATE OF EXAM/TIME Anuja Lopez NP 1950 02/18/20 / 0 TYPE / EXAM US BREAST BIOPSY W/ GUIDANCE REASON FOR EXAM left breast COMPARISON: COMPARISON: None FINDINGS: 2 breast masses in the left breast one superficial at approximately 10-11 o'clock was scanned. There is a second mass that is deeper and slightly more laterally that was also biopsied at the sametime. Written, informed consent obtained. All questions answered. No guarantees given. The patient understood and agreed to proceed. Following sterile prep and drape, local anesthesia given with 1% lidocaine. A small skin incision was made. Using ultrasound guidance, 4/5 core biopsies of the first mass were obtained with a 12-gauge biopsy instrument. The specimens were takento Pathology. F ollowing sterile prep and drape, local anesthesia given with 1% lidocaine. A small skin incision was made. Using ultrasound guidance, 4/5 core biopsies of the second mass mass were obtained with [id number] biopsy instrument. The specimens were taken to Pathology. Using ultrasound guidance, a biopsy clip was placed at both sites.. The patient tolerated the procedure well, without immediate complications. IMPRESSION: ultrasound guided biopsy to adjacent breast mass, and placement of a biopsy clip. Pathology reportsare pending. Reported By Lucille Santo MD on 02/18/20 1558 Signed By Lucille Santo MD on 03/15/20 1535 Date Time CC: Anuja KANG John; Lucille Santo MD Techn: BUSMI Trans Dt/Tm: Trans by: DT Prt Dt/Tm: [id number]: Total DLP = 0.00 mGy-cm 8957-5159: Total Radiation Dose = 0.0000 mSv Lifetime Dose: 0 mSv Name Value Range Interpretation Code Description Data Roxana rce(s) Supporting Document(s) ID Date Data Source [id number] 02/18/2020 03:59:00 PM EST [facility] [address] [place] [address] [phone] NAME SEX PT STATUS ACCOUNT NUMBER ELIN RUANO REG REF [id number] ORDERING PHYSICIAN LOCATION MEDICAL RECORD NO. Anuja Lopez [id number] ATTENDING PHYSICIAN DATE OF DATE OF EXAM/TIME Anuja Lopez NP 1950 02/18/20 / 1112 TYPE / EXAM DIG MAMMO DIAG LT 2D ONLY REASON FOR EXAM CLIP PLACEMENT COMPARISON: COMPARISON: None FINDINGS: 2 breast masses in the left breast one superficial at approximately 10-11 o'clock was scanned. There is a second mass that is deeper and slightly more laterally that was also biopsied at the sametime. Written, informed consent obtained. All questions answered. No guarantees given. The patient understood and agreed to proceed. Following sterile prep and drape, local anesthesia given with 1% lidocaine. A small skin incision was made. Using ultrasound guidance, 4/5 core biopsies of the first mass were obtained with a 12-gauge biopsy instrument. The specimens were takento Pathology. F ollowing sterile prep and drape, local anesthesia given with 1% lidocaine. A small skin incision was made. Using ultrasound guidance, 4/5 core biopsies of the second mass mass were obtained with [id number] biopsy instrument. The specimens were taken to Pathology. Using ultrasound guidance, a biopsy clip was placed at both sites.. The patient tolerated the procedure well, without immediate complications. IMPRESSION: ultrasound guided biopsy to adjacent breast mass, and placement of a biopsy clip. Pathology reportsare pending. Reported By Lucille Santo MD on 02/18/20 8759 Signed By Lucille Santo MD on 03/15/20 1535 Date Time CC: Anuja Lopez; Lucille Santo MD Techn: SUMIT Trans Dt/Tm: Trans by: DT Prt Dt/Tm: [id number]: Total DLP = 0.00 mGy-cm 0739-5324: Total Radiation Dose = 0.0000 mSv Lifetime Dose: 0 mSv Name Value Range Interpretation Code Description Data Roxana rce(s) Supporting Document(s) ID Date Data Source [id number] 02/25/2020 09:50:00 AM EST [facility] PATH SPEC #:: [id number] Name Value Range Interpretation Code Description Data Roxana rce(s) Supporting Document(s) Pathology studies (set) See scanned report [facility] ID Date Data Source [id number] 02/13/2020 03:55:00 PM EST [facility] [address] [place] [address] [phone] NAME SEX PT STATUS ACCOUNT NUMBER ELIN RUANO REG REF [id number] ORDERING PHYSICIAN LOCATION MEDICAL RECORD NO. Anuja INTERACTIVE ART DIRECTOR John MAMMO [id number] ATTENDING PHYSICIAN DATE OF DATE OF EXAM/TIME JohnAnuja NP 1950 02/12/201544 TYPE / EXAM 3D DIG [...] views of the breasts were obtained. The breasts are primarily of fat density. There is an 8 mm mass seen in the medial aspect of the left breast in the palpable region indicatedby the patient. There is an additional 8mm [...] cortical thickness of 4 mm. This area willbe rescanned and considered for biopsy as well at the time [...] on 02/13/20 1630 Date Time CC: Anuja KANG John; Lucille Santo MD Techn: PELBU Trans Dt/Tm: Trans by: DT Prt Dt/Tm: [id number]: Total DLP = 0.00 mGy-cm 1580-8403: Total Radiation Dose = 0.0000 mSv Lifetime Dose: 0 mSv Name Value Range Interpretation Code Description Data Roxana rce(s) Supporting Document(s) ID Date Data Source [id number] 02/13/2020 09:27:00 AM EST [facility] [address] [place] [id number] [phone] NAME SEX PT STATUS ACCOUNT NUMBER ELIN RUANO REG REF [id number] ORDERING PHYSICIAN LOCATION MEDICAL RECORD NO. Anuja Lopez MAMMO [id number] ATTENDING PHYSICIAN DATE OF DATE OF EXAM/TIME Anuja Lopez CARSON 1950 02/12/20833 TYPE / EXAM US Breast - Limited Unilat REASON FOR EXAM LEFT BREAST LUMP COMPARISON: None Multiple images of the left breast at the 8:00 location were obtained, encompassing the area of clinical concern. FINDINGS: There are 2 solid masses identified ON seen at 8:00 just beneath the skin measuring approx imately 7.3 x 7.8 x 0.8 by 6.1 [...] Anuja KANG John; Lucille Santo MD Techn: BUSMI Trans Dt/Tm: Trans by: DT Prt Dt/Tm: [id number]: Total DLP = 0.00 mGy-cm 0036-8979: Total Radiation Dose = 0.0000 mSv Lifetime Dose: 0 mSv Name Value Range Interpretation Code Description Data Roxana rce(s) Supporting Document(s) ID Date Data Source [id number] 01/21/2020 08:36:00 AM EST [facility] Name Value Range Interpretation Code Description Data Roxana rce(s) Supporting Document(s) Leukocytes [#/volume] in Blood by Automated count 6.4 10*3/uL 4.45-10 .71 N [facility] Erythrocytes [#/volume] in Blood by Automated count 4.41 10*6/uL 4.20 -5.40 [facility] Hemoglobin [Moles/volume] in Blood 12.7 g/dL 10.7-15.4 N [facility] Hematocrit [Volume Fraction] of Blood by Automated count 40.9 % 3 7-47 N [facility] Erythrocyte mean corpuscular volume [Ent itic volume] in Cord blood by Automated count 92.7 fL 80-96 N [facility] Erythrocyte mean corpuscular hemoglobin [Entitic mass] by Automated count 28.8 pg 27-31 N [facility] l Erythrocyte mean corpuscular hemoglobin concentration [Mass/volume] in Cord blood 31.1 g/dL 33-37 Below low normal [facility] Erythrocyte distribution width [Entitic volume] by Automated count 14 % 11-15 N [facility] Platelets [#/volume] in Blood by Automated count 260 10*3/uL 130-472 N [facility] Platelet mean volume [Entitic volume] in Blood 9.7 fL 9.1-13.1 N [facility] Neutrophils/100 leukocytes in Blood by Automated count 50.9 % 41- 77 N [facility] Neutrophils [#/volume] in Blood by Automated count 3.3 U 1.7-7.6 N [facility] Lymphocytes/100 leukocytes in Blood by Automated count 38.8 % 14- 46 N [facility] Lymphocytes [#/volume] in Blood by Automated count 2.5 U 0.6-4.6 N [facility] Monocytes/100 leukocytes in Blood by Automated count 6.1 % 4-12 N [facility] Monocytes [#/volume] in Blood by Automated count 0.4 U 0.2-1.2 N [facility] Eosinophils/100 leukocytes in Blood by Automated count 3.0 % 0-7 N [facility] Eosinophils [#/volume] in Blood by Automated count 0.2 U 0.0-0.5 N [facility] Basophils/100 leukocytes in Blood by Automated count 0.9 % 0.4-1 .3 N [facility] Basophils [#/volume] in Blood by Automated count 0.1 U 0.0-0.2 N [facility] NUCLEATED RED BLOOD CELL 0 % [facility] NUCLEATED RED BLOOD CELL# 0 U [facility] Immature granulocytes [Presence] in Blood by Automated count 0-2 N [facility] Immature granulocytes [#/volume] in Blood by Automated count 0.0 U 0-0.1 N [facility] Manual Differential panel - Blood NO [facility] ID Date Data Source [id number] 01/21/2020 09:39:00 AM EST [facility] Name Value Range Interpretation Code Description Data Roxana rce(s) Supporting Document(s) Urea nitrogen [Mass/volume] in Serum or Plasma 18 mg/dL 9-23 N [facility] Sodium [Moles/volume] in Serum or Plasma 140 mmol/L 132-146 N [facility] Potassium [Moles/volume] in Serum or Plasma 4.6 mmol/L 3.5-5.5 N [facility] Chloride [Moles/volume] in Serum or Plasma 105 mmol/L 99-109 N [facility] Carbon dioxide, total [Moles/volume] in Serum or Plasma 30 mmol/L 20 -31 N [facility] Anion gap in Serum or Plasma 10 mmol/L 8-16 N [facility] Glucose [Mass/volume] in Serum or Plasma 104 mg/dL 74-106 N [facility] Creatinine 0.8 mg/dL 0.5-1.1 [facility] Glomerular filtration rate/1.73 sq M.pre dicted [Volume Rate/Area] in Serum or Plasma Greater Than 60 ABOVE 60 [facility] Alanine aminotransferase [Enzymatic acti vity/volume] in Serum or Plasma by With P-5'-P 14 U/L 10-49 N [facility] Aspartate aminotransferase [Enzymatic ac tivity/volume] in Serum or Plasma by With P-5'-P 17 U/L 0-33 N [facility] pital Alkaline phosphatase [Enzymatic activity/volume] in Serum or Plasma 62 U/L 45-129 N [facility] Calcium [Mass/volume] in Serum or Plasma 9.1 mg/dL 8.5-10.1 [facility] Bilirubin.total [Mass/volume] in Serum or Plasma 0.3 mg/dL 0.3-1.2 [facility] Albumin [Mass/volume] in Serum or Plasma by Bromocresol purple (BCP) dye binding method 3.3 g/dL 3.2-4.8 [facility] ital Protein [Mass/volume] in Serum or Plasma 7.1 g/dL 5.7-8.2 [facility] ID Date Data Source [id number] 01/21/2020 09:39:00 AM [facility] Name Value Range Interpretation Code Description Data Roxana rce(s) Supporting Document(s) Triglycerides 255 mg/dL 0-150 Above high normal [facility] Cholesterol 247 mg/dL 120-200 Above high normal [facility] HDL Cholesterol 63 mg/dL [facility] HDL Less than 40 mg/dL: Major risk for CHDHDL Greater than 59 mg/dL: Low risk for CHD LDL Cholesterol, Calc 133 mg/dL 0-100 Above high normal [facility] ID Date Data Source [id number] 2020 09:20:00 AM [facility] Patient Name: Elin Ruano : 1950 Sex: F Pt Unit #: [id number] Location:[facility] Provider: Visit Date/Time: 01/07/20 Primary Insurance: MEDICARE [employer] Secondary Insurance: [facility] Intake Vital Signs 01/07/20 09:20 Current Height 5 ft 1 in Current Weight 148 lb 0.8 oz Weight Measurement Method Standing Scale BMI 27.9 BP 120/60 Blood Pressure Location Lt brachial Position Sitting Respiration 18 Pulse 68 Pulse Strength Normal Pulse Source Pulse Oximeter Pulse Oximetry (%) 98 Oxygen Delivery Method room air Intake Visit Reasons: Encounter to Establish Care Nurse Note: PT IS HERE TODAY A NEW PT SHE LAST SAW DR HOLLAND Is patient in pain?: No Allergies No Known Drug Allergies Allergy (Verified 08/08/18 15:04) Medications as pirin (Aspirin Low-Strength) 81 mg PO DAILY conjugated estrogens (Premarin) 0.625 mg PO DAILY propranolol ER 120 mg PO DAILY Fall Risk History of falls: No Ambulatory Aid:: None Gait/Transferring:: Normal Medications:: No High Risk Medications PHQ-2/9 Over the last 2 weeks, how often have you been bothered by any of the following problems? 1. Little interest or pleasure in doing things: not at all 2. Feeling down, depressed, or hopeless: not at all Total score: 0 HIV Testing Offer - ages 13-64 Requirement for HIV testing offer been met?: Not in age range Hep C Testing Offered: No Hep C Requirement met: Patient reports past refusal Coronavirus Screening Screening Have you traveled outside of [facility] or [facility] in the last 14 days.: No Has patient experienced coronavirus symptoms: No PFSH Medical History (Updated 01/07/20 @ 09:27 by Anuja Lopez NP) Hypovitaminosis D Menopause menses @ 12,menopause @ 44,2 pregnancies w/2 live births Migraine Surgical History (Updated 08/27/18 @ 11:55 by VoAPPs DC) Appendectomy ( 2019) History of hysterectomy Family History Father Disorder of vision Diabetes Stroke Carcinoma of prostate Blind in both eyes Social History Does the Patient have a Healthcare Proxy: No Epps s Patient have a DNR?: No Does Patient have a Living Will?: No Hx Recent Travel (where): No Smoking Status: Never smoker HPI Additional HPI HPI Details: RECHECK. NEEDS MED REFILLS. MIGRAINES CONTROLLED WITH PROPRANOLOL. FEELS WELL Review of Systems Const All systems reviewed are unremarkable except as noted in HPI and below Reports system reviewed and no additional complaints, except as documented Eyes Reports system reviewed and no additional complaints, except as documented ENT Reports system reviewed and no additional complaints, except as documented Card Reports system reviewed and no additional complaints, except as documented Resp Reports system reviewed and no additional complaints, except as documented GI Reports system reviewed and no additional complaints, except as documented Genitourinary: Reports system reviewed and no additional complaints, except as documented Musc Reports system reviewed and no additional complaints, except as documented Skin/Breast Reports system reviewed and no additional complaints, except as documented Neuro Reports system reviewed and no additional complaints, except as documented Psych Reports system reviewed and no additional complaints, except as documented Endo Reports system reviewed and no additional complaints, except as documented Denzel/Lymph Reports system reviewed and no additional complaints, except as documented Aller/Immun Reports system reviewed and no additional complaints, except as documented Exam Const General: cooperative, healthy appearing, no acute distress, well developed and well groomed Nutritional Appearance: well nourished Orientation: alert, awake and oriented x3 HENMT Head: normal to inspection and normocephalic Ears: hearing grossly normal bilaterally, external ears normal, TM's normal bilaterally and EAC's normal General nose exam: external nose normal, nares normal and no nasal discharge Face and sinus: normal facial exam Mouth: oral mucosae normal Throat: posterior oropharynx normal Eyes General: appearance normal, both eyes and all related structures Periorbital: periorbital findings normal Eyelids: eyelids normal Conjunctivae: conjunctivae normal Sclera: sclerae normal Pupils: PERRL EOM: EOM intact bilaterally Direct ophthalmoscopy: normal light reflex Neck Neck: normal visual inspection and full ROM Neck mass: No Thyroid: thyroid normal Carotids: normal carotid upstroke Lymphatic: no lymphadenopathy noted Resp Effort Inspection: normal respiratory effort Auscultation: clear to auscultation bilaterally Percussion: percussion normal Cardio Jugular venous pressure: no JVD Rate: regular rate Rhythm: regular rhythm Heart Sounds: S1 normal and S2 normal Pulses: normal peripheral pulses GI Inspection: Yes normal to inspection Palpation: soft Percussion: normal to percussion Auscultation: normal bowel sounds General: No CVA tenderness Musc Cervical Spine: normal cervical lordosis and cervical ROM normal Thoracic/Lumbar Spine: thoracic and lumbar spine normal to inspection and thoraco-lumbar ROM normal Skin Lesions: no lesions Rashes: no rashes Hair: normal Nails: normal Neuro General: patient alert, patient awake, patient oriented x3, gait normal and moves all extremities Cranial Nerves: CN's II-XII intact bilaterally Cognition: normal cognition Speech: speech normal Gait: normal gait Motor: muscle tone normal throughout and strength 5/5 throughout Sensory Exam: no sensory deficits noted Extrem General: normal to inspection and full ROM Psych Appearance: grossly normal and well kempt Mental Status: mental status grossly normal Speech and Movement: speech and movement normal Affect: normal affect Attitude: cooperative Thought Process: normal Thought Content: normal Insight: insight good Judgment: judgment good Assessment Plan Assessment Plan (1) Encounter to establish care with new doctor: Code(s): Z76.89 - Persons encountering health services in other specified circumstances (2) Migraine: Status: Acute Code(s): G43.909 - Migraine, unspecified, not intractable, without status migrainosus SNOMED Code(s): 74297916 C ategory: Medical Qualifiers: Migraine type: unspecified Status migrainosus presence: without status migrainosus Intractability: not intractable Qualified Code(s): G43.909 - Migraine, unspecified, not intractable, without status migrainosus Plan - Anuja Lopez JIRA ADMINISTRATOR: DUE FOR FLU SHOT, PNEUMONIA SHOT, SHINGRIX WANTS TO THINK ABOUT IT. IS IN HOSPITAL. DOESN'T WANT TO DO THEM TODAY. RTC MAY 2020 Medications: Refilled: propranolol ER 120 mg PO DAILY 90 caps 3RF propranolol ER 120 mg PO DAILY 90 caps 3RF Orders Other Medications: Refil led: conjugated estrogens (Premarin) 0.625 mg PO DAILY 90 tabs 3RF Other Orders: Orders: CMP Today Z09 LIPID PANEL 3 Months E78.5 CBC W AUTO DIFF Today Z09 <Electronically signed by Anuja Lopez NP> 01/07/20 0950 Name Value Range Interpretation Code Description Data Roxana rce(s) Supporting Document(s) ID Date Data Source [id number] 05/27/2019 09:03:00 AM EDT [facility] Patient Name: Elin Ruano Carlin Rubio OB: 1950 Sex: F Pt Unit #: [id number] [facility] Provider: Visit Date/Time: 05/27/19 Primary Insurance: MEDICARE [employer] Secondary Insurance: [facility] Intake Vital Signs 05/27/19 09:07 Current Height 5 ft 1 in Current Weight 151 lb 2 oz Weight Measurement Method Standing Scale BMI 28.5 BP 102/64 Blood Pressure Location Lt brachial Position Sitting Respiration 18 Pulse 82 Pulse Strength Normal Pulse Source Pulse Oximeter Temp 98 F Temp Source Oral Pulse Oximetry (%) 98 Oxygen Delivery Method room air Intake-Medicare Annual Visit Reasons: Medicare Annual Wellness Follow Up Nurse Note: Pt is here today for a medicare wellness check. Pt offers no concerns today. Interpr eter Required: No Is patient in pain?: No Allergies No Known Drug Allergies Allergy (Verified 08/08/18 15:04) Feel stressed/tense/nervous/anxious/difficulty sleeping: not at all Medications aspirin (Aspirin Low-Strength) 81 mg PO DAILY conjugated estrogens (Premarin) 0.625 mg PO DAILY propranolol ER 120 mg PO DAILY Post menopausal: Yes Fall Risk History of falls: No Ambulatory Aid:: None Gait/Transferring:: Normal Medications:: No High Risk Medications How often do you have a drink containing alcohol?: never AUDIT-C Alcohol total score: Answ all for result. AUDIT-C result reviewed/action taken: No HIV testing Offer: No Requirement for HIV testing offer been met?: Not in age range Hep C Testing Offered: No Hep C Requirement met: Refuses today PFSH Social History Does the Patient have a Healthcare Proxy: No Does Patient have a DNR?: No Does Patient have a Living Will?: No Hx Recent Travel (where): No Medicare Annual Wellness Type Of Examation Type of Exam: Subsequent Wellness Exam EKG EKG Performed: No Medication list Medications aspirin (Aspirin Low-Strength) 81 mg PO DAILY conjugated estrogens (Premarin) 0.625 mg PO DAILY propranolol ER 120 mg PO DAILY Allergies Allergies No Known Drug Allergies Allergy (Verified 08/08/18 15:04) Current Diet Current diet: regular PHQ-2/9 Over the last 2 weeks, how often have you been bothered by any of the following problems? 1. Little interest or pleasure in doing things: not at all 2. Feeling down, depressed, or hopeless: not at all Total score: 0 Vision [place] VA Far - right eye: NA VA Far - left eye: NA VA Far - bilateral eyes: NA VA Near - right eye: NA VA Near - left eye: NA VA near - bilateral eye: NA Functional Assessment Bathing: Independent Dressing: Independent Toileting: Independent Transferring: Independent Continence: Independent Feeding: Independent Total Score: 6 Home Safety Home Safety: Reports Lighting: Adequate, [place]: No throw rugs and Stairs: Handrail available; DeniesBathroom: Grab bars Hearing Hearing Left Ear: Normal Hearing Right Ear: Normal Hearing test method: whispered voice IADL Assessment Functional abilities: Up Go test, pt steady, Up Go test, within 30 sec, Pt independent w/phone,Pt independent w/transportation, Pt independent w/shopping, Pt independent w/housework, Pt independent w/meal preparation, Pt independent w/laundry, Pt independent w/medication and Pt independent w/finances Cognitive Evaluation Oriented to the date:: Yes Oriented to time:: Yes Oriented to place:: Yes Mood: grossly normal Affect: Normal Judgement: normal Needs caregiver for a ssistance: No Clock drawing: Yes Clock drawing with correct time: Yes 3 item recall: 3 Next Visit Return to Office:: 12 months for next MAWV. HPI Additional HPI HPI Details: Doing well. No changes in her health since last visit. Menopausal symptoms and migraines are under good control with current regimen. Sees eye doctor every couple years and due to see them soon. She will have them send us a report. Review of Systems Const Denies fatigue and Denies malaise Card Denies chest pain and Denies dyspnea Resp Denies dyspnea GI Denies change in stool character, Denies constipation and Denies diarrhea Denies difficulty voiding and Denies dysuria Endo Denies fatigue Exam Const General: cooperative and healthy appearing Resp Effort Inspection: normal respiratory effort Auscultation: clear to auscultation bilaterally, no rales, no rhonchi and no wheezes Cardio Rate: regular rate Rhythm: regular rhythm Heart Sounds: S1 normal, S2 normal, no gallops, no murmurs and no rubs Psych Appearance: grossly normal Affect: normal affect Attitude: cooperative Assessment Plan Assessment Plan (1) Medicare annual wellness visit, subsequent: Code(s): Z00.00 - Encounter for general adult medical examination without abnormal findings Plan - Jeff Holland MD: Doing well. Continue current plan and recheck 12 months for next annual wellness visit. Electronically Signed By: <Electronically signed by Jeff Holland MD> Date/Time Signed: 05/27/19 1044 Name Value Range Interpretation Code Description Data Roxana rce(s) Supporting Document(s) Procedure Social History Code Duration Value Status Description Data Source(s ) 04/20/2020 09:01:21 AM EST Never smoker completed Never s [facility] Smoking 04/20/2020 09:01:00 AM EST Never smoker completed Never s [facility] 04/15/2020 10:25:00 AM EST No completed No [facility] 04/15/2020 10:25:00 AM EST No completed No [facility] Smoking 03/29/2020 12:00:00 AM EST Never Smoker completed Never S moker eCW1 ([facility]) Smoking 03/29/2020 12:00:00 AM EST Never Smoker completed Never S moker eCW1 ([facility]) Smoking 03/29/2020 12:00:00 AM EST Never Smoker completed Never S moker eCW1 ([facility]) Smoking 03/29/2020 12:00:00 AM EST Never Smoker completed Never S moker eCW1 ([facility]) Smoking 03/29/2020 12:00:00 AM EST Never Smoker completed Never S moker eCW1 ([facility]) Smoking 12/22/2019 12:08:00 PM EDT Never smoker completed Never s [facility] Smoking 12/22/2019 12:08:00 PM EDT Never smoker completed Never s [facility] 12/22/2019 11:08:00 AM EDT Never smoker completed Never s [facility] 12/22/2019 11:08:00 AM EDT Never smoker completed Never s [facility] Vital Signs ID Date Data Source UNK Name Value Range Interpretation Code Description Data Source(s) Diastolic blood pressure 84 mm[Hg] 84 mm[Hg] eCW1 ([facility]) Systolic blood pressure 148 mm[Hg] 148 mm[Hg] e CW1 ([facility]) Body temperature 97.8 [degF] 97.8 [degF] eCW1 ( [facility]) Respiratory rate 18 /min 18 /min eCW1 ([facility]) Heart rate 72 /min 72 /min eCW1 ([facility]) Body mass index (BMI) [Ratio] 27.07 kg/m2 27.07 kg/m2 eCW1 ([facility]) Body height 62 [in_i] 62 [in_i] eCW1 ([facility]) Body weight 67.13 kg 67.13 kg eCW1 ([facility]) Body weight 148 [lb_av] 148 [lb_av] eCW1 ([facility]) Diastolic blood pressure 82 mm[Hg] 82 mm[Hg] eCW1 ([facility]) Systolic blood pressure 140 mm[Hg] 140 mm[Hg] e CW1 ([facility]) Body temperature 97.4 [degF] 97.4 [degF] eCW1 ( [facility]) Respiratory rate 18 /min 18 /min eCW1 ([facility]) Heart rate 75 /min 75 /min eCW1 ([facility]) Body mass index (BMI) [Ratio] 27.08 kg/m2 27.08 kg/m2 eCW1 ([facility]) Body height 62 [in_i] 62 [in_i] eCW1 ([facility]) Body weight 67.18 kg 67.18 kg eCW1 ([facility]) Body weight 148.1 [lb_av] 148.1 [lb_av] eCW1 ([facility])
--- OUTSIDE RECORDS SUMMARY | 2020-04-28 10:53 | CCD ---
Author Author [facility] Organization [facility] Address Unknown Phone Unavailable Care Team Providers Care Standard Machine Stitcher Name Role Phone Dominiqueromeo Jacqueline Unavailable PROBLEMS Type Condition ICD9-CM Code [id number] Code Onset Dates Condition S tatus W/U Status Risk SNOMED Code Notes Problem Malignant neoplasm of unspecified site of left female breast C50.912 Active confirmed 339992586 ALLERGIES No Known Allergies ENCOUNTERS from 1950 to 2020-04-10 Encounter Location Date Provider Diagnosis [address] [phone] Apr, Jacqueline Brown IMMUNIZATIONS No Information SOCIAL HISTORY Tobacco Use: Social History Observation Description Date Details (start date - stop date) Never Smoker Sex Assigned At : Social History Observation Description Sex Assigned At Unknown Alcohol Screening: Question Answer Notes Did you have a drink containing alcohol in the past year? No Points 0 Interpretation Negative Tobacco Use: Question Answer Notes Are you a: never smoker REASON FOR REFERRAL No Information VITAL SIGNS No information MEDICATIONS Medication SIG (Take, Route, Frequency, Duration) Notes Start Da te End Date Status Baby Aspirin Not-Taking Aleve 220 MG 1 tablet with food or milk as needed Orally every 12 hrs Not-Taking Aspirin 81 81 MG 1 tablet Orally Once a day Not-Taking Inderal LA 120 MG 1 capsule Orally Once a day Active Premarin 0.625 MG 1 tablet Orally Once a day Not-Taking Lidocaine-Prilocaine 2.5-2.5 % apply to left nipple an d surrounding breast 2 hours prior to coming in for surgery. Cover with plastic Externally once for 1 day Mar, Active PROCEDURES No Information RESULTS No Results REASON FOR VISIT discussion with [facility]EdOnc and Tumor board presentation MEDICAL (GENERAL) HISTORY Type Description Date Medical History hysterectomy Medical History BRCA Medical History appendectomy Medical History tubal ligation Medical History fibroids Medical History Migraines Surgical History hysterectomy Surgical History tubal ligation Surgical History appendectomy Surgical History L LN Biopsy 03/24/2020 Hospitalization History For above surgeries Goals Section No Information Health Concerns No Information MEDICAL EQUIPMENT No Information MENTAL STATUS No Information FUNCTIONAL STATUS No Information ASSESSMENTS No Information PLAN OF TREATMENT No Information Insurance Providers Payer Name Payer Address Payer Phone Insured Name Patient Relati onship to Insured Coverage Start Date Coverage End Date MEDICARE Part A and B [address] [facility] [id number] Elin Ruano FOR LIFE [address] [facility] [address] As Elin barrientos
--- OUTSIDE RECORDS SUMMARY | 2020-04-28 10:53 | CCD ---
Author Author [facility] Organization [facility] [facility] Address Unknown Phone Unavailable Care Team Providers Care Realty Loan Specialist Name Role Phone Dominiqueromeo Jacqueline Unavailable PROBLEMS Type Condition ICD9-CM Code [id number] Code Onset Dates Condition S tatus W/U Status Risk SNOMED Code Notes Problem Malignant neoplasm of unspecified site of left female breast C50.912 Active confirmed [id number] ALLERGIES No Known Allergies ENCOUNTERS from 1950 to 2020-04-08 Encounter Location Date Provider Diagnosis [facility] [address] [place] [address] Apr, Jacqueline Brown IMMUNIZATIONS No Information SOCIAL [...] Information RESULTS No Results REASON FOR VISIT question about appt with walker MEDICAL (GENERAL) HISTORY Type Description Date Medical [...] MEDICARE Part A and B [address] [facility] [phone] Elin Ruano FOR LIFE [address] [facility] [address] As Elin barrientos
--- OUTSIDE RECORDS SUMMARY | 2020-04-28 10:53 | CCD | Continuity of Care Document ---
Author Author [facility] Address [address] [place] [address] Phone Support Name Relationship Address Phone Jeff Flowers PRS [address] [place] [address] Doctor Provided, Family No PRS Unknown Unava ilable Anuja Lopez PRS [address] [place] [address] Vanda Sea PRS [address] [place] [address] Allergies, Adverse Reactions, Alerts No known allergies. [...] 9:23am Conjugated Estrogens (Premarin) 0.625 mg tablet Discontinued 0.625 MG PO Once Per Day 2020 9:23am April 20, 2020 8:48am Propranolol Discontinued 120 MG PO Once Per [...] Active Problems Medical Problem Onset Date Status Abnormal LFTs (liver function tests) Active Migraine Active Breast cancer Active Postmenopausal disorder Active Pre-op testing Active Nodule of left lung Ac tive Inactive/Resolved Problems Medical Problem Onset Date Status Acute appendicitis Res olved Acute appendicitis with rupture Resolved Procedures Procedure Date Performed Status Xray Chest 2 view PA/LAT April 192020 8:07am completed DIG MAMMO DIAG LT 2D ONLY February 022019 11:12am completed US BREAST BIOPSY W/ GUIDANCE Decembe r 2019 11:10am completed US BREAST BIOPSY W/ GUID ADDL Decemb er 2019 11:10am completed US Breast - Limited Unilat February 12, 2020 8:34am completed 3D DIG MAMMO DIAG YOSSI February 12, 2020 3:45pm completed Relevant Diagnostic Tests and/or Laboratory Data Laboratory Results Test Date/Time Result Interpretation Reference Range Result Comment Performing Site White Blood Count April 19 8:21am 6.0 10e3/uL 4.45-10.71 [facility], [address] [place] [address] 60100 White Blood Count January 20 8:15am 6.4 10e3/uL 4.45-10.71 [facility], [address] [place] [address] 15892 Red Blood Count April 19, 2020 8:21am 4.23 10e6/uL 4.20-5.40 [facility], [address] [place] [address] 27034 Red Blood Count January 21, 2020 8:15am 4.41 10e6/uL 4.20-5.40 [facility], [address] [place] [address] 81774 Hemoglobin April 19, 2020 8:21am 12.0 g/dL 10.7-15.4 [facility], [address] [place] [address] 43155 Hemoglobin January 21, 2020 8:15am 12.7 g/dL 10.7-15.4 [facility], [address] [place] [address] 62835 Hematocrit April 19, 2020 8:21am 38.3 % 37-47 [facility], [address] [place] [address] 22112 Hematocrit January 21, 2020 8:15am 40.9 % 37-47 [facility], [address] [place] [address] 06452 Mean Corpuscular Volume April 8:21am 90.5 fl 80-96 [facility], [address] [place] [address] 05587 Mean Corpuscular Volume January 8:15am 92.7 fl 80-96 [facility], [address] [place] [address] 64667 Mean Corpuscular Hemoglobin April 19, 2020 8:21am 28.4 pg 27-31 [facility], [address] [place] [address] 52920 Mean Corpuscular Hemoglobin January 21, 2020 8:15am 28.8 pg 27-31 [facility], [address] [place] [address] 32240 Mean Corpuscular Hemoglobin Concent April 19, 2020 8:21am 31.3 g/dl 33-37 [facility], [address] [place] [address] 48173 Mean Corpuscular Hemoglobin Concent January 21, 2020 8:15am 31.1 g/dl 33-37 [facility], [address] [place] [address] 23232 Red Cell Distribution Width April 19, 2020 8:21am 13 % 11-15 [facility], [address] [place] [address] 57085 Red Cell Distribution Width January 21, 2020 8:15am 14 % 11-15 [facility], [address] [place] [address] 90944 Platelet Count April 19, 2020 8:21am 260 10e3/ul 130-472 [facility], [address] [place] [address] 73077 Platelet Count January 21, 2020 8:15am 260 10e3/ul 130-472 [facility], [address] [place] [address] 47884 Mean Platelet Volume April 19, 2020 8:21am 10.3 fl 9.1-13.1 [facility], [address] [place] [address] 65774 Mean Platelet Volume January 21, 2020 8:15am 9.7 fl 9.1-13.1 [facility], [address] [place] [address] 63259 Neutrophils (%) (Auto) April 8:21am 45.8 % [address] [facility], [address] [place] [address] 15878 Neutrophils (%) (Auto) January 8:15am 50.9 % [address] [facility], [address] [place] [address] 74478 Absolute Neutrophil April 19, 2 021 8:21am 2.8 # 1.7-7.6 [facility], [address] [place] [address] 16362 Absolute Neutrophil January 20, 2 020 8:15am 3.3 # 1.7-7.6 [facility], [address] [place] [address] 59448 Lymphocytes (%) (Auto) April 8:21am 41.6 % 14-46 [facility], [address] [place] [address] 33444 Lymphocytes (%) (Auto) January 8:15am 38.8 % 14-46 [facility], [address] [place] [address] 25083 Lymphocytes # (Auto) April 19, 2020 8:21am 2.5 # 0.6-4.6 [facility], [address] [place] [address] 33215 Lymphocytes # (Auto) January 21, 2020 8:15am 2.5 # 0.6-4.6 [facility], [address] [place] [address] 52149 Monocytes (%) (Auto) April 19, 2020 8:21am 7.8 % 4-12 [facility], [address] [place] [address] 26723 Monocytes (%) (Auto) January 21, 2020 8:15am 6.1 % 4-12 [facility], [address] [place] [address] 72909 Monocytes # April 19, 2020 8:21am 0.5 # 0.2-1.2 [facility], [address] [place] [address] 79407 Monocytes # January 21, 2020 8:15am 0.4 # 0.2-1.2 [facility], [address] [place] [address] 99114 Eosinophils (%) (Auto) April 8:21am 3.6 % 0-7 [facility], [address] [place] [address] 10598 Eosinophils (%) (Auto) January 8:15am 3.0 % 0-7 [facility], [address] [place] [address] 25438 Absolute Eosinophils (CBC) April 19, 2020 8:21am 0.2 # 0.0-0.5 [facility], [address] [place] [address] 40784 Absolute Eosinophils (CBC) January 21, 2020 8:15am 0.2 # 0.0-0.5 [facility], [address] [place] [address] 97058 Basophils (%) (Auto) April 19, 2020 8:21am 1.0 % 0.4-1.3 [facility], [address] [place] [address] 14569 Basophils (%) (Auto) January 21, 2020 8:15am 0.9 % 0.4-1.3 [facility], [address] [place] [address] 50519 Absolute Basophils (CBC) April 192020 8:21am 0.1 # 0.0-0.2 [facility], [address] [place] [address] 14467 Absolute Basophils (CBC) January 202019 8:15am 0.1 # 0.0-0.2 [facility], [address] [place] [address] 85165 Immature Granulocyte % (Auto) Februa ry 2020 8:21am 0.2 % 0-2 [facility], [address] [place] [address] 87375 Immature Granulocyte % (Auto) Novemb er 2019 8:15am 0.3 % 0-2 [facility], [address] [place] [address] 59651 Absolute Immature Granulocyte (auto April 19, 2020 8:21am 0.0 # 0-0.1 [facility], [address] [place] [address] 00969 Absolute Immature Granulocyte (auto January 21, 2020 8:15am 0.0 # 0-0.1 [facility], [address] [place] [address] 14072 Add Manual Differential April 8:21am No [facility], [address] [place] [address] 24664 Add Manual Differential January 8:15am No [facility], [address] [place] [address] 06198 Blood Urea Nitrogen April 19, 2 021 8:21am 15 mg/dL 11-25 [facility], [address] [place] [address] Blood Urea Nitrogen January 20, 2 020 8:15am 18 mg/dL 11-25 [facility], [address] [place] [address] 57771 Sodium Level April 19, 2020 8:21am 140 mmol/L 132-146 [facility], [address] [place] [address] 36326 Sodium Level January 21, 2020 8:15am 140 mmol/L 132-146 [facility], [address] [place] [address] 09342 Potassium Level April 19, 2020 8:21am 4.7 mmol/L 3.5-5.5 [facility], [address] [place] [address] 63147 Potassium Level January 21, 2020 8:15am 4.6 mmol/L 3.5-5.5 [facility], [address] [place] [address] 45985 Chloride Level April 19, 2020 8:21am 106 mmol/l 99-109 [facility], [address] [place] [address] 94137 Chloride Level January 21, 2020 8:15am 105 mmol/l 99-109 [facility], [address] [place] [address] 59183 Carbon Dioxide Level April 19, 2020 8:21am 29 mmol/l -31 [facility], [address] [place] [address] 99569 Carbon Dioxide Level January 21, 2020 8:15am 30 mmol/l -31 [facility], [address] [place] [address] 91120 Anion Gap April 19, 2020 8:21am 10 mmol/l -16 [facility], [address] [place] [address] 51648 Anion Gap January 21, 2020 8:15am 10 mmol/l 8-16 [facility], [address] [place] [address] 60767 Glucose Level April 19, 2020 8:21am 109 mg/dL 74-106 [facility], [address] [place] [address] 89073 Glucose Level January 21, 2020 8:15am 104 mg/dL 74-106 [facility], [address] [place] [address] 64212 Creatinine April 19, 2020 8:21am 0.8 mg/dL 0.5-1.1 [facility], [address] [place] [address] 49134 Creatinine January 21, 2020 8:15am 0.8 mg/dL 0.5-1.1 [facility], [address] [place] [address] 84627 Glomerular Filtration Rate Calc Febr uary 2020 8:21am Greater than 60 ml/min ABOVE 60 [facility], [address] [place] [address] 89756 Glomerular Filtration Rate Calc Nove mber 2019 8:15am Greater than 60 ml/min ABOVE 60 [facility], [address] [place] [address] Alanine Aminotransferase (ALT/SGPT) April 19, 2020 8:21am 144 U/L -49 [facility], [address] [place] [address] Alanine Aminotransferase (ALT/SGPT) January 21, 2020 8:15am 14 U/L 49 [facility], [address] [place] [address] Aspartate Amino Transf (AST/SGOT) [facility] 2020 8:21am 74 U/L 0-33 [facility], [address] [place] [address] 96587 Aspartate Amino Transf (AST/SGOT) [facility] 8:[facility]am 17 U/L 0-33 [facility], [address] [place] [address] 54423 Alkaline Phosphatase April 19, 2020 8:21am 115 U/L 45-129 [facility], [address] [place] [address] Alkaline Phosphatase January 21, 2020 8:15am 62 U/L 45-129 [facility], [address] [place] [address] 33999 Calcium Level April 19, 2020 8:21am 9.8 mg/dL 8.5-10.1 [facility], [address] [place] [address] Calcium Level January 21, 2020 8:15am 9.1 mg/dL 8.5-10.1 [facility], [address] [place] [address] 36410 Total Bilirubin April 19, 2020 8:21am 0.4 mg/dL 0.3-1.2 [facility], [address] [place] [address] 60738 Total Bilirubin January 21, 2020 8:15am 0.3 mg/dL 0.3-1.2 [facility], [address] [place] [address] 90342 Albumin April 19, 2020 8:21am 3.6 g/dL 3.2-4.8 [facility], [address] [place] [address] 78681 Albumin January 21, 2020 8:15am 3.3 g/dL 3.2-4.8 [facility], [address] [place] [address] 01417 Serum Total Protein April 19 021 8:21am 7.6 g/dL 5.7-8.2 [facility], [address] [place] [address] Serum Total Protein January 20 020 8:15am 7.1 g/dL 5.7-8.2 [facility], [address] [place] [address] 16162 Triglycerides Level January 20 8:15am 255 mg/dL 0-150 [facility], [address] [place] [address] Cholesterol Level November 18th, 202 0 8:15am 247 mg/dL 120-200 [facility], [address] [place] [address] 39921 HDL Cholesterol January 21, 2020 8:15am 63 mg/dL HDL Less than 40 mg/dL: Major risk for CHDHDL Greater than 59 mg/dL: Low risk for CHD [facility], [address] [place] [address] 29813 LDL Cholesterol, Calculated January 21, 2020 8:15am 133 mg/dL 0-100 [facility], [address] [place] [address] 68257 Surgical Pathology Specimen February 18, 2020 11:11am See scanned report [facility], [address] [facility] [address] Diagnostic Imaging Reports Report Dictated Date/Time Dictated By Status Radiology Report February 13, 2020 9:27a m Lucille Santo MD completed [place] [id number] [place] [address] [phone] NAME SEX PT STATUS ACCOUNT NUMBER JORGE RUANO REG REF [id number] ORDERING PHYSICIAN LOCATION MEDICAL RECORD NO. Anuja DECONTAMINATION TECHNICIAN John MAMMO [id number] ATTENDING PHYSICIAN DATE OF DATE OF EXAM/TIME JohnAnuja MANDARIN TEACHER 1950 02[birth year]20833 TYPE / EXAM US Breast [...] Dt/Tm: : Total DLP = 0.00 mGy-cm 0588-6173: Total Radiation Dose = 0.0000 mSv Lifetime Dose: 0 mSv Radiology Report February 13, 2020 3:55p m Lucille Santo MD completed [facility] [address] [place] [address] [phone] NAME SEX PT STATUS ACCOUNT NUMBER JORGE RUANO REG REF [id number] ORDERING PHYSICIAN LOCATION MEDICAL RECORD NO. Anuja KANG John MAMMO [id number] ATTENDING PHYSICIAN DATE OF DATE OF EXAM/TIME Anuja Lopez MANDARIN TEACHER 1950 02[birth year]12/201544 TYPE / EXAM 3D DIG [...] Trans Dt/Tm: Trans by: DT Prt Dt/Tm: [id number]: Total DLP = 0.00 mGy-cm 2417-6971: Total Radiation Dose = 0.0000 mSv Lifetime Dose: 0 mSv Radiology Report February 18, 2020 3:59p m Lucille Santo MD completed [place] [id number] [phone] NAME SEX PT STATUS ACCOUNT NUMBER JORGE RUANO REG REF [id number] ORDERING PHYSICIAN LOCATION MEDICAL RECORD NO. Anuja Lopez [id number] ATTENDING PHYSICIAN DATE OF DATE OF EXAM/TIME Anuja Lopez NP 1950 02/18/20 / 1111 TYPE / EXAM DIG MAMMO DIAG LT 2D ONLY REASON FOR EXAM CLIP PLACEMENT COMPARISON: COMPARISON: None FINDINGS: 2 breast masses in the left breast one superficial at approximately 10-11 o'clock was scanned. There is a second mass that is deeper and slightly more laterally that was also biopsied at the same time. Written, informed consent obtained. All questions answered. No guarantees given. The patient understood and agreed to proceed. Following sterile prep and drape, local anesthesia given with 1% lidocaine. A small skin incision was made. Using ultrasound guidance, 4/5 core biopsies of the first mass were obtained with a 12-gauge biopsy instrument. The specimen s were taken to Pathology. Following sterile prep and drape, local anesthesia given with 1% lidocaine. A small skin incision was made. Using ultrasound guidance, 4/5 core biopsies of the second mass mass were obtained with a 12-gauge biopsy instrument. The specimens were taken to Pathology. Using ultrasound guidance, a biopsy clip was placed at both sites.. The patient tolerated the procedure well, without immediate complications. IMPRESSION: ultrasound guided biopsy to adjacent breast mass, and placement of a biopsy clip. Pathology reports are pending. Reported By Lucille Santo MD on 02/18/20 5733 Signed By Lucille Santo MD on 03/15/20 1535 Date Time CC: Anuja Lopez; Lucille Santo MD Techn: BAKLE Trans Dt/Tm: Trans by: DT Prt Dt/Tm: [id number]: Total DLP = 0.00 mGy-cm 3613-1558: Total Radiation Dose = 0.0000 mSv Lifetime Dose: 0 mSv Radiology Report February 18, 2020 3:59p m Lucille Santo MD completed [place] [id number] [place] [id number] [phone] NAME SEX PT STATUS ACCOUNT NUMBER JORGE RUANO REG REF [id number] ORDERING PHYSICIAN LOCATION MEDICAL RECORD NO. Anuja Lopez [id number] ATTENDING PHYSICIAN DATE OF DATE OF EXAM/TIME Anuja Lopez NP 1950 02/18/201109 TYPE / EXAM US BREAST BIOPSY W/ GUIDANCE REASON FOR EXAM left breast COMPARISON: COMPARISON: None FINDINGS: 2 breast masses in the left breast one superficial at approximately 10-11 o'clock was scanned. There is a second mass that is deeper and slightly more laterally that was also biopsied at the same time. Written, informed consent obtained. All questions answered. No guarantees given. The patient understood and agreed to proceed. Following sterile prep and drape, local anesthesia given with 1% lidocaine. A small skin incision was made. Using ultrasound guidance, 4/5 core biopsies of the first mass were obtained with a 12-gauge biopsy instrument. The specimen s were taken to Pathology. Following sterile prep and drape, local anesthesia given with 1% lidocaine. A small skin incision was made. Using ultrasound guidance, 4/5 core biopsies of the second mass mass were obtained with a 12-gauge biopsy instrument. The specimens were taken to Pathology. Using ultrasound guidance, a biopsy clip was placed at both sites.. The patient tolerated the procedure well, without immediate complications. IMPRESSION: ultrasound guided biopsy to adjacent breast mass, and placement of a biopsy clip. Pathology reports are pending. Reported By Lucille Santo MD on 02/18/20 1551 Signed By Lucille Santo MD on 03/15/20 153 Date Time CC: Anuja KANG John; Lucille Santo MD Techn: BUSMI Trans Dt/Tm: Trans by: DT Prt Dt/Tm: [id number]: Total DLP = 0.00 mGy-cm 0990-4014: Total Radiation Dose = 0.0000 mSv Lifetime Dose: 0 mSv Radiology Report February 18, 2020 3:59p glenna Santo MD completed [facility] [address] [place] [address] [phone] NAME SEX PT STATUS ACCOUNT NUMBER JORGE RUANO REG REF [id number] ORDERING PHYSICIAN LOCATION MEDICAL RECORD NO. Anuja Lopez [id number] ATTENDING PHYSICIAN DATE OF DATE OF EXAM/TIME JohnIbisAnuja NP 1949 02/18/20 / 1110 TYPE / EXAM US BREAST BIOPSY W/ GUID ADDL REASON FOR EXAM LT BREAST BIOPSY X2 COMPARISON: COMPARISON: None FINDINGS: 2 breast masses in the left breast one superficial at approximately 10-11 o'clock was scanned. There is a second mass that is deeper and slightly more laterally that was also biopsied at the same time. Written, informed consent obtained. All questions answered. No guarantees given. The patient understood and agreed to proceed. Following sterile prep and drape, local anesthesia given with 1% lidocaine. A small skin incision was made. Using ultrasound guidance, 4/5 core biopsies of the first mass were obtained with a 12-gauge biopsy instrument. The specimen s were taken to Pathology. Following sterile prep and drape, local anesthesia given with 1% lidocaine. A small skin incision was made. Using ultrasound guidance, 4/5 core biopsies of the second mass mass were obtained with a 12-gauge biopsy instrument. The specimens were taken to Pathology. Using ultrasound guidance, a biopsy clip was placed at both sites.. The patient tolerated the procedure well, without immediate complications. IMPRESSION: ultrasound guided biopsy to adjacent breast mass, and placement of a biopsy clip. Pathology reports are pending. Reported By Lucille Santo MD on 02/18/20 155 Signed By Lucille Santo MD on 03/15/20 1535 Date Time CC: Anuja KANG John; Lucille Santo MD Techn: BUSMI Trans Dt/Tm: Trans by: DT Prt Dt/Tm: [id number]: Total DLP = 0.00 mGy-cm 7311-5197: Total Radiation Dose = 0.0000 mSv Lifetime Dose: 0 mSv Health Concerns Health Concerns may be documented in an alternate section. Advance Directives Advance Directive Response Recorded Date/Time Advanced Directive No Fe [employer] [facility] [employer] 2020 10:25am MOLST on file in chart? No April 20, 2020 9:01am Advance Directives on File or in chart? No April 20, 2020 9:01am Does Patient have a DNR? No April 20, 2020 9:01am Healthcare Proxy Yes [facility] 2020 9:01am Living Will No April 20, 2020 9:01am Chief Complaint and Reason for Visit Chief Complaint Medicare Annual Well ness subsequent Encounter to Establish Care Z09,E78.5 LUMP LEFT BREAST BIOPSY X 2 Test result PREOP Z01.818,C50.912,Z17.0 Pre-operative H&P Reason for Visit Migraine Breast cancer Encounters Encounter Location(s) Ar rival/Admit Date Discharge/Depart Date Provider(s) Departed Physician/Provider Office Visit [facility] May 27, 2019 7:59am May 27, 2019 9:17am Jeff Flowers MD Departed Physician/Provider Office Visit [facility] 2020 9:09am 2020 10:08am Anuja Lopez Registered Referred [facility]Laboratory January 21, 2020 8:07am Anuja Lopez Registered Referred [facility]Mammography February 12, 2020 7:34am Anuja Lopez Registered Ref[facility]Ultrasound February 18, 2020 9:48am Anuja Lopez Departed Physician/Provider Office Visit [facility] February 25, 2020 1:56pm February 25, 2020 2:41pm Anuja Lopez Registered Referred [facility]EKG April 19, 2020 7:44am Sea Dc DO Departed Physician/Provider Office Visit [facility] April 20, 2020 8:35am April 20, 2020 9:28am Sea Dc DO Recent Diagnosis Onset Date Migraine Breast cancer Assessments Diagnosis Onset Date Res olution Status Migraine acute Breast cancer acute Family History Relationship Condition A ge at Onset Recorded Date/Time Not Specified Vision disorder Unknown Diabetes mellitus Unkn own Cerebrovascular accident (CVA) Unknown Carcinoma of prostate Unknown Blindness of both eyes Unknown Functional Status No Functional Status information available Goals Goals may be documented in an alternate section. Immunizations No Immunization Information Available Mental Status Observation Response Rigoberto e Recorded Impairments No impairments or barriers April 15, 2020 10:25am Medical Equipment No Medical Equipment Information available Insurance Providers Guarantor JORGE RUANO Address [address] [place] [address] Contact Info. Home Phone: Payer Policy Id Coverage Id Subscriber's Name Subscriber Id Effective Date Expiration Date MEDICARE [employer] [id number] Jorge Ruano [id number] 2014 [facility] [id number] Jorge Ruano [id number] 2014 [facility] [id number] Jorge Ruano [id number] MEDICARE [id number] Jorge Ruano [id number] Self Pay Self N/A [facility] [id number] Jorge Ruano [id number] Plan of Treatment reviewed ekg with patient reviewed cxr with patient (stable left lung nodule) reviewed labs with patient (elevated lft ) patient will need to repeat abnormal lft this week if repeat lft are stable , then patient is sufficiently medical stable for left breast lumpectomy WILL REFER TO [facility]. KEEP SCHEDULED APPT. DUE FOR FLU SHOT, PNEUMONIA SHOT, SHINGRIX [...] Status Status Date of Observation Never smoker April 20, 2020 9:0 1am Observation Status Date of Observation Not April 15, 2020 Observation Status Observation Response Rigoberto e of Response Smoking Status Never smoker April 20, 2020 9:01am Alcohol Use No April 15, 2020 10:25am Substance Use No uar 2020 10:25am Assigned Sex Female Vital Signs Vital Reading [...] (Body Mass Index) 27.9 kg/m2 2020 9:20am Height 61 [in_i] April 20, 2020 8:42am Weight 149.25 [lb_av] April 20, 2020 8:42am Body Temperature 98.1 [degF] 97.6-99.5 April 20, 2020 8:42am Heart Rate 75 /min 60-100 April 20, 2020 8:42am Respiratory rate 16 /min 12-April 20, 2020 8:42am Oxygen saturation by Pulse oximetry 97 % 95- 100 April 20, 2020 8:42am BP Systolic 130 mm[Hg] April 20, 2020 8:42am BP Diastolic 70 mm[Hg] April 20, 2020 8:42am BMI (Body Mass Index) 28.2 kg/m2 April 20, 2020 8:42am
--- OUTSIDE RECORDS SUMMARY | 2020-04-28 10:53 | CCD ---
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 [address] [place] [id number] Mar, Jacqueline Dominiqueromeo Malignant neoplasm of unspecified site o f left female breast C50.912 ; Estrogen receptor positive status [ER+] Z17.0 ; Palpable lymph node R59.9 ; History of hormone replacement therapy Z92.29 ; Family history of cancer Z80.9 ; Genetic testing Z13.79 and Aspirin long-term use Z79.82 IMMUNIZATIONS No Information SOCIAL HISTORY Tobacco Use: [...] REASON FOR REFERRAL No Information VITAL SIGNS Weight 148 lbs Mar, Weight-kg 67.13 kg Mar, Height 62 in Mar, BMI 27.07 kg/m2 Mar, Heart Rate 72 /min Mar, Respiratory Rate 18 /min Mar, Temperature 97.8 degrees Fahrenheit Mar, Oximetry 98 Mar, Blood pressure systolic 148 mm Hg Mar, Blood pressure diastolic 84 mm Hg Mar, MEDICATIONS Medication SIG (Take, Route, Frequency, Duration) [...] Information RESULTS No Results REASON FOR VISIT post L Ln bx MEDICAL (GENERAL) HISTORY Type Description Date Medical [...] No Information FUNCTIONAL STATUS No Information ASSESSMENTS Encounter Date Diagnosis Assessment Notes Treatment Notes Treatm ent Clinical Notes Mar, Malignant neoplasm of unspec ified site of left female breast (ICD- 10 - C50.912) MULTIFOCAL LEFT BREAST CANCER IDC GRADE 2 ER 75-80% & 80% IA 75-80% & 90% HER2 Negative x2 cT 1b (0.9 & 0.8) cN1(bx +) cM0 ANATOMOCAL STAGE 2A CLINICAL PROGNOSTIC STAGE : 1B PLAN: 1: MRI reviewed, 2 enlarged nodes with clips, no other suspicious lesions, pathology discussed 2. Urgent referral to [facility] to discuss Neoajuvant chemo vs Neoadjuvant antihormone tx to avoid ALND as this is morbid procedure, may need to present at tumor board 3. If neoadjuvant tx chosen, patient will need HYDROMARK clips placed at s 2 cancer sites as the lesions may melt away with tx 4. Will defer surgical procedure planning untill [facility] opinion is known (however the skin over the superficial lesion will need to be removed with the leson - appears stuck, patient has nonhydromark clips) 5. Preop testing/ medical clearance will need to be obtained prior to surgery 6. Genetic awaiting results 7. Oncotype DX postop if invasive cancer meets testing criteria and no NAC done 8. Referral to Radiation Oncology post surgery if indicated All questions were answered. Patient and her family agree with the plan. Mar, Estrogen receptor positive status [ER+] (ICD-10 - Z17.0) Mar, Palpable lymph node (ICD-10 - R59.9) s/p L axill bx of LN and Nodule on 03/24/[address] negative but pathology of nodule is + for malignancy. The nodule is consistent with a lymph node per pathology report. Mar, History of hormone replacement therapy (ICD-10 - Z92.29) Patient was on Premarin cream since 1995. She recently stopped this Premarin cream after being dx with breast cancer. Mar, Family history of cancer (ICD-10 - Z80.9) Patient has family history of cancer. She is eligible for genetic testing base on her personal history of breast cancer. Mar, Genetic testing (ICD-10 - Z13.79) pending Mar, Aspirin long-term use (ICD-10 - Z79.82) Aspirin will need to be held 7 days prior to surgery. PLAN OF TREATMENT Treatment Notes Assessment Notes Clinical Notes Malignant neoplasm of unspecified site of left female breast MULTIFOCAL LEFT BREAST CANCERIDC GRADE 2ER 75-80% & 80% IA 75-80% & 90% HER2 Negative x2cT 1b (0.9 & 0.8) cN1(bx +) [id number] STAGE 2ACLINICAL PROGNOSTIC STAGE : 1BPLAN:1: MRI reviewed, 2 enlarged nodes with clips, no other suspicious lesions, pathology discussed2. Urgent referral to [facility] to discuss Neoajuvant chemo vs Neoadjuvant antihormone tx to avoid ALND as this is morbid procedure, may need to present at tumor board3. If neoadjuvant tx chosen, patient will need HYDROMARK clips placed at s 2 cancer sites as the lesions may melt away with tx4. Will defer surgical procedure planning untill [facility] opinion is known (however the skin over the superficial lesion will need to be removed with the leson - appears stuck, patient has nonhydromark clips)5. Preop testing/ medical clearance will need to be obtained prior to surgery6. Genetic awaiting results7. Oncotype DX postop if invasive cancer meets testing criteria and no NAC done8. Referral to Radiation Oncology post surgery if indicatedAll questions were answered. Patient and her family agree with the plan. Palpable lymph node s/p L axill bx of LN and Nod ule on 03/24/20Pathology of Ln negative but pathology of nodule is + for malignancy. The nodule is consistent with a lymph node per pathology report. History of hormone replacement therapy Patient was on Premarin cream since 1995. She recently stopped this Premarin cream after being dx with breast cancer. Family history of cancer Patient has family history o f cancer. She is eligible for genetic testing base on her personal history of breast cancer. Genetic testing pending Aspirin long-term use Aspirin will need to be held 7 days pr ior to surgery. Next Appt Details Provider Name:Jacqueline Brown, 25-04-23 02:30:00 PM, [address] [place] [address], [phone], Provider Name:Jacqueline Brown, 23-05-00 01:00:00 PM, [address] [place] [address], [id number], Provider Name:Jacqueline Brown, 23-05-21 09:30:00 AM, [address] [place] [address], [id number], Insurance Providers Payer Name Payer Address Payer Phone Insured Name Patient Relati onship to Insured Coverage Start Date Coverage End Date MEDICARE Part A and B [address] [facility] [id number] [phone] Elin Ruano [employer] [address] [facility] [id number] As Elin barrientos
--- OUTSIDE RECORDS SUMMARY | 2020-04-28 10:53 | CCD ---
Author Author [facility] Organization [facility] Address Unknown Phone Unavailable Care Team Providers Care Tooling Manager Name Role Phone Jacqueline Brown Unavailable PROBLEMS Type Condition ICD9-CM Code [id number] Code Onset Dates Condition S tatus SNOMED Code Notes Problem Malignant neoplasm of unspecified site of left female breast C50.912 Active [id number] ALLERGIES No Known Allergies ENCOUNTERS from 1950 to 2020-03-30 Encounter Location Date Provider Diagnosis [facility] [address] [place] [id number] Mar, Jacqueline Dominiqueromeo Malignant neoplasm of unspecified [...] FOR REFERRAL No Information VITAL SIGNS Weight 148.1 lbs Mar, Weight-kg 67.18 kg Mar, Height 62 in Mar, BMI 27.08 kg/m2 Mar, Heart Rate 75 /min Mar, Respiratory Rate 18 /min Mar, Temperature 97.4 degrees Fahrenheit Mar, Oximetry 99 14 Mar, 2020 Blood pressure systolic 140 mm Hg Mar, Blood pressure diastolic 82 mm Hg Mar, MEDICATIONS Medication SIG (Take, [...] with plastic Externally once for 1 day Active Premarin 0.625 MG 1 tablet Orally Once a day Not-Taking Inderal LA 120 MG 1 capsule Orally Once a day Active PROCEDURES No Information RESULTS Component Value Reference Range Basic Metabolic Profile (BMP) Reviewed date:03/29/2020 17:37:55 Interpretation: Performing Lab:[facility], [facility] [id number] , ,[place] [address] GLUCOSE, FASTING 100 70-100 BLOOD UREA NITROGEN 38 7-18 CREATININE FOR GFR 0.88 0.55-1.30 GLOMERULAR FILTRATION RATE > 60.0 >39 SODIUM LEVEL 137 136-145 POTASSIUM SERUM 4.4 3.5-5.1 CHLORIDE LEVEL 104 98-107 CARBON DIOXIDE LEVEL 29 21-32 CALCIUM LEVEL 9.4 8.8-10.2 REASON FOR VISIT new cancer MEDICAL (GENERAL) HISTORY Type Description Date Medical [...] IDC GRADE 2 ER 75-80% & 80% AR 75-80% & 90% HER2 Negative x2 cT 1b (0.9 & 0.8) cN1-0? cM0 ANATOMOCAL STAGE 2A CLINICAL PROGNOSTIC STAGE : 1B PLAN: 1: Will obtain MRI breast to delineate extent of disease. BMP will be orders to assess kidney function 2. Will schedule pt for L axillary US guided Bx w clip placement, next week. Hold ASA/Celebrex 3. Will defer surgical procedure planning until MRI and bx results are available (however the skin over the superficial lesion will need to be removed with the leson - appears stuck, patient has nonhydromark clips as well- if NAC needed, the Hydromark clips will need to be placed prior.) 4. Preop testing/ medical clearance will need to be obtained prior to surgery 5. Genetic testing, will provide pt today 6. Oncotype DX postop if invasive cancer meets testing criteria and no NAC done 7. Referral to Medical Oncology post surgery 8. Referral to Radiation Oncology post surgery if indicated I reviewed the breast imaging with Ms. Ruano and her family. We have reviewed the overall breast cancer evaluation and staging. Based on the current information Ms. 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 The two foci of cancer measure 0.8 and 0.9 cm respectively. This puts her in the category T1b for each focus. She does have palpable nodes which may be reactive post previous biopsy, however the prebx US noted cortical thickening over 4 mm. The lymph nodes with thickened cortex should be biopsied. Patient is scheduled for US guided Left LN bx next week. She will hold her ASA and Celebrex prior. We are also awaiting result of MRI breast to further evaluate the breasts and lymph nodes. Depending if patient's lymph nodes are involved with cancer vs clear of cancer she will fall into N1-0 category. I have discussed various component of multidisciplinary approach to breast cancer which includes local treatments with surgery and radiation therapy and systemic treatments with antihormonal pill and possible chemotherapy. Regarding surgical component of the treatment, I explained to her that, surgery carries risks and potential complications, most common of which are risk of bleeding, infection and injury to surrounding structures like skin, nipple, muscle, lung, nerves especially long thoracic nerve and thoracodorsal nerve. Postsurgical complications may include, but are not limited to, numbness of the skin and or nipple, scarring, bruising, hematomas, seromas, flap and/or nipple necrosis, lymphedema, nerve injury causing weakness in motor function of upper extremity or scapula, contour deformity, poor cosmetic outcomes and need for additional surgeries. Those risks were explained to the patient and she expressed understanding. We have discussed that with breast conserving surgery there is a higher risk of locoregional recurrence of tumor because there is more rincon breast tissue left behind. The percentage of locoregional recurrence is lower with mastectomy than with breast conserving surgery but it is not zero as it is impossible to remove 100% of all breast tissue cells during mastectomy. There is also 10-20% chance of positive margins with breast conserving surgery which will warrant additional surgery to clear those margins. I also explained that with breast conserving surgery she may need to have radiation therapy in order to assure equal survival between the breast conservative treatment and mastectomy. Radiation therapy after mastectomy will be warranted only if the final mastectomy margins are positive or if lymph nodes are positive. We have also discussed that if she chooses mastectomy, she is entitled to reconstruction if she wishes to have it. Reconstruction options will be discussed in details with plastic surgeon. I have explained to the patient that reconstruction is considered part of breast cancer treatment and is covered by insurance. I explained that in cases of invasive cancer, we pursue sentinel lymph node biopsy in fit patients in addition to removal of the tumor from the breast. I explained that this is done to test the very first lymph nodes draining the breast for presence of cancer. This will be done with radionucleotide injection and possibly with blue dye tracer. If the lymph nodes contain cancer, depending on what surgery was performed and how many lymph nodes are positive, additional surgery and/ or radiation therapy to axilla may be warranted as well. I will send a prescription for the EMLA cream to be applied to the affected nipple in order to decrease discomfort of injections. Regarding evaluation of contralateral breast, she had a screening mammogram done in February 2020 and no abnormal findings were seen. She has MRI breast scheduled soon which will help evaluate the contralateral breast as well. Since patient was diagnosed with breast cancer, she qualifies for genetic testing. She was counseled about the genetic testing - see below- and wishes to proceed with the genetic testing. Kit was given today. I discussed with the patient and her family that Oncotype Dx is used to predict the probability of cancer coming back. I explained that if the test comes back with a high score, chemotherapy may be considered. We will plan on getting Oncotype Dx after surgery if cancer meets the criteria and no NAC was done prior to surgery. I will place referral for Medical Oncology. I explained to the patient that she may need to follow up with radiation oncology if she wants to pursue breast conserving surgery or if lymph nodes or mastectomy margins are positive. I will place this referral. She can schedule appointment with [facility] after surgery. Finally, I asked patient to schedule appointment with her primary care doctor as we will need a surgical clearance, latest labs and imaging (CBC, BMP, CXR,EKG). All questions were answered. Patient and her family agree with the plan. Mar, Estrogen receptor positive status [ER+] (ICD-10 - Z17.0) Mar, Palpable lymph node (ICD-10 - R59.9) Patient does have palpable lymph nodes in the left axilla. On the formal ultrasound of the left axilla prior to the biopsy lymph nodes with cortical thickness over 4 mm were noted as well. I will schedule patient for left axillary lymph node biopsy under ultrasound guidance with me next week. I asked patient to stop aspirin and Celebrex prior to procedure starting today. Mar, History of hormone replacement therapy (ICD-10 - Z92.29) Patient was on Premarin cream since 1995. She recently stopped this Premarin cream after being diagnosed with breast cancer. I recommend stopping permanently Premarin cream. Mar, Family history of cancer (ICD-10 - Z80.9) Patient has family history of cancer. She is eligible for genetic testing base on her personal history of breast cancer. Mar, Genetic testing (ICD-10 - Z13.79) Patient participated in our cancer screening program and she was identified as a person who may be eligible for genetic testing due to her family history. Possible outcomes of genetic testing were discussed with patient with emphasis on the fact that the majority of cancers are not related to germline mutations but are rather due to somatic mutations. I have explained that the genetic testing can come back as positive for specific pathological gene mutation, as negative, or as variant of unknown significance (VUS) which means that there is duration in the gene however we do not have enough information to determine the significance importance of this ulceration. I explained to the patient that we do not asked on VUS and treat them as negative until they are reclassified as pathologically significant mutation or benign alteration. We have discussed that regardless of test outcome patient cannot have her health insurance denied in the future. Patient is interested in proceeding with genetic testing. We will provide her with the blood kit today. We will update her about the results of genetic testing when the test is completed. Mar, Aspirin long-term use (ICD-10 - Z79.82) Aspirin and Celebrex will need to be held 7 days prior to lymph node biopsy and then 7 days prior to surgery. Mar, Other Time spent face to face with the patient with over 50 % of time spent counseling the patient : 90 min PLAN OF TREATMENT Medication Medication Name Sig Start Date Stop Date Lidocaine-Prilocaine 2.5-2.5 % apply to left nipple an d surrounding breast 2 hours prior to coming in for surgery. Cover with plastic Externally once for 1 day Treatment Notes Assessment Notes Clinical Notes Malignant neoplasm of unspecified site of left female breast MULTIFOCAL LEFT BREAST CANCERIDC GRADE 2ER 75-80% & 80% AR 75-80% & 90% HER2 Negative x2cT 1b (0.9 & 0.8) cN1-0? [id number] STAGE 2ACLINICAL PROGNOSTIC STAGE : 1BPLAN:1: Will obtain MRI breast to delineate extent of disease. BMP will be orders to assess kidney function2. Will schedule pt for L axillary US guided Bx w clip placement, next week. Hold ASA/Celebrex3. Will defer surgical procedure planning until MRI and bx results are available (however the skin over the superficial lesion will need to be removed with the leson - appears stuck, patient has nonhydromark clips as well- if NAC needed, the Hydromark clips will need to be placed prior.)4. Preop testing/ medical clearance will need to be obtained prior to surgery5. Genetic testing, will provide pt today6. Oncotype DX postop if invasive cancer meets testing criteria and no NAC done7. Referral to Medical Oncology post surgery8. Referral to Radiation Oncology post surgery if indicatedI reviewed the breast imaging with Ms. Ruano and her family. We have reviewed the overall breast cancer evaluation and staging. Based on the current information Ms. 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 The two foci of cancer measure 0.8 and 0.9 cm respectively. This puts her in the category T1b for each focus.She does have palpable nodes which may be reactive post previous biopsy, however the prebx US noted cortical thickening over 4 mm. The lymph nodes with thickened cortex should be biopsied. Patient is scheduled for US guided Left LN bx next week. She will hold her ASA and Celebrex prior.We are also awaiting result of MRI breast to further evaluate the breasts and lymph nodes.Depending if patient's lymph nodes are involved with cancer vs clear of cancer she will fall into N1-0 category.I have discussed various component of multidisciplinary approach to breast cancer which includes local treatments with surgery and radiation therapy and systemic treatments with antihormonal pill and possible chemotherapy.Regarding surgical component of the treatment, I explained to her that, surgery carries risks and potential complications, most common of which are risk of bleeding, infection and injury to surrounding structures like skin, nipple, muscle, lung, nerves especially long thoracic nerve and thoracodorsal nerve. Postsurgical complications may include, but are not limited to, numbness of the skin and or nipple, scarring, bruising, hematomas, seromas, flap and/or nipple necrosis, lymphedema, nerve injury causing weakness in motor function of upper extremity or scapula, contour deformity, poor cosmetic outcomes and need for additional surgeries. Those risks were explained to the patient and she expressed understanding.We have discussed that with breast conserving surgery there is a higher risk of locoregional recurrence of tumor because there is more rincon breast tissue left behind. The percentage of locoregional recurrence is lower with mastectomy than with breast conserving surgery but it is not zero as it is impossible to remove 100% of all breast tissue cells during mastectomy. There is also 10-20% chance of positive margins with breast conserving surgery w hich will warrant additional surgery to clear those margins. I also explained that with breast conserving surgery she may need to have radiation therapy in order to assure equal survival between the breast conservative treatment and mastectomy. Radiation therapy after mastectomy will be warranted only if the final mastectomy margins are positive or if lymph nodes are positive.We have also discussed that if she chooses mastectomy, she is entitled to reconstruction if she wishes to have it. Reconstruction options will be discussed in details with plastic surgeon. I have explained to the patient that reconstruction is considered part of breast cancer treatment and is covered by insurance.I explained that in cases of invasive cancer, we pursue sentinel lymph node biopsy in fit patients in addition to removal of the tumor from the breast. I explained that this is done to test the very first lymph nodes draining the breast for presence of cancer. This will be done with radionucleotide injection and possibly with blue dye tracer. If the lymph nodes contain cancer, depending on what surgery was performed and how many lymph nodes are positive, additional surgery and/ or radiation therapy to axilla may be warranted as well. I will send a prescription for the EMLA cream to be applied to the affected nipple in order to decrease discomfort of injections.Regarding evaluation of contralateral breast, she had a screening mammogram done in February 2020 and no abnormal findings were seen. She has MRI breast scheduled soon which will help evaluate the contralateral breast as well.Since patient was diagnosed with breast cancer, she qualifies for genetic testing. She was counseled about the genetic testing - see below- and wishes to proceed with the genetic testing. Kit was given today.I discussed with the patient and her family that Oncotype Dx is used to predict the probability of cancer coming back. I explained that if the test comes back with a high score, chemotherapy may be considered. We will plan on getting Oncotype Dx after surgery if cancer meets the criteria and no NAC was done prior to surgery.I will place referral for Medical Oncology.I explained to the patient that she may need to follow up with radiation oncology if she wants to pursue breast conserving surgery or if lymph nodes or mastectomy margins are positive. I will place this referral. She can schedule appointment with [facility] after surgery.Finally, I asked patient to schedule appointment with her primary care doctor as we will need a surgical clearance, latest labs and imaging (CBC, BMP, CXR,EKG).All questions were answered. Patient and her family agree with the plan. Palpable lymph node Patient does have palpable l ymph nodes in the left axilla. On the formal ultrasound of the left axilla prior to the biopsy lymph nodes with cortical thickness over 4 mm were noted as well.I will schedule patient for left axillary lymph node biopsy under ultrasound guidance with me next week.I asked patient to stop aspirin and Celebrex prior to procedure starting today. History of hormone replacement therapy Patient was on Premarin cream since 1995. She recently stopped this Premarin cream after being diagnosed with breast cancer.I recommend stopping permanently Premarin cream. Family history of cancer Patient has family history o f cancer. She is eligible for genetic testing base on her personal history of breast cancer. Genetic testing Patient participated in our cancer screening program and she was identified as a person who may be eligible for genetic testing due to her family history.Possible outcomes of genetic testing were discussed with patient with emphasis on the fact that the majority of cancers are not related to germline mutations but are rather due to somatic mutations.I have explained that the genetic testing can come back as positive for specific pathological gene mutation, as negative, or as variant of unknown significance (VUS) which means that there is duration in the gene however we do not have enough information to determine the significance importance of this ulceration. I explained to the patient that we do not asked on VUS and treat them as negative until they are reclassified as pathologically significant mutation or benign alteration.We have discussed that regardless of test outcome patient cannot have her health insurance denied in the future.Patient is interested in proceeding with genetic testing. We will provide her with the blood kit today. We will update her about the results of genetic testing when the test is completed. Aspirin long-term use Aspirin and Celebrex will ne ed to be held 7 days prior to lymph node biopsy and then 7 days prior to surgery. Treatment Notes Test Name Order Date MRI Breast Bilat with and w/o Contrast 2020-03-30 [facility] US Guided Breast Biopsy (Clip Placement if Indicat ed) 2020-03-30 Insurance Providers Payer Name Payer Address Payer Phone Insured Name Patient Relati onship to Insured Coverage Start Date Coverage End Date [employer] LIFE [address] [facility] [phone] As Elin barrientos MEDICARE Part A and B [address] [facility] [phone] Elin Ruano
--- OUTSIDE RECORDS SUMMARY | 2020-04-28 10:53 | CCD ---
Author Author [facility] Organization [facility] Address Unknown Phone Unavailable Care Team Providers Care Licensed Practical Nurse Name Role Phone Dominiqueromeo Jacqueline Unavailable PROBLEMS Type Condition ICD9-CM Code [id number] Code Onset Dates Condition S tatus W/U Status Risk SNOMED Code Notes Problem Malignant neoplasm of unspecified site of left female breast C50.912 Active confirmed [id number] ALLERGIES No Known Allergies ENCOUNTERS from 1950 to 2020-04-15 Encounter Location Date Provider Diagnosis [address] [phone] Apr, Jacqueline Brown IMMUNIZATIONS No Information SOCIAL [...] Information RESULTS No Results REASON FOR VISIT tumor board discussion results MEDICAL (GENERAL) HISTORY Type Description Date Medical [...] Information ASSESSMENTS No Information PLAN OF TREATMENT Next Appt Details Provider Name:Jacqueline Brown, 25-04-23 02:30:00 PM, [address] [place] [address], [id number], Provider Name:Jacqueline Brown, 23-05-00 01:00:00 PM, [address] [place] [address], [id number], Provider Name:Jacqueline Brown, 23-05-21 09:30:00 AM, [address] [place] [address], [id number], Insurance Providers Payer Name Payer Address Payer Phone Insured Name Patient Relati onship to Insured Coverage Start Date Coverage End Date MEDICARE Part A and B [address] [facility] [phone] Elin Ruano FOR LIFE [address] [facility] [phone] As Elin barrientos
[2020-04-28] MEDS ORDERED: LIDOCAINE 1% SDV 30ML VIAL As Ordered ONE (12:22)
[2020-04-28] MEDS ORDERED: BUPIVACAINE HCL 0.25% 30ML VIAL As Ordered ONE (12:22)
[2020-04-28] MEDS ORDERED: propofoL 200 MG/20 ML VIAL As Ordered ONE (13:08)
[2020-04-28] MEDS ORDERED: LIDOCAINE 2% 100MG/5ML SDV (FOR ANES.) As Ordered ONE (13:08)
[2020-04-28] MEDS ORDERED: fentaNYL 250 MCG/5 ML INJECTION (J3010) As Ordered ONE (13:08)
[2020-04-28] MEDS ORDERED: MIDAZOLAM INJ 2MG/2ML VIAL (J2250 PER 1MG) As Ordered ONE (13:08)
[2020-04-28] MEDS ORDERED: METOCLOPRAMIDE INJ 10MG/2ML VIAL (J2765 PER 1) As Ordered ONE (13:09)
[2020-04-28] MEDS ORDERED: dexameTHASONE 4 MG/ML 1ML VIAL (J1100 PER 1MG) As Ordered ONE (13:09)
[2020-04-28] MEDS ORDERED: ONDANSETRON 4MG/2ML VIAL As Ordered ONE (13:09)
[2020-04-28] MEDS ORDERED: ROCURONIUM BROMIDE 50 MG/5 ML VIAL As Ordered ONE (13:09)
[2020-04-28] MEDS ORDERED: SCOPOLAMINE 1MG TRANSDERMAL PATCH As Ordered ONE (13:50)
[2020-04-28] MEDS ORDERED: SCOPOLAMINE 1MG TRANSDERMAL PATCH TOP ONE (13:50)
[2020-04-28] MEDS ORDERED: PHENYLephrine 500MCG 5ML (100MCG/ML) SYRINGE As Ordered ONE (14:36)
[2020-04-28] MEDS ORDERED: REMIFENTANIL 1MG 3ML VIAL As Ordered ONE (15:07)
--- NOTE | 2020-04-28 15:36 | REP ---
INDICATION: LEFT BREAST CA. COMPARISON: None. TECHNIQUE/RADIOTRACER AND DOSE: This procedure was performed by Edna Ball [facility], under the direct supervision of Dr. Garcia. Images were reviewed with Dr. Garcia prior to dictation. The risks and benefits of the procedure were explained to the patient and informed consent was obtained both orally and written. Directly prior to the start of the procedure, a formal timeout was done in the exam room. Using topical anesthetic and sterile technique 1.022 mCi of filtered Technetium-99m sulfur colloid was injected subdermally in 8 fractionated periareolar injections. FINDINGS: Images obtained 1 hour after injection show multiple myron uptake in the left axilla. IMPRESSION: There is multiple myron uptake in the left axilla. <Electronically signed by Edna Ball > 04/28/20 1408 <Electronically signed by Nelson Garcia > 04/28/20 1538
[2020-04-28] MEDS ORDERED: ePHEDrine SULFATE 25 MG/5 ML(5MG/ML) SYRINGE As Ordered ONE (16:53)
[2020-04-28] MEDS ORDERED: ACETAMINOPHEN 1000MG 100ML IV BTL (OFIRMEV) (J0131 PER 10MG) As Ordered ONE (17:16)
[2020-04-28] MEDS ORDERED: HYDROmorphone HCL 2 MG/ML 1ML VIAL (J1170) As Ordered ONE (17:37)
[2020-04-28] MEDS ORDERED: HYDROMORPHONE HCL 0.5 MG/ 0.5 ML SYRINGE (J1170 PER 1) IV PRN (19:00)
[2020-04-28] MEDS ORDERED: METOCLOPRAMIDE INJ 10MG/2ML VIAL (J2765 PER 1) IV PRN (19:00)
[2020-04-28] MEDS ORDERED: oxyCODONE 5MG TAB PO PRN (19:00)
[2020-04-28] MEDS ORDERED: ONDANSETRON 4MG/2ML VIAL IV PRN ×2 (19:00→19:40)
[2020-04-28] MEDS ORDERED: LR 1,000 ML IV SCH ×2 (19:00→19:40)
[2020-04-28] MEDS ORDERED: fentaNYL 100 MCG/2 ML INJECTION (J3010) IV PRN (19:00)
[2020-04-28] MEDS ORDERED: ROXI1TAB2 PO (19:13)
[2020-04-28] MEDS ORDERED: PROMETHAZINE INJ 25 MG/ML VIAL (J2550) As Ordered ONE (19:37)
[2020-04-28] MEDS ORDERED: PROMETHAZINE INJ 25 MG/ML VIAL (J2550) IV ONE (19:40)
[2020-04-28] MEDS ORDERED: MORPHINE 2 MG/ML 1ML VIAL (J2270) IV PRN (19:40)
[2020-04-28] MEDS ORDERED: ACETAMINOPHEN TAB 650MG DOSE (2X325MG) PO PRN (19:40)
[2020-04-28] MEDS ORDERED: traMADol 50 MG TAB PO PRN (19:40)
[2020-04-28 21:00] VITALS: BP 128/72
[2020-04-28 21:30] VITALS: BP 122/71
[2020-04-28] MEDS: ceFAZolin SOD 2 GM in IV 1 EA IV SCH (22:10)
[2020-04-28 22:30] VITALS: BP 122/70
[2020-04-28 23:30] VITALS: BP 120/70
[2020-04-29 00:30] VITALS: BP 116/68
[2020-04-29 06:00] VITALS: BP 114/66
[2020-04-29] MEDS: ceFAZolin SOD 2 GM in IV 1 EA IV SCH (06:02)
--- NOTE | 2020-04-29 08:29 | REP ---
INDICATION: LEFT BREAST BX. COMPARISON: None. TECHNIQUE: Sonographic guidance. FINDINGS: Sonographic guidance is provided to Dr. Brown performed ultrasound-guided wire localization and HydroMARK placement in the OR. IMPRESSION: Sonographic guidance. <Electronically signed by Nelson Garcia > 04/29/20 [id number]
--- NOTE | 2020-05-01 09:07 | ROOPDOC ---
[facility] Report Of Operation Report of Operation DATE OF PROCEDURE: 04/28/20 PREPROCEDURE DIAGNOSES: multifocal left breast cancer POSTPROCEDURE DIAGNOSES: same PROCEDURE: Left lumpectomy with intraoperative wire placement, Left sentinel lymph node biopsy, left targeted excision of 2 previously biopsed left axillary lymph nodes with intraop wire placement x2 and excision of intraop identified left palpable lymph node SURGEON: Yesy Martinez ANESTHESIA: general ESTIMATED BLOOD LOSS: Approximately 50 mL. COMPLICATIONS: none REMARKS: 2 clips identified in the excised 2 axillary lymph nodes, sentinel lymph nodes identified, left axillary palpable LN identified, 2 clips is the lumpectomy specimen present PROCEDURE NOTE: INDICATIONS: Ms. Elin Ruano is a 70-year-old woman who was found to have two suspicious lesions on mammogram after patient presented to the doctor with left breast mass palpable lump. Biopsy of both lesions was done at OSH and showed IDC Grade 2 ER+LA+Her2 negative. On initial US of L axilla there was a lymph node noted with 4 mm cortex. This lymph node was not biopsied prior at OSH. The US bx of the lymph node was done when patient presented to my clinic. Incidentally there was very small hypoechoic nodule noted in the left axilla. This was also biopsied. Pathology of the lymph node with 4mm cortex came back as a reactive lymph node however the nodule came back as a lymph node with cancer metastasis. Patient underwent MRI of the breast and there were two foci of cancer seen in the left breast and 2 enlarged lymph nodes with biopsy clips seen. Since patient presented with no palpable lymph nodes, patients case was presented at tumor board and consensus was made to pursue sentinel lymph node biopsy with excision of the previously biopsied lymph nodes. She was medically cleared for surgery by her primary care doctor. Risks and possible complications of surgical procedure including bleeding, infection and injury to surrounding structures were explained to the patient and she wished to proceed. Consent was signed. My initials were placed on the operative site. Subcutaneous injection of 5000 units of heparin was done in Preop. The injection of radioactive tracer was done in radiology department preoperatively. Lymphoscintigraphy imaging was reviewed in preop. DETAILS: Patient was taken to the operating room and placed on the operating room table. A sign in was called stating patients name, date of and the procedure to be done. Preoperative antibiotics were infused. Smooth induction of general anesthesia was done. Patients hands were extended on arm rests. Care was taken not to over extend the arms. Pillow was placed under the knees and a foam was placed under the heels. Sequential compression devices were placed and assured to function correctly. Procedure was started with left breast intraop wire localization of the left medial deep lesion and the two previously biopsied left axillary lymph nodes. Appropriate time out was done and patients name, date of , and the procedure to be done were confirmed. Left breast was cleaned by me. Intraoperative ultrasound was used to confirm location of the medial deep lesion and the left axillary previously biopsied lymph nodes. Since breast biopsy was done at OSH, non-Hydromark clip was in the lesion, however deep medial breast lesion was seen on sonography. 21 G Kopans Breast Lesion Localization Needle was used to place 25 cm wire through the lesion and the end of the wire was passed a centimeter deep. The images were captured confirming adequate placement of the localizing wire. Next my attention was turned toward the left axilla. Lateral and medial previously biopsied lymph nodes with Hydromarks were identified. First, 21 G Kopans Breast Lesion Localization Needle was used to place 25 cm wire through the medial inferior lymph node. Next, the superior and lateral previously biopsied lymph node with Hydromark inside was identified. Again, 21 G Kopans Breast Lesion Localization Needle was used to place 25 cm wire through that lymph node. The images were captured confirming adequate placement of the localizing wire. Construction Secretary assisted with the wire placement. Next, patients left breast and axilla were prepped and draped in the usual fashion. Care was taken not to displace the wires. Appropriate time out was done again prior second part of the procedure. Patients name, date of , and the procedure to be done were confirmed. Procedure was started with excision of the previously biopsied left axillary lymph nodes. Local anesthetic using 1% lidocaine and 0.25 % Marcaine 50/50 mix was injected at the planned site of incision at the inferior aspect of axillary hair line in the left axilla. The sharp and blunt dissection was carried throug h the subcutaneous adipose tissue. Clavipectoral fascia was opened. Dissection was first carried toward the lateral and superior localized lymph node. The localizing wire was carefully pulled into the wound. The deep left axillary superior lateral lymph node was carefully dissected from the surrounding tissue and interrogated with Neoprobe. No signal was present. The lymph node was placed on the grid and placed into [employer] [facility]imen [facility] System. The image revealed the clip inside the tissue. The specimen was labeled with patients name and left lateral biopsied lymph node, not hot and sent to pathology. Next, the second wire localizing the medial inferior lymph node was pulled into the wound. The tissue surrounding the tip of the wire was dissected carefully and placed on the grid and placed into [employer] [facility] System. The image revealed no clip inside the tissue. Intraop ultrasound was used to identify the location of missing Hydromark clip and the surrounding tissue was dissected. This was again placed on the grid next to the tissue with the wire and intaop radiography was taken. This time there was clip visible in the tissue. The tissue was also investigated with the Neoprobe and high signal was identified 10 second count ex vivo was [id number]. This lymph node was considered to be a sentinel lymph node. The specimens were labeled with patients name and left medial bio psied lymph node, hot and sent to pathology. At this point Neoprobe was placed into the left axilla to identify any additional sentinel lymph nodes. Superiorly and medially, under the pectoralis major muscle there was another high signal sentinel lymph node identified and excised. The ex-vivo 10 second count was [id number]. The specimens were labeled with patients name and sentinel lymph node and sent to pathology. No additional lymph nodes with high radioactive signal were identified. The 10 second count of the background was 13. Axilla was palpated and a small, harder, palpable lymph node was noted along the left chest wall in lower deep axilla. This node was excised and interrogated with Neoprobe. There was no signal. The specimens were labeled with patients name and left axillary palpable node at chest wall and sent to pathology. Adequate hemostasis was assured. Additional local anesthetic was injected into surrounding tissues. Wound was irrigated. Clavipectoral fascia was closed with 3-0 Vicryl interrupted suture. Dermal layer was closed at the end of the case with 3-0 Monocryl and skin was closed with 4-0 Monocryl. Surgical glue was applied to the incision at the end of the procedure. Next, my attention was turned toward the left breast. Local anesthetic using 1% lidocaine and 0.25 % Marcaine 50/50 mix was injected at the site of planned periareolar incision. The incision was made with the scalpel the areola from the medial left breast tissue. Next, a crescent cordero shape incision was made to incorporate the skin over the superficial palpable cancer. Subcutaneous skin flaps were raised away from the crescent cordero skin island. The guide wire was carefully pulled into the wound. Dissection was guided with intraoperative ultrasound to excise both cancer sites as a one specimen. The end of the wire was identified with palpation. The lumpectomy specimen was carefully removed from the breast keeping its proper orientation and moved to the back table where margins were marked with the surgical inking kit following the standard colors recommendations. Excised specimen measured 6.4 cm x 5 cm x 4.1 cm. Specimen was then placed on the grid and placed in [employer] [facility]imen [facility] System. The image revealed the wire and the two ribbon clips in the specimen. The specimen was labeled with patients name and left lumpectomy and sent to pathology. Since the deep clip was centrally located on 2 intraop radiography views and since skin was taken for the superficial lesion, there was no need for additional margin resection. Wound was thoroughly irrigated. Adequate hemostasis was assured. Additional local anesthetic was injected into surrounding tissues. Clips were placed to marta the cavity. space created by the excision of 6.4 x5.0 x4.1 lumpectomy specimen was approximated with 2-0 Vicryl after superior, medial and inferior tissue mobilization. In order to close the skin without causing deformity in the nipple-areola complex, the crescent cordero incision was closed on itself and the lateral edge was sutured to the areolar border. The dermis was closed with 3-0 Monocryl and skin was closed with 4-0 Monocryl. Surgical glue was placed over the incision. Patient emerged from the anesthesia without any problems however she remained drowsy on her route to PACU. Fluffs were placed over the operative site and patients chest was wrapped snuggly in the JESSICA wrap. Sponge and instrument counts were done and were correct. Patient tolerated procedure well and was taken to recovery unit in stable condition. In PACU she remained drowsy and nauseated. She was admitted for observation. YESY MARTINEZ DO May 01, 2020 09:07
--- NOTE | 2020-05-01 09:18 | IPNPDOC ---
Subjective Date Seen The patient was seen on 04/29/20. Subjective Chief Complaint/HPI Patient was admitted postop due to drowsiness and nausea. This has resolved over night. Her pain is well controlled. She does not have nausea and was able to tolerate crackers and some liquids.She did not try breakfast yet. She voided postop Objective Physical Examination Other physical findings A&O x3 breathing comfortably on room air Left breast incisions well approximated, no drainage, no erythema, no palpable hematoma present. Mild pain. JESSICA wrap replaced after the exam. abdomen soft Assessment /Plan Assessment 70 years old jessicay, s/p L lumpectomy with L SLNBx, removal of L chest wall palpable lymph node and targeted L axillary excision to remove 2 previously biopsied lymph nodes POD1, admitted for postop drowsiness and nausea for obs, now resolved - keep postop dressing in place until i see patient in the clinic - ok to dc home today if pt tolerates breakfast - pain control, Rx sent to pharmacy yesterday - OOB , ambulate as tolerated - DVT ppx: scds - plan discussed with nursing staff Plan/VTE VTE Prophylaxis Ordered?: Yes VTE Exclusion Pharmacological: Bleeding Risk VS, I&O, 24H, Fishbone Vital Signs/I&O Vital Signs Date Time Temp Pulse Resp B/P (MAP) Pulse Ox O2 Delivery O2 Flow Rate FiO2 04/29/20 06:00 98.0 99 20 114/66 (82) 96 Room Air 2.0 YESY MARTINEZ DO May 01, 2020 09:18
--- NOTE | 2020-05-03 11:59 | REP ---
INDICATION: LEFT BREAST BX. COMPARISON: 02/18/2020, 02/12/2020. TECHNIQUE: Specimen radiographs are performed. FINDINGS: First image shows a localizing wire. There is a biopsy clip centrally within the soft tissue specimen. Second image shows a localizing wire within a round smoothly marginated nodule located within the surgical specimen. The nodule measures 7 mm. The 3rd image shows that same wire and nodule within the specimen. Another soft tissue specimen is seen containing a coiled biopsy clip, as seen on the 1st image. Fourth image shows a larger specimen containing a localizing wire and 2 curvilinear biopsy clips. The next and final image shows that same specimen containing a localizing wire and the 2 curvilinear biopsy clips within the specimen. IMPRESSION: Specimen radiographs as discussed above. RECOMMENDATION: Clinical follow-up. <Electronically signed by Royce Loera > 05/03/20 [id number]
== END 2020-04-29 09:50 | disposition home or self-care (01) ==
LOC: M SDC 10:48 → M MS5PR 20:55 → M SDC 04-29 09:50
PROVIDERS: ATTEND Surgery
DX: C50.912 Malignant neoplasm of unspecified site of left female breast (principal); R59.9 Enlarged lymph nodes, unspecified; G43.909 Migraine, unspecified, not intractable, without status migrainosus; Z17.0 Estrogen receptor positive status [ER+]; Z90.710 Acquired absence of both cervix and uterus; Z92.29 Personal history of other drug therapy
CPT/HCPCS: 19083; 36415; 38525; 76942; 78195; 86850; 86900; 86901; 88305; 88307; 88341; 88342; 96374; A9541; J0131; J0690; J1100; J1170; J1644; J2250; J2370; J2405; J2765; J3010

== ENCOUNTER 2020-05-10 08:51 | Emergency (ER) | payer MEDICARE, OTHER ==
[~2020-05-10] VITALS: Ht 154.9 cm; Wt 67.2 kg
[2020-05-10 09:44] LABS: BASO % 0.4 % (0.0-1.0); EOS # 0.1 10^3/uL (0.0-0.5); EOS % 1.2 % (0.0-3.0); HEMATOCRIT 38.2 % (36.0-47.0); HEMOGLOBIN 11.9 g/dl (12.0-15.5); LYMPH # 2.3 10^3/uL (1.5-5.0); LYMPH % 21.4 % (24.0-44.0); MEAN CORPUSCULAR HEMOGLOBIN 27.8 pg (27.0-33.0); MEAN CORPUSCULAR HGB CONC 31.2 g/dl (32.0-36.5); MEAN CORPUSCULAR VOLUME 89.3 fl (80.0-96.0); MONO # 0.8 10^3/uL (0.0-0.8); MONO % 7.8 % (2.0-8.0); NEUTROPHILS # 7.3 10^3/uL (1.5-8.5); PLATELET COUNT, AUTOMATED 325 10^3/uL (150-450); RED BLOOD COUNT 4.28 10^6/uL (4.00-5.40); WHITE BLOOD COUNT 10.6 10^3/uL (4.0-10.0)
--- NOTE | 2020-05-10 09:56 | REP ---
INDICATION: Abdominal Pain. COMPARISON: None. TECHNIQUE: Supine and erect views of the abdomen, PA view chest. FINDINGS: There is no evidence of free intraperitoneal air. There is no evidence of bowel obstruction. There is a large amount of fecal material seen throughout the colon. No dilated bowel loops are seen. Two subcentimeter calcific type densities are seen in the right mid abdomen which could be related to fecal material, renal calculi cannot be excluded. There are degenerative changes of the spine. No infiltrate is seen in either lung. The heart is normal in size. The mediastinal silhouette is unremarkable. Scattered metallic clips overlie the left hemithorax. IMPRESSION: No free air or obstruction. Large amount of fecal material throughout the colon. 2 subcentimeter calcific type densities right mid abdomen, cannot exclude renal calculi. <Electronically signed by Royce Loera > 05/10/20 [id number]
[2020-05-10 10:11] LABS: ALBUMIN 3.5 GM/DL (3.2-5.2); ALT/SGPT 142 U/L (12-78); BILIRUBIN,DIRECT < 0.1 MG/DL (0.0-0.2); BILIRUBIN,TOTAL 0.3 MG/DL (0.2-1.0); BLOOD UREA NITROGEN 18 MG/DL (7-18); CARBON DIOXIDE LEVEL 26 MEQ/L (21-32); CHLORIDE LEVEL 105 MEQ/L (98-107); CREATININE FOR GFR 0.96 MG/DL (0.55-1.30); GLOMERULAR FILTRATION RATE > 60.0 (>39); GLUCOSE, FASTING 130 MG/DL (70-100); LIPASE 97 U/L (73-393); POTASSIUM SERUM 4.2 MEQ/L (3.5-5.1); SODIUM LEVEL 138 MEQ/L (136-145); TOTAL PROTEIN 7.3 GM/DL (6.4-8.2)
[2020-05-10] MEDS ORDERED: MAGNESIUM CITRATE 300 ML BTL PO ONE (10:15)
[2020-05-10 11:44] VITALS: BP 130/74
== END 2020-05-10 12:15 | disposition home or self-care (01) ==
LOC: M ED 08:51
DX: K59.00 Constipation, unspecified (principal); C50.812 Malignant neoplasm of overlapping sites of left female breast; K76.0 Fatty (change of) liver, not elsewhere classified; R91.1 Solitary pulmonary nodule; Z79.899 Other long term (current) drug therapy
CPT/HCPCS: 36415; 74021; 78815; 80048; 80076; 83690; 85025; 99284; A9552

== ENCOUNTER → 2020-05-10 | Outpatient (CLI) | payer MEDICARE, OTHER ==
[~2020-05-10] MED LIST changes: -HEPARIN SOD (PORCINE) 5000UNITS/ML 1ML VIAL/SYRINGE SQ ONE; -LIDOCAINE 1% MDV 20ML VIAL SQ PRN; -LR 1,000 ML IV ONE; -NS 1,000 ML IV ONE; +ROXI1TAB2 PO; -ceFAZolin SOD 2 GM in IV 1 EA IV ONE
--- NOTE | 2020-05-10 18:52 | REP ---
INDICATION: STAGING BREAST CANCER C50.912. Left breast cancer with significant lymph node involvement, grade 3, stage 2-3, rule out distal disease and evaluate preoperatively ani remaining axillary foci of disease. Rule out metastatic disease. COMPARISON: Comparison breast MRI study March 26, 2020. Comparison mammography February 12, 2020. In. TECHNIQUE: Sixty-six minutes following the intravenous injection of a 17.50 mCi dose of F-18 FDG, three-dimensional PET scintigraphy is acquired from the skull base to the proximal thighs. Triplanar noncontrast CT scanning is acquired through the same anatomic range for attenuation correction, and image registration with scan parameters optimized to minimize radiation exposure to the patient. PET scintigraphy and CT datasets were fused and displayed on a workstation with multiplanar and projection display capability. FINDINGS: Incidental findings include moderate to marked diffuse fatty infiltration of the liver. Head and neck soft tissues are unremarkable. No abnormal hypermetabolic myron uptake is seen in the neck. There is evidence of fairly extensive hematoma seroma cavity formation in the left axillary and left lateral breast soft tissues. Some postoperative changes are seen in the inferior medial aspect of the left breast as well. Mildly increased FDG accumulation is seen in these areas. In the left axilla, maximum SUV value surrounding the maternal Ms. Seroma is 4.33. In the left inferior breast, maximum SUV values 3.22. No supraclavicular or internal mammary hypermetabolic myron uptake is seen. Within the chest, there is a 9 mm noncalcified pulmonary nodule in the left lower lobe of the lung. This does not show hypermetabolic uptake, maximum SUV value 2.16. No other abnormal pulmonary parenchymal uptake is seen. No hilar or mediastinal myron uptake is observed in the chest. In the abdomen and pelvis, there is normal distribution of FDG tracer to the liver, spleen, gastrointestinal, and genitourinary tracts. No abnormal hypermetabolic uptake is seen in the abdomen or pelvis. No abnormal skeletal uptake is observed. IMPRESSION: Mildly increased uptake associated with fluid collections in the left axilla and left a block lateral breast and in postoperative changes in the medial breast on the left. No definite adenopathy or myron uptake is seen. There is a 9 mm pulmonary nodule in the left lower lobe of the lung of uncertain significance. This does not show hypermetabolic uptake. Follow-up is recommended. There is marked diffuse fatty infiltration of the liver. <Electronically signed by Nelson Garcia > 05/10/20 [id number]
== END ==
LOC: M PLARAD 13:34
PROVIDERS: ATTEND Surgery
DX: C50.812 Malignant neoplasm of overlapping sites of left female breast (principal); K76.0 Fatty (change of) liver, not elsewhere classified; R91.1 Solitary pulmonary nodule

== ENCOUNTER 2020-05-12 08:50 | Outpatient (RCR) | payer MEDICARE, OTHER ==
[2020-05-14] MEDS ORDERED: OXYB-54 PO (09:07)
[2020-06-01] MEDS ORDERED: ONDA8TAB10 PO (11:46)
[2020-06-01] MEDS ORDERED: PROC10TA4 PO (11:46)
== END 2020-06-02 ==
LOC: M PT 08:50
PROVIDERS: ATTEND Surgery
DX: C50.912 Malignant neoplasm of unspecified site of left female breast (principal)

== ENCOUNTER → 2020-06-03 | Outpatient (CLI) | payer MEDICARE, OTHER ==
[~2020-06-03] MED LIST changes: +ONDA8TAB10 PO; +OXYB-54 PO; +PROC10TA4 PO
== END ==
LOC: M LABSMTC 10:40
PROVIDERS: ATTEND Anesthesiology
DX: Z01.812 Encounter for preprocedural laboratory examination (principal)

== ENCOUNTER 2020-06-08 08:04 | Observation (INO) | payer MEDICARE, OTHER ==
[~2020-06-08] VITALS: Ht 152.4 cm; Wt 67.6 kg
[~2020-06-08 08:04] MED LIST changes: +HEPARIN SOD (PORCINE) 5000UNITS/ML 1ML VIAL/SYRINGE SQ ONE; +LR 1,000 ML IV ONE; +ceFAZolin SOD 2 GM in IV 1 EA IV ONE
[2020-06-08] MEDS ORDERED: LIDOCAINE 2% 100MG/5ML SDV (FOR ANES.) As Ordered ONE (08:12)
[2020-06-08] MEDS ORDERED: fentaNYL 100 MCG/2 ML INJECTION (J3010) As Ordered ONE ×3 (08:12→13:02)
[2020-06-08] MEDS ORDERED: propofoL 200 MG/20 ML VIAL As Ordered ONE (08:12)
[2020-06-08] MEDS ORDERED: MIDAZOLAM INJ 2MG/2ML VIAL (J2250 PER 1MG) As Ordered ONE (08:12)
[2020-06-08] MEDS ORDERED: SUCCINYLCHOLINE 100 MG/5 ML SYRINGE (J0330) As Ordered ONE (08:12)
[2020-06-08] MEDS ORDERED: ISOSULFAN BLUE(LYMPHAZURIN) 1% 50MG/5ML VIAL As Ordered ONE (08:57)
[2020-06-08] MEDS ORDERED: BUPIVACAINE HCL 0.25% 10ML VIAL As Ordered ONE (08:58)
[2020-06-08] MEDS ORDERED: LIDOCAINE 1% MDV 20ML VIAL As Ordered ONE (08:58)
[2020-06-08] MEDS ORDERED: SCOPOLAMINE 1MG TRANSDERMAL PATCH TOP ONE (09:00)
[2020-06-08] MEDS ORDERED: PHENYLephrine 500MCG 5ML (100MCG/ML) SYRINGE As Ordered ONE (10:05)
[2020-06-08] MEDS ORDERED: dexameTHASONE 4 MG/ML 1ML VIAL (J1100 PER 1MG) As Ordered ONE (10:11)
[2020-06-08] MEDS ORDERED: PHENYLEPHRINE 10MG/ML 1ML VIAL (J2370 PER 1) As Ordered ONE ×2 (10:40→10:41)
[2020-06-08] MEDS ORDERED: ePHEDrine SULFATE 25 MG/5 ML(5MG/ML) SYRINGE As Ordered ONE (10:45)
[2020-06-08] MEDS ORDERED: METOCLOPRAMIDE INJ 10MG/2ML VIAL (J2765 PER 1) As Ordered ONE (10:49)
[2020-06-08] MEDS ORDERED: KETOROLAC 60MG 2ML VIAL As Ordered ONE (10:49)
[2020-06-08] MEDS ORDERED: ONDANSETRON 4MG/2ML VIAL As Ordered ONE ×2 (10:49→17:42)
[2020-06-08] MEDS ORDERED: ACETAMINOPHEN 1000MG 100ML IV BTL (OFIRMEV) (J0131 PER 10MG) As Ordered ONE (10:49)
[2020-06-08] MEDS ORDERED: ceFAZolin 2 GM/D5W 50 ML IV BAG (J0690 PER 500MG) As Ordered ONE (14:16)
[2020-06-08] MEDS ORDERED: LR 1,000 ML IV SCH ×2 (17:43→17:45)
[2020-06-08] MEDS ORDERED: ONDANSETRON 4MG/2ML VIAL IV PRN ×2 (17:45)
[2020-06-08] MEDS ORDERED: MORPHINE 2 MG/ML 1ML VIAL (J2270) IV PRN (17:45)
[2020-06-08] MEDS ORDERED: oxyCODONE 5MG TAB PO PRN ×2 (17:45→19:25)
[2020-06-08] MEDS ORDERED: ACETAMINOPHEN TAB 650MG DOSE (2X325MG) PO PRN (17:45)
[2020-06-08] MEDS: fentaNYL 100 MCG/2 ML INJECTION (J3010) IV PRN ×4 (18:04→18:25)
[2020-06-08 20:00] VITALS: BP 124/68
[2020-06-08 20:30] VITALS: BP 125/59
--- NOTE | 2020-06-08 20:35 | IPNPDOC ---
Subjective Date Seen The patient was seen on 06/08/20. Subjective Chief Complaint/HPI Complains of mild pain at the surgical site. She also complains of nausea. Objective Physical Examination General Exam: Positive: Alert, Cooperative, No Acute Distress Eye Exam: Positive: PERRLA, Conjunctiva & lids normal, EOMI; Negative: Sclera icteric ENT Exam: Positive: Atraumatic, Mucous membr. moist/pink, Pharynx Normal Neck Exam: Positive: Supple; Negative: JVD, thyromegaly Chest Exam: Positive: Clear to auscultation, Normal air movement Heart Exam: Positive: Rate Normal, Regular Rhythm, Normal S1, Normal S2; Negative: Murmurs, Rubs Abdomen Exam: Positive: Normal bowel sounds, Soft; Negative: Tenderness, Hepatospenomegaly Extremity Exam: Negative: Clubbing, Cyanosis, Edema Assessment /Plan Assessment Ms. Ruano is a 70 year old female with PMH of migraine, low back pain due to arthritis, Endometriosis status post total hysterectomy/BSO 1995 was recently diagnosed with multifocal ductal carcinoma of the Left breast ER/[place] positive HER-2 negative diagnosed in feb 2020 underwent lumpectomy on 04/29/2020 which revealed grade 3 infiltrating and ductal carcinoma with axillary lymph node involvement so now metastatic left breast cancer. She was admitted today for excision of margin of the lumpectomy scar and left axillary dissection. Surgery was uneventful and hospitalist consulted for management of medical comorbidities. Metastatic left breast cancer s/p second surgery with left axillary lymph node dissection management as per Dr Waterman. Migraine continue propranolol. Plan/VTE VTE Prophylaxis Ordered?: Yes VS, I&O, 24H, Fishbone Vital Signs/I&O Vital Signs Date Time Temp Pulse Resp B/P (MAP) Pulse Ox O2 Delivery O2 Flow Rate FiO2 06/08/20 18:09 97.0 92 18 129/65 98 Nasal Cannula 2.0 WARNER CUELLAR MD Jun 08, 2020 18:22
[2020-06-08 21:00] VITALS: BP 122/58
[2020-06-08] MEDS ORDERED: PROPRANOLOL 60 MG LA CAP PO SCH (21:00)
[2020-06-08] MEDS: ceFAZolin SOD 2 GM in IV 1 EA IV SCH (21:04)
[2020-06-08 22:00] VITALS: BP 122/61
[2020-06-08 23:00] VITALS: BP 121/70
[2020-06-09] VITALS: BP 110/58
[2020-06-09] MEDS ORDERED: traMADol 50 MG TAB As Ordered ONE (00:13)
[2020-06-09] MEDS: traMADol 50 MG TAB PO PRN ×3 (00:16→10:44)
[2020-06-09 01:00] VITALS: BP 102/56
[2020-06-09] MEDS: ceFAZolin SOD 2 GM in IV 1 EA IV SCH (04:01)
[2020-06-09 04:16] VITALS: BP 117/57
[2020-06-09 08:11] VITALS: BP 106/55
[2020-06-09 08:14] VITALS: BP 106/55
[2020-06-09] MEDS ORDERED: PROPRANOLOL 60 MG LA CAP PO SCH (09:00)
[2020-06-09] MEDS ORDERED: ULTR50TA8 PO (11:38)
--- NOTE | 2020-06-09 11:55 | IPNPDOC ---
Subjective Date Seen The patient was seen on 06/09/20. Subjective Chief Complaint/HPI 70 y o L with Hx of L best Ca, who had index surgery about a month ago ( L lumpectomy and L SLNBx with targeted excision of 2 previously bx lymph nodes), who was admitted postop after completion axillary dissection and reexcision of anterior margin. She recovered well Her DARREN drainage is s/s She tolerated food and voided without issues. Her pain is well controlled Objective Physical Examination General Exam: Positive: Alert, Cooperative, No Acute Distress Eye Exam: Positive: PERRLA, Conjunctiva & lids normal, EOMI; Negative: Sclera icteric ENT Exam: Positive: Atraumatic, Mucous membr. moist/pink, Pharynx Normal Neck Exam: Positive: Supple; Negative: JVD, thyromegaly Chest Exam: Positive: Clear to auscultation, Normal air movement Heart Exam: Positive: Rate Normal, Regular Rhythm, Normal S1, Normal S2; Negative: Murmurs, Rubs Abdomen Exam: Positive: Normal bowel sounds, Soft; Negative: Tenderness, Hepatospenomegaly Extremity Exam: Negative: Clubbing, Cyanosis, Edema Other physical findings A&0 x3 breathing comfortably on room air Left breast incision is well approximated, no drainage or hematoma. Left axillary incision is well approximated, no drainage from the incision site, no hematoma, L lateral chest wall drain with s/s drainage abdomen nondistended extremities: no edema, good range of motion, little numbness in the left medial arm area other sensation and motor movement intact Assessment /Plan Assessment 70 y o L with L breast cancer, s/p completion of L axillary dissection POD1 - pain control, send Rx to Pharmacy - monitor drains, drain teaching per Nursing staff - record how much is coming per 24 h from the drain - appreciate medical team assistance in taking care of this patient - stable for d/c home today - f/u 06/14/20 in the office - above was discussed with nursing staff and the Medicine team Plan/VTE VTE Prophylaxis Ordered?: Yes VS, I&O, 24H, Fishbone Vital Signs/I&O Vital Signs Date Time Temp Pulse Resp B/P (MAP) Pulse Ox O2 Delivery O2 Flow Rate FiO2 06/09/20 10:44 16 06/09/20 08:14 71 106/55 06/09/20 08:11 97.9 99 Room Air 06/08/20 19:24 2.0 I&O- Last 24 Hours up to 6 AM 06/09/20 06:00 Intake Total 3080 ml Output Total 1200 ml Balance 1880 ml YESY MARTINEZ DO Jun 09, 2020 11:55
--- NOTE | 2020-06-09 18:44 | IPNPDOC ---
Subjective Date Seen The patient was seen on 06/09/20. Subjective Chief Complaint/HPI Feeling well this morning. No issues overnight. Eager to go home. Objective Physical Examination General Exam: Positive: Alert, Cooperative, No Acute Distress Eye Exam: Positive: PERRLA, Conjunctiva & lids normal, EOMI; Negative: Sclera icteric ENT Exam: Positive: Atraumatic, Mucous membr. moist/pink, Pharynx Normal Neck Exam: Positive: Supple; Negative: JVD, thyromegaly Chest Exam: Positive: Clear to auscultation, Normal air movement Heart Exam: Positive: Rate Normal, Regular Rhythm, Normal S1, Normal S2; Negative: Murmurs, Rubs Abdomen Exam: Positive: Normal bowel sounds, Soft; Negative: Tenderness, Hepatospenomegaly Extremity Exam: Negative: Clubbing, Cyanosis, Edema Assessment /Plan Assessment Ms. Ruano is a 70 year old female with PMH of migraine, low back pain due to arthritis, Endometriosis status post total hysterectomy/BSO 1995 was recently diagnosed with multifocal ductal carcinoma of the Left breast ER/LA/LA positive HER-2 negative diagnosed in feb 2020 underwent lumpectomy on 04/29/2020 which revealed grade 3 infiltrating and ductal carcinoma with axillary lymph node involvement so now metastatic left breast cancer. She was admitted today for excision of margin of the lumpectomy scar and left axillary dissection. Surgery was uneventful and hospitalist consulted for management of medical comorbidities. Metastatic left breast cancer s/p second surgery with left axillary lymph node dissection pain controlled with Tramadol management as per Dr Waterman. Migraine continue propranolol. Plan/VTE VTE Prophylaxis Ordered?: Yes VS, I&O, 24H, Rizwan Vital Signs/I&O Vital Signs Date Time Temp Pulse Resp B/P (MAP) Pulse Ox O2 Delivery O2 Flow Rate FiO2 06/09/20 11:25 16 06/09/20 08:14 71 106/55 06/09/20 08:11 97.9 99 Room Air 06/08/20 19:24 2.0 I&O- Last 24 Hours up to 6 AM 06/09/20 07:00 Intake Total 3080 ml Output Total 1200 ml Balance 1880 ml WARNER CUELLAR MD Jun 09, 2020 18:44
--- NOTE | 2020-06-10 22:41 | ROOPDOC ---
[facility] Report Of Operation Report of Operation DATE OF PROCEDURE: 06/08/20 PREPROCEDURE DIAGNOSES: left breast cancer with axillary lymph node involvement POSTPROCEDURE DIAGNOSES: left breast cancer with axillary lymph node involvement PROCEDURE: left anterior lumpectomy margin reexcision, left lumpectomy scar revision, left axillary lymph node dissection with reverse axillary mapping SURGEON: Yesy Brown DRAFTER (CAD) ELECTRONIC: Darshana Perez ANESTHESIA: general ESTIMATED BLOOD LOSS: Approximately 50 mL. COMPLICATIONS: no REMARKS: difficult to dissect axillary content DESCRIPTION OF PROCEDURE: INDICATIONS: Ms. Elin Ruano is a 70 year old lady who was found to have left breast cancer with involvement of 3 left axillary lymph nodes. She underwent lumpectomy with close anterior margin with excess medial tissue at lumpectomy site, requiring scar revision with lumpectomy site margin re-excision and completion of left axillary dissection. Risks and possible complications of surgical procedure including bleeding, infection and injury to surrounding structures, especially risk of lymphedema and nerve/ vessel injury, were explained to the patient and she wished to proceed. Consent was signed. Subcutaneous heparin 5000 units was given to patient. She was medically cleared for surgery previously. DETAILS: Patient was taken to the operating room and placed supine on the operating room table. Pillow was placed under her knees. Foam was placed under her heels. A sig n in was called stating patients name, date of and the procedure to be done. Preoperative antibiotics were infused. Smooth induction of general anesthesia was done. Patients hands were extended on arm rests. Care was taken not to over extend patients arms. Saeed catheter was placed. Sequential compression devices were placed and assured to function correctly. Patients left breast and left axilla were prepped and draped in the usual fashion. Appropriate time out was done and patients name, date of , and the procedure to be done were confirmed. The procedure was started with opening the previous left periareolar incision. This was done with scalpel. Blunt dissection was carried toward the seroma cavity. Seroma fluid was evacuated upon entering the cavity. Cavity margins were assessed and the anterior margin along lumpectomy cavity was identified. Allis clamps were used to grab the anterior margin tissue and a sharp dissection of tissue was done along entire anterior aspect of the lumpectomy cavity. Specimen was carefully moved to the back table and marked with the surgical inking kit following the standard colors recommendations with the exception that the margin closes to the lumpectomy site (false margin) was left uninked. The specimen was labeled with patients name and right anterior margin and sent to pathology. Next, the wound was irrigated thoroughly and adequate hemostasis was assured. Additional local anesthetic was injected into surrounding tissues. Excess skin was excised at the site of lumpectomy incision to allow cosmetically appropriate closure. The dermis was closed with 3-0 Vicryl and skin was closed with 4-0 Monocryl. Surgical glue was placed over the incision. At this time our attention was turned toward the left axilla. Isosulfan Blue was injected into the left medial arm and the area was massaged for a few minutes. Previous left axillary scar was excised and sent to pathology as a specimen. Subcutaneous flaps were raised superiorly, inferiorly, laterally and medially. Pectoralis muscle was identified and the lateral border was cleared from the adhesions. Axillary vein was also identified marking the superior extent of the axilla. A few blue lymphatic vessels were noted along the axillary vein and an effort was made to spare those. It was noted that there is an extensive scar tissue in the left axilla. The dissection was very difficult. The intercostobrachial nerve branches were identified at the chest wall and at the lateral aspect of the skin. Those nerve branches, however, entered very dense axillary content and could not be dissected away from the surrounding tissues. Doctor Perez scrubbed in at this time to assist with very difficult dissection to allow preservation of critical structures and to expedite the case surgical time. Thoracodorsal nerve, artery and vein were identified at the axillary vein and were traced down until they turned toward the latissimus dorsi muscle. The nerve was circled with the vessel loop for easier identification throughout the case. The nerve was functional which was confirmed throughout the case. Upon medial dissection along the serratus muscle, Long thoracic nerve was identified and encircled with the vessel loop for easier identification. The nerve was functional which was confirmed throughout the case. At this time, with all the critical structures identified, the axillary content between those structures was removed and sent to pathology for evaluation. Adequate hemostasis was achieved. Wound was irrigated thoroughly. 15 Thai Kiko drain was placed into the axilla through a separate stab incision after some of the soft tissues were loosely approximated to protect the vessels and nerves from the vacuum suctioning. The drain was secured at the skin with stitches. Next, pectoral and serratus and latissimus plane blocks on the left side were done with local anesthetic. Dermis was closed with 3-0 Vicryl. Skin was closed with 4-0 Monocryl. Surgical glue was applied to the top of the incision. Surgical gauze was placed over the incision and the chest was wrapped with JESSICA wrap. Final instruments and sponge count were correct. Patient emerged from general anesthesia without any problems. Patient tolerated procedure well and was taken to recovery unit in stable condition. YESY BROWN DO Jun 09, 2020 11:55
== END 2020-06-09 12:45 | disposition home or self-care (01) ==
LOC: M SDC 08:04 → M PED 08:06 → M SDC 19:51
PROVIDERS: ADMIT Surgery; ATTEND Surgery
DX: C50.812 Malignant neoplasm of overlapping sites of left female breast (principal); Z17.0 Estrogen receptor positive status [ER+]; R59.9 Enlarged lymph nodes, unspecified; Z92.29 Personal history of other drug therapy; Z79.82 Long term (current) use of aspirin; Z80.9 Family history of malignant neoplasm, unspecified; Z79.899 Other long term (current) drug therapy; G43.909 Migraine, unspecified, not intractable, without status migrainosus
CPT/HCPCS: 19302; 36415; 86850; 86900; 86901; 88302; 88305; 88307; 96365; 96366; G0378; J0131; J0330; J0690; J1100; J1644; J1885; J2250; J2370; J2405; J2765; J3010; Q9968

== ENCOUNTER → 2020-06-23 | Outpatient (CLI) | payer MEDICARE, OTHER ==
[~2020-06-23] MED LIST changes: -HEPARIN SOD (PORCINE) 5000UNITS/ML 1ML VIAL/SYRINGE SQ ONE; +ISOVUE-300 61% 50ML VIAL As Ordered ONE; +LIDOCAINE 1% MDV 20ML VIAL As Ordered ONE; -LR 1,000 ML IV ONE; +MIDAZOLAM INJ 2MG/2ML VIAL (J2250 PER 1MG) As Ordered ONE; +ULTR50TA8 PO; -ceFAZolin SOD 2 GM in IV 1 EA IV ONE; +cefTRIAXone SOD 1GM VIAL (J0696 PER 250MG) As Ordered ONE; +diphenhydrAMINE 50MG/ML VIAL (J1200) As Ordered ONE; +fentaNYL 100 MCG/2 ML INJECTION (J3010) As Ordered ONE
--- NOTE | 2020-06-23 12:23 | IRHP ---
[facility] IR Pre-Procedure H & P General Date of Service: Jun 23, 2020 Procedure: Same Day Surgery Interval History and Physical I have seen the patient and reviewed last H & P performed within 30 days. There is no significant interval change. History of Present Illness Chief Complaint The patient is a 70-year-old female admitted with a reason for visit of Lt Breast Ca. PRE-PROCEDURE DIAGNOSIS: Left-sided breast cancer HEART: Normal rate. LUNGS: Normal breathing at rest. ASA Classification ASA Classification: II-Mild systemic disease Mallampati Score: II NPO: Yes Problems with prior sedation: No Obstructive Sleep Apnea: No Plan moderate sedation Allergies Coded Allergies: No Known Allergies (Unverified , 06/08/20) Home Medications Scheduled Propranolol HCl (Inderal LA), 1 CAP PO QPM, (Reported) Discontinued Medications Tramadol HCl (Ultram), 50 MG PO Q6HP PRN for pain Discontinued Reason: Pt states not taking VS, I&O, 24H, Fishbone Vital Signs/I&O Vital Signs Date Time Temp Pulse Resp B/P (MAP) Pulse Ox O2 Delivery O2 Flow Rate FiO2 06/23/20 12:00 97.6 69 18 99 Room Air JACOBY SCHAFFER MD Jun 23, 2020 12:23
[2020-06-23 15:00] VITALS: BP 145/78
--- NOTE | 2020-06-25 10:09 | IRPON ---
IR Postoperative Note Date Of Procedure: Jun 23, 2020 Time Of Procedure: 16:00 IR Postoperative Note IR Ultrasound and fluoroscopy guided port placement. IR Ultrasound of the neck. IR Moderate sedation. Clinical indication: Left-sided breast cancer. Physician: Dr. Schroeder. Procedure: The patient was advised of the benefits, risks, and alternatives of the procedure and informed consent was obtained. A time-out was performed with verification of the patient's name, MRN, site of procedure and type of procedure to be performed. The patient was positioned in the supine position on the angiographic table. The site was prepped and draped in the usual sterile fashion. Moderate sedation was performed by the physician including the presence of an independent trained RN who assisted and monitored the patient's level of consciousness and physiologic status. Following the administration of fentanyl and Versed , the physician spent 45 minutes of continuous face to face time with the patient. Ultrasound of the neck reveals a patent and compressible right internal jugular vein. A capsule maker radiograph reveals no gross abnormality. The neck and anterior chest wall were anesthetized with lidocaine. The right internal jugular vein was accessed using a microintroducer needle under ultrasound guidance, via a lateral approach. An 018 wire was advanced into the superior vena cava, the needle was removed and a microsheath was placed. An Amplatz wire was then passed into the inferior vena cava. An incision at the internal jugular vein access site and anterior chest wall were made using a scalpel. An incision was made at the anterior chest wall. A small pocket was created using a combination of blunt and sharp dissection. A tunneling device was then used to pass the catheter from the pocket to the neck puncture site. An 8- Thai [employer] Smart power port was then positioned in the pocket. The catheter was then measured and cut. The introducer sheath was exchanged for a peel-away sheath. The catheter was passed through the peel-away sheath into the internal jugular vein and the peel-away sheath was removed. The port tip was positioned at the cavoatrial junction. The port was then accessed with a Reyez needle. The port flushes and aspirates well. The puncture site in the neck was closed. The chest wall incision was then closed with 2-0 Vicryl and 4-0 Monocryl. Glue and Steri- Strips were applied. A sterile dressing was then applied. The patient tolerated the procedure well and was returned to the PRU in stable condition. Estimated blood loss: <5 ml. Complications: None. Conclusion: 1. Successful placement of an 8-Thai [employer] Smart power port via the right internal jugular vein. The port is ready for immediate use. 2. Patient to follow up in IR clinic in 2 weeks. Thank you for this referral. JACOBY SCHROEDER MD Jun 25, 2020 10:09
== END ==
LOC: M IRPRO 11:54
PROVIDERS: ATTEND Radiology Diagnostic Radiology
DX: C50.912 Malignant neoplasm of unspecified site of left female breast (principal)
CPT/HCPCS: 36561; 99152; 99153; C1769; C1788; C1894; J0696; J1200; J1642; J1644; J2250; J3010

== ENCOUNTER → 2020-07-20 | Outpatient (POV) | payer MEDICARE, OTHER ==
[~2020-07-20] VITALS: Ht 154.9 cm; Wt 67.3 kg
[~2020-07-20] MED LIST changes: -ISOVUE-300 61% 50ML VIAL As Ordered ONE; +LIDO1CRE42 TOP; -LIDOCAINE 1% MDV 20ML VIAL As Ordered ONE; -MIDAZOLAM INJ 2MG/2ML VIAL (J2250 PER 1MG) As Ordered ONE; -cefTRIAXone SOD 1GM VIAL (J0696 PER 250MG) As Ordered ONE; -diphenhydrAMINE 50MG/ML VIAL (J1200) As Ordered ONE; -fentaNYL 100 MCG/2 ML INJECTION (J3010) As Ordered ONE
[2020-07-20 10:30] VITALS: BP 155/70
--- NOTE | 2020-07-21 08:36 | IRPN ---
[facility] IR Progress Note IR Progress Note DATE: July 20, 2020 FOLLOW-UP: Status post port placement. Patient states port site feels good. No pain, no fevers, no chills. Patient reports the port has been used without any issues. ON EXAMINATION: Port site appears to be healing well. No redness, tenderness or fluctuance at site. IMPRESSION: Doing well status post port placement. No further follow-up scheduled unless initiated by patient and/or referring provider. Thank you for this referral Allergies Coded Allergies: No Known Allergies (Unverified , 06/08/20) VS,Fishbone, I+O VS, Fishbone, I+O Vital Signs Date Time Temp Pulse Resp B/P (MAP) Pulse Ox O2 Delivery O2 Flow Rate FiO2 07/20/20 10:30 97.7 89 20 155/70 (98) 99 Room Air JACOBY SCHAFFER MD July 21, 2020 08:36
== END ==
LOC: M IRPOV 10:10
PROVIDERS: ATTEND Radiology Diagnostic Radiology
DX: Z45.2 Encounter for adjustment and management of vascular access device (principal)

== ENCOUNTER → 2020-08-04 | Outpatient (CLI) | payer MEDICARE, OTHER ==
[2020-08-04 10:24] LABS: BLOOD UREA NITROGEN 17 MG/DL (7-18); CREATININE FOR GFR 0.75 MG/DL (0.55-1.30); GLOMERULAR FILTRATION RATE > 60.0 (>39)
== END ==
LOC: M LAB 09:18
PROVIDERS: ATTEND Internal Medicine Pulmonary Disease
DX: R91.1 Solitary pulmonary nodule (principal)

== ENCOUNTER → 2020-08-17 | Outpatient (CLI) | payer MEDICARE, OTHER ==
[~2020-08-17] MED LIST changes: +ISOVUE-370 76% 100ML VIAL As Ordered ONE
--- NOTE | 2020-08-17 15:44 | REP ---
INDICATION: SOLITARY PULMONARY NODULE COMPARISON: There is no prior CT scan of the chest for comparison, however, lung base images from prior abdominal and pelvic CT obtained 05/01/2018 from an outside institution showed a nodule in the left lower lobe. That examination has been acquired for comparison. TECHNIQUE: Standard helical technique after the intravenous administration of 100 cc Isovue 370. FINDINGS: There is no mediastinal or hilar adenopathy. There are no pleural or pericardial effusions. The imaged upper abdomen is essentially unchanged from the prior exam. There appears to be diffuse low density throughout the a patent parenchyma compared to the spleen but without pre contrast-enhanced images for assessment it is only suggested at this time. Evaluation of the lung schultz shows biapical pleuroparenchymal scarring. This is seen with some nodularity. There is a 9 mm size nodule in the left lower lobe which is completely unchanged from prior lung base images. No additional abnormal nodules, masses, or opacities are present. Bone window technique throughout the examination shows the osseous structures to be within normal limits for the patient's age. IMPRESSION: 1. Stable nodule in the left lower lobe as described above. This nodule has been stable for 16 months. The nodule represents lung rads category [address] screening of the lungs is recommended if clinically relevant. 2. Evidence of pleuroparenchymal scarring with no priors for comparison. I would recommend a shorter interval follow-up of 3 months. There is no revised Fleischner society criteria on the recommendation for follow-up of such a finding. 3. Probable diffuse fatty infiltration of the liver with limitation as described above. Consider hepatic ultrasound for further evaluation if clinically relevant. <Electronically signed by Joshua Carpenter > 08/17/20 [id number]
== END ==
LOC: M RAD 09:00
PROVIDERS: ATTEND Internal Medicine Pulmonary Disease
DX: R91.1 Solitary pulmonary nodule (principal)
CPT/HCPCS: 71260; Q9967

== ENCOUNTER → 2020-09-14 | Outpatient (CLI) | payer MEDICARE, OTHER ==
[~2020-09-14] MED LIST changes: -ISOVUE-370 76% 100ML VIAL As Ordered ONE
== END ==
LOC: M ONCR 08:43
PROVIDERS: ATTEND Radiology Radiation Oncology
DX: C50.912 Malignant neoplasm of unspecified site of left female breast (principal); Z80.42 Family history of malignant neoplasm of prostate; Z90.710 Acquired absence of both cervix and uterus; Z92.21 Personal history of antineoplastic chemotherapy

== ENCOUNTER 2020-10-01 08:58 | Outpatient (RCR) | payer MEDICARE, OTHER | END 2020-10-02 | LOC: M ONCR 08:58 | PROVIDERS: ATTEND General Practice | DX: C50.812 Malignant neoplasm of overlapping sites of left female breast (principal) ==

== ENCOUNTER → 2020-11-02 | Outpatient (RCR) | payer MEDICARE, OTHER ==
[~2020-11-02] MED LIST changes: +ANAS1TAB2 PO; +ONDA-84 PO; -ONDA8TAB10 PO; -PROC10TA4 PO; +PROC10TA5 PO
== END ==
LOC: M ONCR 10-07 08:42
PROVIDERS: ATTEND General Practice
DX: C50.812 Malignant neoplasm of overlapping sites of left female breast (principal)

== ENCOUNTER 2020-11-26 08:44 | Outpatient (RCR) | payer MEDICARE, OTHER ==
[~2020-11-26 08:44] MED LIST changes: -ANAS1TAB2 PO; -ONDA-84 PO; +ONDA8TAB10 PO; +PROC10TA4 PO; -PROC10TA5 PO
== END 2020-12-02 ==
LOC: M ONCR 08:44
PROVIDERS: ATTEND General Practice
DX: C50.812 Malignant neoplasm of overlapping sites of left female breast (principal)

== ENCOUNTER → 2020-12-21 | Outpatient (CLI) | payer MEDICARE, OTHER ==
[~2020-12-21] MED LIST changes: +ANAS1TAB2 PO
--- NOTE | 2020-12-21 15:14 | DEXAMM ---
INDICATION: BREAST CA ON ANASTROZOLE. COMPARISON: None. TECHNIQUE: Bone density was measured using dual-energy x-ray absorptiometry (DEXA). FINDINGS: AP SPINE L1-L4 BMD 1.207 g/cm2 Young Adult T-Score 0.1 Age Matched Z-Score 1.8. LT FEMUR, TOTAL BMD 0.999 g/cm2 Young Adult T-Score -0.1 Age Matched Z-Score 1.5. LT NECK BMD 0.929 g/cm2 Young Adult T-Score -0.8 Age Matched Z-Score 1.0. RT FEMUR, TOTAL BMD 1.008 g/cm2 Young Adult T-Score 0.0 Age Matched Z-Score 1.6. RT NECK BMD 0.917 g/cm2 Young Adult T-Score -0.9 Age Matched Z-Score 0.9. IMPRESSION: There is normal bone density of the spine. There is normal bone density of the left hip. There is normal bone density of the right hip. FOLLOW-UP: Recommendation for the next bone density exam: Five years. <Electronically signed by Royce Loera > 12/21/20 [id number]
== END ==
LOC: M WHC 11:13
PROVIDERS: ATTEND Specialist
DX: C50.919 Malignant neoplasm of unspecified site of unspecified female breast (principal); Z79.811 Long term (current) use of aromatase inhibitors

== ENCOUNTER → 2021-02-14 | Outpatient (CLI) | payer MEDICARE, OTHER ==
--- NOTE | 2021-02-14 10:23 | REP ---
INDICATION: MALIGNANT NEOPLASM OVERLAPPING SITES OF LEFT BREAST. COMPARISON: Bilateral diagnostic mammogram, 02/12/2020. TECHNIQUE: 2D and 3D cc and MLO views of both breasts were obtained. FINDINGS: The patient is status post interval left partial mastectomy and radiation therapy. There is also been placement of a chemotherapy port in the right axilla. The Volpara volumetric breast density pattern is B, there are scattered areas of fibroglandular density. There is architectural distortion, trabecular thickening and skin thickening of the left breast. There are surgical clips at the partial mastectomy site. There is a chemotherapy port in the right axilla. The right breast appears stable. IMPRESSION: BIRADS/ACR : Category 3: Probably benign. This mammogram was interpreted with the aid of an FDA-approved computer-aided detection system. The patient states she had a clinical breast exam in January 2021. The patient letter being requested is M3. RECOMMENDATION: Six-month follow-up mammographic evaluation of the left breast. The patient does not need a repeat screening examination of the right breast for 12 months. <Electronically signed by Chris Clark > 02/14/21 [id number]
== END ==
LOC: M WHC 08:21
PROVIDERS: ATTEND Surgery
DX: R92.8 Other abnormal and inconclusive findings on diagnostic imaging of breast (principal); C50.812 Malignant neoplasm of overlapping sites of left female breast
CPT/HCPCS: 77066; G0279

== ENCOUNTER 2021-04-12 08:47 | Outpatient (RCR) | payer MEDICARE, OTHER ==
[~2021-04-12 08:47] MED LIST changes: +ONDA-84 PO; -ONDA8TAB10 PO; -PROC10TA4 PO; +PROC10TA5 PO
== END 2021-05-02 ==
LOC: M PT 08:47
PROVIDERS: ATTEND Surgery
DX: C50.812 Malignant neoplasm of overlapping sites of left female breast (principal)

== ENCOUNTER → 2021-06-01 | Outpatient (CLI) | payer MEDICARE, OTHER ==
[~2021-06-01] MED LIST changes: +AROM25TA PO; +ROSU10TA6
== END ==
LOC: M ONCR 08:59
PROVIDERS: ATTEND General Practice
DX: C50.812 Malignant neoplasm of overlapping sites of left female breast (principal); G62.9 Polyneuropathy, unspecified; N60.31 Fibrosclerosis of right breast; E03.9 Hypothyroidism, unspecified; Z92.21 Personal history of antineoplastic chemotherapy; Z92.3 Personal history of irradiation

== ENCOUNTER → 2021-07-04 | Outpatient (CLI) | payer MEDICARE, OTHER ==
[~2021-07-04] MED LIST changes: +CIPR-249 PO; +METR-265 PO
== END ==
LOC: M WHC 09:22
PROVIDERS: ATTEND Surgery
DX: C50.812 Malignant neoplasm of overlapping sites of left female breast (principal)
CPT/HCPCS: 77065; G0279

== ENCOUNTER → 2021-11-29 | Outpatient (CLI) | payer MEDICARE, OTHER | LOC: M PLAIMG 08:55 | PROVIDERS: ATTEND Internal Medicine Critical Care Medicine | DX: R91.1 Solitary pulmonary nodule (principal) ==

== ENCOUNTER → 2021-12-13 | Outpatient (CLI) | payer MEDICARE, OTHER ==
[~2021-12-13] MED LIST changes: +SYNT137T7
[2021-12-13 09:52] LABS: BASO # 0.1 10^3/uL (0.0-0.2); EOS # 0.2 10^3/uL (0.0-0.5); EOS % 3.2 % (0.0-3.0); HEMATOCRIT 40.7 % (36.0-47.0); HEMOGLOBIN 12.7 g/dl (12.0-15.5); LYMPH # 1.5 10^3/uL (1.5-5.0); LYMPH % 25.3 % (24.0-44.0); MEAN CORPUSCULAR HEMOGLOBIN 28.9 pg (27.0-33.0); MEAN CORPUSCULAR HGB CONC 31.2 g/dl (32.0-36.5); MEAN CORPUSCULAR VOLUME 92.7 fl (80.0-96.0); MONO # 0.6 10^3/uL (0.0-0.8); MONO % 9.5 % (2.0-8.0); NEUTROPHILS # 3.6 10^3/uL (1.5-8.5); NEUTROPHILS % 60.8 % (36.0-66.0); PLATELET COUNT, AUTOMATED 265 10^3/uL (150-450); RED BLOOD COUNT 4.39 10^6/uL (4.00-5.40); WHITE BLOOD COUNT 5.9 10^3/uL (4.0-10.0)
[2021-12-13 10:30] LABS: ERYTHROCYTE SEDIMENTATION RATE 32 mm/hr (0-30)
[2021-12-13 10:38] LABS: C REACTIVE PROTEIN QUANTITATIV 0.62 MG/DL (0.00-0.30); RHEUMATOID FACTOR QUANT < 10.0 IU/ML (<15.0)
[2021-12-14 12:08] LABS: ANTINUCLEAR ANTIBODIES DIRECT Negative (Negative)
== END ==
LOC: M LAB 09:09
PROVIDERS: ATTEND Orthopaedic Surgery
DX: M18.0 Bilateral primary osteoarthritis of first carpometacarpal joints (principal)

== ENCOUNTER → 2022-02-16 | Outpatient (CLI) | payer MEDICARE, OTHER | LOC: M WHC 07:53 | PROVIDERS: ATTEND Surgery | DX: C50.812 Malignant neoplasm of overlapping sites of left female breast (principal) | CPT/HCPCS: 77066; G0279 ==

== ENCOUNTER → 2022-04-18 | Outpatient (POV) | payer MEDICARE, OTHER ==
[~2022-04-18] VITALS: Ht 154.9 cm; Wt 67.3 kg
[2022-04-18 09:20] VITALS: BP 124/70
== END ==
LOC: M IRPOV 09:07
PROVIDERS: ATTEND Radiology Diagnostic Radiology
DX: Z45.2 Encounter for adjustment and management of vascular access device (principal)

== ENCOUNTER → 2022-05-11 | Outpatient (CLI) | payer MEDICARE, OTHER | LOC: M LABSMTC 09:49 | PROVIDERS: ATTEND Anesthesiology | DX: Z01.812 Encounter for preprocedural laboratory examination (principal); Z20.822 Contact with and (suspected) exposure to COVID-19 ==

== ENCOUNTER → 2022-05-15 | Outpatient (CLI) | payer MEDICARE, OTHER ==
[~2022-05-15] MED LIST changes: +LIDOCAINE 1% MDV 20ML VIAL As Ordered ONE; +MIDAZOLAM INJ 2MG/2ML VIAL As Ordered ONE; +ceFAZolin 2 GM/D5W 50 ML IV BAG As Ordered ONE; +ceFAZolin SOD 2 GM in IV 1 EA IV ONE; +diphenhydrAMINE 50MG/ML VIAL As Ordered ONE; +fentaNYL 100 MCG/2 ML INJECTION As Ordered ONE
[2022-05-15] MEDS: NS 1,000 ML IV SCH ×2 (12:36→12:50)
[2022-05-15 14:50] VITALS: BP 127/62
== END ==
LOC: M IRPRO 11:19
PROVIDERS: ATTEND Radiology Diagnostic Radiology
DX: Z45.2 Encounter for adjustment and management of vascular access device (principal); C50.912 Malignant neoplasm of unspecified site of left female breast; Z79.890 Hormone replacement therapy
CPT/HCPCS: 36590; 99152; J0690; J1200; J1644; J2250; J3010

== ENCOUNTER → 2022-05-30 | Outpatient (POV) | payer MEDICARE, OTHER ==
[~2022-05-30] VITALS: Ht 154.9 cm; Wt 68.1 kg
[~2022-05-30] MED LIST changes: -LIDOCAINE 1% MDV 20ML VIAL As Ordered ONE; -MIDAZOLAM INJ 2MG/2ML VIAL As Ordered ONE; -ceFAZolin 2 GM/D5W 50 ML IV BAG As Ordered ONE; -ceFAZolin SOD 2 GM in IV 1 EA IV ONE; -diphenhydrAMINE 50MG/ML VIAL As Ordered ONE; -fentaNYL 100 MCG/2 ML INJECTION As Ordered ONE
[2022-05-30 09:30] VITALS: BP 149/73
== END ==
LOC: M IRPOV 09:21
PROVIDERS: ATTEND Radiology Diagnostic Radiology
DX: Z45.2 Encounter for adjustment and management of vascular access device (principal)

== ENCOUNTER → 2022-12-14 | Outpatient (CLI) | payer MEDICARE, OTHER ==
[~2022-12-14] MED LIST changes: -LIDO1CRE42 TOP; +LIDO30CR18 TOP; +SYNT175T2
== END ==
LOC: M ONCR 09:35
PROVIDERS: ATTEND General Practice
DX: C50.812 Malignant neoplasm of overlapping sites of left female breast (principal); Z71.2 Person consulting for explanation of examination or test findings; Z79.811 Long term (current) use of aromatase inhibitors; Z79.899 Other long term (current) drug therapy; Z85.89 Personal history of malignant neoplasm of other organs and systems; Z92.21 Personal history of antineoplastic chemotherapy; Z92.3 Personal history of irradiation

== ENCOUNTER → 2023-02-20 | Outpatient (CLI) | payer MEDICARE, OTHER | LOC: M WHC 08:48 | PROVIDERS: ATTEND Nurse Practitioner Women's Health | DX: C50.812 Malignant neoplasm of overlapping sites of left female breast (principal) | CPT/HCPCS: 77066; G0279 ==

== ENCOUNTER → 2023-02-20 | Outpatient (CLI) | payer MEDICARE, OTHER | LOC: M WHC 08:44 | PROVIDERS: ATTEND Specialist | DX: M81.0 Age-related osteoporosis without current pathological fracture (principal); D05.82 Other specified type of carcinoma in situ of left breast | CPT/HCPCS: 77066; 77080; G0279 ==

== ENCOUNTER → 2023-03-07 | Outpatient (CLI) | payer MEDICARE, OTHER | LOC: M LAB 08:02 | PROVIDERS: ATTEND Internal Medicine Endocrinology, Diabetes & Metabolism | DX: E03.9 Hypothyroidism, unspecified (principal) ==

== ENCOUNTER → 2023-05-10 | Outpatient (CLI) | payer MEDICARE, OTHER | LOC: M RAD 13:36 | PROVIDERS: ATTEND Internal Medicine Critical Care Medicine | DX: R91.8 Other nonspecific abnormal finding of lung field (principal) ==

== ENCOUNTER → 2023-12-11 | Outpatient (CLI) | payer MEDICARE, OTHER ==
[~2023-12-11] MED LIST changes: +GABA-1171; +MELO15TA28 PO; -ROSU10TA6; +ROSU10TA61
== END ==
LOC: M PLAIMG 08:07
PROVIDERS: ATTEND Internal Medicine Critical Care Medicine
DX: R91.8 Other nonspecific abnormal finding of lung field (principal)

== ENCOUNTER → 2023-12-14 | Outpatient (CLI) | payer MEDICARE, OTHER | LOC: M ONCR 09:01 | PROVIDERS: ATTEND General Practice | DX: C50.812 Malignant neoplasm of overlapping sites of left female breast (principal); C77.3 Secondary and unspecified malignant neoplasm of axilla and upper limb lymph nodes; I89.0 Lymphedema, not elsewhere classified; Z79.811 Long term (current) use of aromatase inhibitors; Z79.899 Other long term (current) drug therapy; Z92.21 Personal history of antineoplastic chemotherapy; Z92.3 Personal history of irradiation ==

== ENCOUNTER → 2024-02-11 | Outpatient (CLI) | payer MEDICARE, OTHER ==
[~2024-02-11] MED LIST changes: +ISOVUE-300 61% 100ML VIAL As Ordered ONE; +LIDOCAINE 1% MDV 20ML VIAL As Ordered ONE; +methylPREDNISolone SUSP 40MG/ML 1ML VIAL (DEPO MEDROL) As Ordered ONE
== END ==
LOC: M RAD 10:46
PROVIDERS: ATTEND Physician Assistant Surgical
DX: M16.11 Unilateral primary osteoarthritis, right hip (principal)
CPT/HCPCS: 20610; 77002; J1010; Q9967

== ENCOUNTER → 2024-06-09 | Outpatient (CLI) | payer MEDICARE, OTHER ==
[~2024-06-09] MED LIST changes: +BACL5TAB2; -ISOVUE-300 61% 100ML VIAL As Ordered ONE; -LIDOCAINE 1% MDV 20ML VIAL As Ordered ONE; +OXYC1TAB23; -methylPREDNISolone SUSP 40MG/ML 1ML VIAL (DEPO MEDROL) As Ordered ONE
== END ==
LOC: M WHC 12:26
PROVIDERS: ATTEND Specialist
DX: Z12.31 Encounter for screening mammogram for malignant neoplasm of breast (principal)

== ENCOUNTER → 2024-12-16 | Outpatient (CLI) | payer MEDICARE, OTHER | LOC: M ONCR 08:56 | PROVIDERS: ATTEND General Practice | DX: Z08 Encounter for follow-up examination after completed treatment for malignant neoplasm (principal); Z85.3 Personal history of malignant neoplasm of breast; M12.9 Arthropathy, unspecified; Z92.21 Personal history of antineoplastic chemotherapy; Z92.3 Personal history of irradiation; Z98.890 Other specified postprocedural states; Z79.811 Long term (current) use of aromatase inhibitors; Z79.899 Other long term (current) drug therapy ==

== ENCOUNTER → 2025-01-13 | Outpatient (CLI) | payer MEDICARE, OTHER ==
[~2025-01-13] MED LIST changes: -ROSU10TA61; +ROSU10TA90
== END ==
LOC: M PLAIMG 09:11
PROVIDERS: ATTEND Internal Medicine Critical Care Medicine
DX: R91.8 Other nonspecific abnormal finding of lung field (principal)